=== PATIENT | male | born 1945 | race Caucasian/White ===

== ENCOUNTER 2018-04-22 17:03 | Inpatient (IN) | payer MEDICARE ==
--- NOTE | 2018-04-22 18:16 | ED ---
General Adult HPI - General Chief complaint: Recheck/Abnormal Lab/Rx Stated complaint: A-Fib Time Seen by Provider: 04/22/18 17:03 Source: patient, EMS, RN notes reviewed Mode of arrival: EMS Limitations: physical limitation - History of Present Illness Initial comments: This is a 73-year-old male with a history of hypertension diabetes who apparently was taken to [facility] today because of a headache and was found have a new onset atrial fibrillation with a rapid ventricular response. He was transferred here for further evaluation and treatment. He did have a CAT scan done which showed no acute findings. Patient also apparently had low blood pressure running 10 to 110 down from his normal 1:30 systolic. Currently the headache is been going on for 2 days.. No other symptoms no other modifying factors.6 - Related Data Home Medications Medication Instructions Recorded Confirmed Allopurinol [Zyloprim] 300 mg PO DAILY 04/22/18 04/22/18 Aspirin EC [Ecotrin Low Dose] 81 mg PO DAILY 04/22/18 04/22/18 Atorvastatin [Lipitor] 20 mg PO HS 04/22/18 04/22/18 Atorvastatin [Lipitor] 20 mg PO HS 04/22/18 04/22/18 Carvedilol [Coreg] 6.25 mg PO BID 04/22/18 04/22/18 Cephalexin [Keflex] 500 mg PO Q8HR 04/22/18 04/22/18 Cholecalciferol [Vitamin D3] 1,000 unit PO DAILY 04/22/18 04/22/18 Colchicine [Colcrys] 0.6 mg PO DAILY 04/22/18 04/22/18 Cyanocobalamin (Vitamin B-12) 2,500 mcg PO DAILY 04/22/18 04/22/18 [Vitamin B12] DULoxetine HCL [Cymbalta] 60 mg PO DAILY 04/22/18 04/22/18 Furosemide [Lasix] 40 mg PO BID 04/22/18 04/22/18 Gabapentin [Neurontin] 200 mg PO BID 04/22/18 04/22/18 Levothyroxine Sodium [Synthroid] 50 mcg PO DAILY 04/22/18 04/22/18 Losartan Potassium [Cozaar] 25 mg PO DAILY 04/22/18 04/22/18 Pantoprazole [Protonix] 40 mg PO BID 04/22/18 04/22/18 Potassium Chloride ER [K-Dur 20] 20 meq PO BID 04/22/18 04/22/18 Tamsulosin [Flomax] 0.4 mg PO DAILY 04/22/18 04/22/18 metFORMIN HCL [Glucophage] 500 mg PO BID 04/22/18 04/22/18 Allergies Allergy/AdvReac Type Severity Reaction Status Date / Time No Known Allergies Allergy Verified 04/22/18 17:33 Review of Systems ROS Statement: Those systems with pertinent positive or pertinent negative responses have been documented in the HPI. ROS Other: All systems not noted in ROS Statement are negative. Past Medical History Past Medical History: Diabetes Mellitus, Hypertension History of Any Multi-Drug Resistant Organisms: None Reported Past Surgical History: Ear Surgery Additional Past Surgical History / Comment(s): stents, abdominal surgery Past Psychological History: Depression Smoking Status: Current every day smoker Past Alcohol Use History: None Reported Past Drug Use History: None Reported General Exam - General Exam Comments Initial Comments: This a well-developed well-nourished awake alert oriented 3 male Limitations: physical limitation General appearance: alert, in no apparent distress Head exam: Present: atraumatic, normocephalic, normal inspection Eye exam: Present: normal appearance, PERRL, EOMI. Absent: scleral icterus, conjunctival injection, periorbital swelling ENT exam: Present: normal exam, mucous membranes moist Neck exam: Present: normal inspection. Absent: tenderness, meningismus, lymphadenopathy Respiratory exam: Present: normal lung sounds bilaterally. Absent: respiratory distress, wheezes, rales, rhonchi, stridor Cardiovascular Exam: Present: irregular rhythm, normal heart sounds. Absent: systolic murmur, diastolic murmur, rubs, gallop, clicks GI/Abdominal exam: Present: soft, normal bowel sounds. Absent: distended, tenderness, guarding, rebound, rigid Extremities exam: Present: full ROM, normal capillary refill, other (Edema to the left lower extremity compared to the right this is a chronic event going on for more than one half years he states). Absent: tenderness, pedal edema, joint swelling, calf tenderness Back exam: Present: normal inspection Neurological exam: Present: alert, oriented X3, CN II-XII intact Psychiatric exam: Present: normal affect, normal mood Skin exam: Present: warm, dry, intact, normal color. Absent: rash Course Vital Signs 04/22/18 17:12 Temperature 97.5 F L Pulse Rate 68 Respiratory 17 Rate Blood Pressure 132/63 O2 Sat by Pulse 97 Oximetry Medical Decision Making - Medical Decision Making I did review the imaging and reports. Patient will be admitted for evaluation by cardiology at did discuss case with Dr. Jones who did come to see the patient. Disposition Clinical Impression: Rapid atrial fibrillation Disposition: ADMITTED IP TO THIS HOSP Condition: Stable Referrals: Jose Mcpherson MD [Primary Care Provider] - 1-2 days
[2018-04-22] MEDS ORDERED: NALOXONE 0.4 MG/ML 1 ML VIAL IV PRN (19:13)
[2018-04-22] MEDS ORDERED: HEPARIN SOD,PORK IN 0.45% NACL 25,000 UNIT in 0.45% NACL 1 500ML.BAG IV SCH (19:30)
[2018-04-22] MEDS: SODIUM CHLORIDE 0.9% 1,000 ML IV SCH (19:31)
[2018-04-22 20:38] LABS: Glucose,Whole Blood 155 mg/dL (75-99)
[2018-04-22 20:40] VITALS: BMI 42.9
[2018-04-22] MEDS: ATORVASTATIN 20 MG TAB PO SCH (21:06)
[2018-04-22] MEDS: CARVEDILOL 6.25 MG TAB PO SCH (21:06)
[2018-04-22] MEDS: FUROSEMIDE 40 MG TAB PO SCH (21:06)
[2018-04-22] MEDS: GABAPENTIN 100 MG CAP PO SCH (21:06)
[2018-04-22] MEDS: metFORMIN 500 MG TAB PO SCH (21:06)
[2018-04-22] MEDS: PANTOPRAZOLE 40 MG TABLET PO SCH (21:07)
[2018-04-22] MEDS: POTASSIUM CHLORIDE ER 20 MEQ TAB.ER PO SCH (21:07)
[2018-04-22 23:06] LABS: Basophils % (A) 0 %; Eosinophils # (A) 0.2 k/uL (0-0.7); Eosinophils % (A) 3 %; HCT 34.6 % (39.0-53.0); Lymphocytes # (A) 1.1 k/uL (1.0-4.8); Lymphocytes % (A) 16 %; MCH 31.7 pg (25.0-35.0); MCHC 31.9 g/dL (31.0-37.0); MCV 99.6 fL (80.0-100.0); Macrocytosis Slight; Mean Platelet Volume 7.5; Monocytes # (A) 0.6 k/uL (0-1.0); Monocytes % (A) 9 %; Neutrophils # (A) 4.7 k/uL (1.3-7.7); Neutrophils % (A) 69 %; Platelet Count 170 k/uL (150-450); RBC 3.47 m/uL (4.30-5.90); RDW 15.3 % (11.5-15.5); WBC 6.8 k/uL (3.8-10.6)
[2018-04-22 23:14] LABS: Calcium 8.8 mg/dL (8.4-10.2); Potassium 3.9 mmol/L (3.5-5.1)
[2018-04-22] MEDS: CEPHALEXIN 500 MG CAP PO SCH (23:27)
[2018-04-23] MEDS ORDERED: HEPARIN SODIUM,PORCINE 5,000 UNIT/ML 1 ML VIAL IV PRN (02:46)
[2018-04-23 06:18] LABS: Glucose,Whole Blood 123 mg/dL (75-99)
[2018-04-23 06:44] LABS: Anion Gap 6 mmol/L; Blood Urea Nitrogen 32 mg/dL (9-20); Calcium 8.7 mg/dL (8.4-10.2); Carbon Dioxide 22 mmol/L (22-30); Chloride 106 mmol/L (98-107); Glucose 108 mg/dL (74-99); Sodium 134 mmol/L (137-145)
[2018-04-23] MEDS: FUROSEMIDE 40 MG TAB PO SCH (06:46)
[2018-04-23] MEDS: CARVEDILOL 6.25 MG TAB PO SCH ×2 (06:46→16:45)
[2018-04-23] MEDS: LEVOTHYROXINE 50 MCG TAB PO SCH (06:46)
[2018-04-23] MEDS: metFORMIN 500 MG TAB PO SCH ×2 (06:46→16:45)
[2018-04-23 06:55] LABS: Potassium 4.3 mmol/L (3.5-5.1)
[2018-04-23 08:47] LABS: Basophils # (A) 0.1 k/uL (0-0.2); Basophils % (A) 1 %; Eosinophils # (A) 0.2 k/uL (0-0.7); Eosinophils % (A) 3 %; HCT 34.6 % (39.0-53.0); HGB 10.9 gm/dL (13.0-17.5); Hypochromasia Moderate; Lymphocytes # (A) 0.8 k/uL (1.0-4.8); Lymphocytes % (A) 13 %; MCH 32.6 pg (25.0-35.0); MCHC 31.4 g/dL (31.0-37.0); MCV 103.8 fL (80.0-100.0); Macrocytosis Moderate; Mean Platelet Volume 7.8; Monocytes # (A) 0.7 k/uL (0-1.0); Monocytes % (A) 11 %; Neutrophils # (A) 4.2 k/uL (1.3-7.7); Neutrophils % (A) 69 %; Platelet Count 169 k/uL (150-450); RBC 3.33 m/uL (4.30-5.90); RDW 15.5 % (11.5-15.5); WBC 6.1 k/uL (3.8-10.6)
[2018-04-23] MEDS: CEPHALEXIN 500 MG CAP PO SCH ×3 (09:39→20:51)
[2018-04-23] MEDS: CHOLECALCIFEROL 1,000 UNIT TAB PO SCH (10:28)
[2018-04-23] MEDS: COLCHICINE 0.6 MG EACH PO SCH (10:28)
[2018-04-23] MEDS: DULoxetine HCL 60 MG CAPSULE.DR PO SCH (10:29)
[2018-04-23] MEDS: POTASSIUM CHLORIDE ER 20 MEQ TAB.ER PO SCH ×2 (10:29→20:50)
[2018-04-23] MEDS: ASPIRIN 81 MG PO SCH (10:29)
[2018-04-23] MEDS: TAMSULOSIN 0.4 MG CAP.ER.24H PO SCH (10:29)
[2018-04-23] MEDS: GABAPENTIN 100 MG CAP PO SCH ×2 (10:29→20:51)
[2018-04-23] MEDS: PANTOPRAZOLE 40 MG TABLET PO SCH ×2 (10:29→20:51)
[2018-04-23] MEDS: LOSARTAN 25 MG TAB PO SCH (10:29)
[2018-04-23] MEDS: CYANOCOBALAMIN 500 MCG TAB PO SCH (10:29)
[2018-04-23] MEDS: ALLOPURINOL 300 MG TAB PO SCH (10:29)
[2018-04-23] MEDS: APIXABAN 5 MG TAB PO SCH ×2 (10:56→20:54)
[2018-04-23] MEDS: FUROSEMIDE 10 MG/ML 4 ML VIAL IV SCH ×2 (10:56→20:50)
[2018-04-23 11:34] LABS: Glucose,Whole Blood 137 mg/dL (75-99)
--- NOTE | 2018-04-23 12:04 | ECHOF ---
Referral Reason:atrial fibrillation MEASUREMENTS -------- HEIGHT: 157.5 cm WEIGHT: 138.8 kg BP: 121/76 RVIDd: 4.8 cm (< 3.3) IVSd: 1.2 cm (0.6 - 1.1) LVIDd: 6.0 cm (3.9 - 5.3) LVPWd: 1.7 cm (0.6 - 1.1) IVSs: 1.5 cm LVIDs: 4.7 cm LVPWs: 1.5 cm Ao Diam: 3.3 cm (2.0 - 3.7) AV Cusp: 2.2 cm (1.5 - 2.6) LA Diam: 3.7 cm (2.7 - 3.8) MV EXCURSION: 32.104 mm (> 18.000) MV EF SLOPE: 117 mm/s (70 - 150) EPSS: 1.1 cm MV E Moises: 0.66 m/s MV DecT: 234 ms MV A Moises: 0.49 m/s MV E/A Ratio: 1.36 RAP: 5.00 mmHg RVSP: 45.35 mmHg FINDINGS -------- Undetermined rhythm. Morbid Obesity This was a techncally difficult study with suboptimal views, , Lumason utilized for enhancement of images. There is mild concentric left ventricular hypertrophy. Overall left ventricular systolic function i s mildly impaired with, an EF between 45 - 50 %. The right ventricle is severely enlarged. The left atrial size is normal. The right atrial size is normal. 5.0mg OF Lumason UTLIZED: 2 OR MORE WALL SEGMENTS NOT VISUALIZED. There is mild aortic valve sclerosis. There is no evidence of aortic regurgitation. Mild mitral annular calcification present. Mild mitral regurgitation is present. Mild tricuspid regurgitation present. There is mild pulmonary hypertension. The right ventricular systolic pressure, as measured by Doppler, is 45.35mmHg. Trace/mild (physiologic) pulmonic regurgitation. The aortic root size is normal. Echo free space represents a pericardial fat pad. CONCLUSIONS -------- 1. Morbid Obesity 2. This was a techncally difficult study with suboptimal views, , Lumason utilized for enhancement of images. 3. There is mild concentric left ventricular hypertrophy. 4. The right ventricle is severely enlarged. 5. The left atrial size is normal. 6. The right atrial size is normal. 7. 5.0mg OF Lumason UTLIZED: 2 OR MORE WALL SEGMENTS NOT VISUALIZED. 8. There is mild aortic valve sclerosis. 9. Mild mitral annular calcification present. 10. Mild mitral regurgitation is present. 11. Mild tricuspid regurgitation present. 12. There is mild pulmonary hypertension. 13. The right ventricular systolic pressure, as measured by Doppler, is 45.35mmHg. 14. Trace/mild (physiologic) pulmonic regurgitation. 15. The aortic root size is normal. 16. Echo free space represents a pericardial fat pad. DATABASE DEVELOPER: Jessica Regalado RDCS
--- NOTE | 2018-04-23 15:37 | CONS ---
CONSULTATION This is a 73-year-old gentleman who apparently has underlying hypertension and also has known edema of left lower extremity. He was taken to [facility] because he was complaining of some headache. After arrival he was found to be in atrial fibrillation with moderate ventricular rate and was transferred to [facility]. CT scan of the head did not reveal any acute findings. He has also had some relative hypotension, but at this time his main issue appears to be atrial fibrillation, and this seems to be a new-onset arrhythmia. He has chronic left lower extremity edema, but that seems to have gotten worse. At the time of my evaluation, he is resting comfortably. His headache has resolved and he feels better. I reviewed his rhythm strips and he has converted to sinus rhythm and remains in sinus rhythm at the time of my evaluation. This gentleman has other comorbid conditions, including type 2 diabetes as well. He has had some vascular surgery in his left foot and has chronic edema, which seems to be getting worse. PAST MEDICAL HISTORY: 1. Obesity. 2. Type 2 diabetes. 3. Hypertension. 4. History of some vascular surgery in the left leg with chronic edema. ALLERGIES: NONE. MEDICATIONS AT HOME: 1. Colchicine 0.6 mg daily. 2. Cymbalta. 3. Lasix 40 mg p.o. b.i.d. 4. Cozaar 25 mg daily. 5. Potassium supplements. 6. Flomax. 7. Glucophage 500 mg b.i.d. 8. Aspirin 81 mg daily. 9. Coreg 6.25 mg b.i.d. 10.Lipitor 20 mg daily. PHYSICAL EXAMINATION: Blood pressure is 108/70. Pulse rate is 70 per minute, sinus, regular. HEENT: Unremarkable. Fundus was not examined by me. NECK: Supple. I cannot appreciate JVD. Heart exam reveals S1, S2 with somewhat distant sounds. Lungs reveal diminished air entry. Abdomen is soft, nontender. Lower extremities reveal significant edema of left lower extremity, which is not new. Right lower extremity has trace edema, diminished pulses. Central nervous system is grossly within normal limits. EKG on arrival revealed atrial fibrillation with a moderate ventricular rate, but a repeat EKG revealed sinus mechanism. IMPRESSION: 1. Paroxysmal new-onset atrial fibrillation. 2. Chronic left lower extremity edema. 3. History of type 2 diabetes. 4. Hypertension. RECOMMENDATIONS: I am recommending Eliquis 5 mg b.i.d. and beta chin. I will check echocardiogram to assess LV function and give him some IV diuretics for the lower extremity edema and hopefully discharge him tomorrow. I will also discontinue aspirin, since we have started him on Eliquis 5 mg b.i.d. Thank you very much for the consult. KURTIS / MENDEZ: [id number] /
--- NOTE | 2018-04-23 16:07 | HP ---
HISTORY AND PHYSICAL CHIEF COMPLAINT: Rapid heart beating. HISTORY OF PRESENT ILLNESS: This is the first known admission for this 73-year-old white male. He presented to the emergency room after he had noticed that his heart was beating very fast. He has a history of hypertension, hyperlipidemia, gout, depression, diabetes. He had been at [facility] with complaint of headache and a CT scan was done. It was normal. He denies chest pain, orthopnea, PND, etc. Past medical history, family history, personal and social histories reveal that he has had surgery in the past for a large ventral hernia and problems with peripheral vascular problems affecting the legs and his left leg is extremely enlarged which could be related to chronic venous congestion, but it is difficult by history. ALLERGIES: He is not allergic to any medications. MEDICATION: His medications include atorvastatin 20 mg at bedtime, Zyloprim 300 mg once a day, 81 mg of aspirin, carvedilol 6.25 twice a day, Keflex 500 mg t.i.d., vitamin D3, colchicine 0.6 once a day, B12, duloxetine 60 mg once a day. Furosemide 40 mg b.i.d., gabapentin 200 mg b.i.d., levothyroxine 0.05 mg a day, losartan 25 mg once a day, metformin 500 mg twice a day, pantoprazole 40 mg once a day, KCl 20 mEq once a day, and tamsulosin 0.4 at bedtime. PHYSICAL EXAM: Temperature 97.5 with respirations of 18 and blood pressure 96/51. In general, he appeared to be overweight and in no acute distress. Skin color is normal. Skin is warm, dry. Lymph nodes are not enlarged. Head, ears, eyes, nose, mouth, and throat were normal. Neck veins not distended. Thyroid is not enlarged. Chest is clear. Cardiac exam demonstrated atrial fibrillation with a rapid ventricular response. The abdomen was quite distended, largely due to his upper abdominal hernia. Extremities are normal except for the left leg which was significantly edematous from the knee down. Neurologic is intact. IMPRESSION: 1. Atrial fibrillation with rapid ventricular response. 2. History of hypertension. 3. Type 2 insulin dependent diabetes mellitus. 4. Gout. 5. Venous insufficiency, left lower extremity. PLAN: 1. Bed rest. 2. IV fluids. 3. Try to at least control rate if not rhythm. 4. Echocardiogram. 5. Cardiology consult. MMODL / IJN: [id number] /
[2018-04-23 16:46] LABS: Glucose,Whole Blood 126 mg/dL (75-99)
--- NOTE | 2018-04-23 19:00 | PN ---
PROGRESS NOTE DATE OF SERVICE: 04/23/2018. CHIEF COMPLAINT: New onset atrial fibrillation. HISTORY OF PRESENT ILLNESS: This gentleman is complaining of a little bit of a headache, but otherwise doing well. He is still in atrial fibrillation. He is having his echocardiogram done at this time. PHYSICAL EXAM: Breath sounds are difficult to hear, but they sound clear bilaterally. Cardiac exam is normal the abdomen is protuberant and soft. The left leg remains extremely edematous, which is chronic. IMPRESSION: 1. New onset atrial fibrillation. 2. Congestive heart failure. 3. Headache. PLAN: Await results of echocardiogram. MMODL / IJN: [id number] /
[2018-04-23 20:51] LABS: Glucose,Whole Blood 180 mg/dL (75-99)
[2018-04-23] MEDS: ATORVASTATIN 20 MG TAB PO SCH (20:51)
[2018-04-23] MEDS: SODIUM CHLORIDE 0.9% 1,000 ML IV SCH (20:58)
[2018-04-24 06:19] LABS: Glucose,Whole Blood 113 mg/dL (75-99)
[2018-04-24] MEDS: LEVOTHYROXINE 50 MCG TAB PO SCH (06:22)
[2018-04-24] MEDS: metFORMIN 500 MG TAB PO SCH ×2 (06:22→17:02)
[2018-04-24] MEDS: CARVEDILOL 6.25 MG TAB PO SCH ×2 (06:23→17:02)
[2018-04-24] MEDS: CYANOCOBALAMIN 500 MCG TAB PO SCH (09:05)
[2018-04-24] MEDS: TAMSULOSIN 0.4 MG CAP.ER.24H PO SCH (09:05)
[2018-04-24] MEDS: POTASSIUM CHLORIDE ER 20 MEQ TAB.ER PO SCH ×2 (09:05→21:11)
[2018-04-24] MEDS: APIXABAN 5 MG TAB PO SCH ×2 (09:05→21:11)
[2018-04-24] MEDS: GABAPENTIN 100 MG CAP PO SCH ×2 (09:06→21:11)
[2018-04-24] MEDS: PANTOPRAZOLE 40 MG TABLET PO SCH ×2 (09:06→21:11)
[2018-04-24] MEDS: DULoxetine HCL 60 MG CAPSULE.DR PO SCH (09:06)
[2018-04-24] MEDS: ASPIRIN 81 MG PO SCH (09:06)
[2018-04-24] MEDS: CEPHALEXIN 500 MG CAP PO SCH ×3 (09:06→21:11)
[2018-04-24] MEDS: CHOLECALCIFEROL 1,000 UNIT TAB PO SCH (09:06)
[2018-04-24] MEDS: FUROSEMIDE 10 MG/ML 4 ML VIAL IV SCH (09:07)
[2018-04-24] MEDS: COLCHICINE 0.6 MG EACH PO SCH (09:07)
[2018-04-24] MEDS: ALLOPURINOL 300 MG TAB PO SCH (09:11)
[2018-04-24] MEDS: LOSARTAN 25 MG TAB PO SCH (09:12)
[2018-04-24 10:44] LABS: Calcium 9.2 mg/dL (8.4-10.2); Potassium 4.1 mmol/L (3.5-5.1)
[2018-04-24] MEDS ORDERED: MORPHINE SULFATE 2 MG/ML SYRINGE IVP ONE (11:00)
--- NOTE | 2018-04-24 12:16 | CT ---
EXAMINATION TYPE: CT angio chest DATE OF EXAM: 04/24/2018 11:49 AM COMPARISON: None. HISTORY: Chest pain. CT DLP: 629 mGycm Automated exposure control for dose reduction was used. CONTRAST: CTA scan of the thorax is performed with IV Contrast, patient injected with 80 mL of Isovue 370, pulm onary embolism protocol. . FINDINGS: There is dependent atelectasis in the dependent portions of the lungs. There is emphysemato us change throughout the lungs. There is no significant axillary, mediastinal or hilar adenopathy. The contrast bolus is suboptimal. There are no large pulmonary emboli. There is no pleural or pericardial fluid. The heart is enlarged. There is a 7.1 cm simple appearing cystic lesion in the left upper quadrant. This likely arises from the left kidney. Visualized portions of the upper abdomen are otherwise unremarkable. There is mild hypertrophic spondylosis within the spine. IMPRESSION: 1. SUBOPTIMAL EXAMINATION DEMONSTRATING NO LARGE PULMONARY EMBOLI. 2. CARDIOMEGALY. 3. PROBABLE LEFT RENAL CYST. 4. MILD DEGENERATIVE CHANGE WITHIN THE SPINE.
[2018-04-24 12:25] LABS: Glucose,Whole Blood 103 mg/dL (75-99)
--- NOTE | 2018-04-24 12:41 | PN ---
PROGRESS NOTE Mr. Quinonez is in a sinus rhythm today. He came in with atrial fib. He is on Eliquis 5 mg b.i.d. He has significant edema of left lower extremity which is chronic and not new. I tried some diuretics. I will switch him from IV to oral diuretics at 80 mg in the morning, 40 in the evening, increase activity. He is complaining of constant headache. I will give him extra Strength Tylenol and 1 mg of morphine and see if this will help him. He is in sinus rhythm, S1-S2 heard normally but distantly. No significant murmurs. Lungs are clear. Abdomen is soft. Left lower extremity edema persists but there is no evidence of any cellulitis. Overall, there is some decrease in weight and I will switch him to oral Lasix. MMBRYCEL / IJN: [id number] /
[2018-04-24 16:30] LABS: Glucose,Whole Blood 141 mg/dL (75-99)
[2018-04-24 20:36] LABS: Glucose,Whole Blood 158 mg/dL (75-99)
[2018-04-24] MEDS: SODIUM CHLORIDE 0.9% 1,000 ML IV SCH (21:11)
[2018-04-24] MEDS: ATORVASTATIN 20 MG TAB PO SCH (21:11)
--- NOTE | 2018-04-24 22:34 | PN ---
PROGRESS NOTE CHIEF COMPLAINT: New onset atrial fibrillation with RVR. HISTORY OF PRESENT ILLNESS: This gentleman is complaining a little bit of a headache, but he is improved. He is not having any shortness of breath. He has anticoagulated. PHYSICAL EXAM: His chest is fairly clear. Cardiac is normal except for the atrial fibrillation. The left leg is still very edematous, which is chronic. IMPRESSION: 1. Atrial fibrillation, new onset. 2. Pulmonary emboli. PLAN: 1. Continue with anticoagulation. 2. Increase activity. 3. Home as soon as he is hemodynamically stable. MMODL / IJN: [id number] /
[2018-04-25] MEDS: ACETAMINOPHEN TAB 500 MG TAB PO PRN ×3 (03:11→23:49)
[2018-04-25] MEDS: CARVEDILOL 6.25 MG TAB PO SCH ×2 (06:11→17:12)
[2018-04-25] MEDS: metFORMIN 500 MG TAB PO SCH ×2 (06:11→17:12)
[2018-04-25] MEDS: LEVOTHYROXINE 50 MCG TAB PO SCH (06:11)
[2018-04-25 06:15] LABS: Glucose,Whole Blood 160 mg/dL (75-99)
[2018-04-25] MEDS: LOSARTAN 25 MG TAB PO SCH (08:16)
[2018-04-25] MEDS: GABAPENTIN 100 MG CAP PO SCH ×2 (08:16→20:18)
[2018-04-25] MEDS: CHOLECALCIFEROL 1,000 UNIT TAB PO SCH (08:16)
[2018-04-25] MEDS: APIXABAN 5 MG TAB PO SCH ×2 (08:16→20:18)
[2018-04-25] MEDS: ALLOPURINOL 300 MG TAB PO SCH (08:16)
[2018-04-25] MEDS: TAMSULOSIN 0.4 MG CAP.ER.24H PO SCH (08:16)
[2018-04-25] MEDS: CEPHALEXIN 500 MG CAP PO SCH ×3 (08:16→20:18)
[2018-04-25] MEDS: POTASSIUM CHLORIDE ER 20 MEQ TAB.ER PO SCH ×2 (08:16→20:18)
[2018-04-25] MEDS: DULoxetine HCL 60 MG CAPSULE.DR PO SCH (08:16)
[2018-04-25] MEDS: CYANOCOBALAMIN 500 MCG TAB PO SCH (08:16)
[2018-04-25] MEDS: COLCHICINE 0.6 MG EACH PO SCH (08:16)
[2018-04-25] MEDS: FUROSEMIDE 80 MG TAB PO SCH (08:16)
[2018-04-25] MEDS: ASPIRIN 81 MG PO SCH (08:16)
[2018-04-25] MEDS: PANTOPRAZOLE 40 MG TABLET PO SCH ×2 (08:16→20:18)
[2018-04-25 12:03] LABS: Glucose,Whole Blood 104 mg/dL (75-99)
--- NOTE | 2018-04-25 13:25 | PN ---
PROGRESS NOTE CHIEF COMPLAINT: Atrial fibrillation and pulmonary emboli. HISTORY OF PRESENT ILLNESS: This gentleman is a doing a bit better and he is a bit less short of breath. . is clear. Cardiac exam demonstrates his atrial fibrillation and legs are the same. IMPRESSION: 1. Atrial fibrillation. 2. Pulmonary emboli. PLAN: Continues to do well, he will probably be able to go home tomorrow. MMODL / IJN: [id number] /
[2018-04-25] MEDS: FUROSEMIDE 40 MG TAB PO SCH (15:28)
[2018-04-25 16:49] LABS: Glucose,Whole Blood 143 mg/dL (75-99)
[2018-04-25] MEDS: ATORVASTATIN 20 MG TAB PO SCH (20:18)
[2018-04-25] MEDS: SODIUM CHLORIDE 0.9% 1,000 ML IV SCH (20:18)
[2018-04-25 20:54] LABS: Glucose,Whole Blood 144 mg/dL (75-99)
[2018-04-26 06:04] LABS: Glucose,Whole Blood 133 mg/dL (75-99)
[2018-04-26] MEDS: LEVOTHYROXINE 50 MCG TAB PO SCH (06:20)
[2018-04-26] MEDS: metFORMIN 500 MG TAB PO SCH ×2 (06:20→17:01)
[2018-04-26] MEDS: CARVEDILOL 6.25 MG TAB PO SCH ×2 (06:20→17:01)
[2018-04-26] MEDS: LOSARTAN 25 MG TAB PO SCH (08:38)
[2018-04-26] MEDS: COLCHICINE 0.6 MG EACH PO SCH (08:38)
[2018-04-26] MEDS: ALLOPURINOL 300 MG TAB PO SCH (08:38)
[2018-04-26] MEDS: ASPIRIN 81 MG PO SCH (08:38)
[2018-04-26] MEDS: TAMSULOSIN 0.4 MG CAP.ER.24H PO SCH (08:38)
[2018-04-26] MEDS: FUROSEMIDE 80 MG TAB PO SCH (08:38)
[2018-04-26] MEDS: DULoxetine HCL 60 MG CAPSULE.DR PO SCH (08:38)
[2018-04-26] MEDS: PANTOPRAZOLE 40 MG TABLET PO SCH ×2 (08:38→21:19)
[2018-04-26] MEDS: GABAPENTIN 100 MG CAP PO SCH ×2 (08:38→21:20)
[2018-04-26] MEDS: CYANOCOBALAMIN 500 MCG TAB PO SCH (08:38)
[2018-04-26] MEDS: POTASSIUM CHLORIDE ER 20 MEQ TAB.ER PO SCH ×2 (08:38→21:19)
[2018-04-26] MEDS: APIXABAN 5 MG TAB PO SCH ×2 (08:38→21:19)
[2018-04-26] MEDS: CEPHALEXIN 500 MG CAP PO SCH ×3 (08:38→23:59)
[2018-04-26] MEDS: ACETAMINOPHEN TAB 500 MG TAB PO PRN ×2 (08:42→23:59)
[2018-04-26 11:55] LABS: Glucose,Whole Blood 116 mg/dL (75-99)
--- NOTE | 2018-04-26 14:05 | CDI ---
Last Revision, July 2017 Documentation Clarification Form Date: 04/27/2018 1:36:58 PM From: Areli Weinberg RN, CCDS Admit Date: 04/22/2018 7:13:00 PM Patient Name: Lyle Quinonez Visit Number: [id number] Discharge Date: ATTENTION: The Clinical Documentation Specialists (CDI) and [facility] Coding Staff appreciate your assistance in clarifying documentation. Please respond to the clarification below the line at the bottom and electronically sign. The CDI & [facility] Coding staff will review the response and follow-up if needed. Please note: Queries are made part of the Legal Health Record. If you have any questions, please contact the author of this message via ITS. Bradly Castillo MD Congestive heart failure is in your documentation on 04/23/18 History/Risk Factors: Hypertension, Hyperlipidemia, Gout, Diabetes mellitus, Chronic lover extremity edema, Obesity Clinical Indicators: Present with complaints heart was beating very fast. VS/Pulse OX: 132/63 68 17 97.5 97 % BNP: 833 EKG: Atrial fibrillation Echocardiogram Results: Right ventricle is severely enlarged, mild pulmonary hypertension, EF between 45-50 % Chest CT Angio : Dependent atelectasis. there is emphysematous change throughout the lungs. No large pulmonary emboli, There is no pleural or pericardial fluid. The heart is enlarged. Treatment: ECHO Lasix IV 04/23/18 Cardiology consult: New onset of paroxysmal atrial fibrillation. He has chronic left lower extremity edema will treat with IV Lasix (was on Lasix PO BID at home) In your professional opinion, can you please clarify the acuity and type of CHF if known? Or if the Congestive heart failure was ruled out Systolic Heart Failure: Acute Chronic Acute on Chronic Unable to Determine Other, please specify Please continue to document in your progress notes and discharge summary in order to capture severity of illness and risk of mortality. Include clinical findings that support your diagnosis. MTDD
[2018-04-26] MEDS: FUROSEMIDE 40 MG TAB PO SCH (15:16)
[2018-04-26] MEDS: CHOLECALCIFEROL 1,000 UNIT TAB PO SCH (15:16)
--- NOTE | 2018-04-26 15:49 | PN ---
PROGRESS NOTE Mr. Quinonez is a gentleman with bilateral lower extremity edema with venous insufficiency left being larger than right. He is doing well overall. He came in with atrial fib but is back in the sinus rhythm. He is being anticoagulated. Vital signs are stable. S1, S2 heard normally. JVD is 1 cm. No carotid bruit. Lungs reveal improved air entry. Abdomen is soft. Lower extremity edema persists and unchanged, left is more than right. Patient from my standpoint can be discharged and treated with diuretics as an outpatient and follow up with his PCP. He is well anticoagulated given his atrial fibrillation. MMODL / IJN: [id number] /
[2018-04-26] MEDS: SODIUM CHLORIDE 0.9% 1,000 ML IV SCH (17:15)
[2018-04-26 18:01] LABS: Anion Gap 8 mmol/L; Blood Urea Nitrogen 20 mg/dL (9-20); Carbon Dioxide 27 mmol/L (22-30); Chloride 102 mmol/L (98-107); Glucose 120 mg/dL (74-99); Potassium 4.1 mmol/L (3.5-5.1); Sodium 137 mmol/L (137-145)
--- NOTE | 2018-04-26 19:05 | PN ---
PROGRESS NOTE CHIEF COMPLAINT: Atrial fibrillation and pulmonary emboli. HISTORY OF PRESENT ILLNESS: This gentleman is breathing a little bit better and is little bit more active, but he is having significant problem with headache. He has had no neurologic symptoms, change in vision or hearing, etc. PHYSICAL EXAM: Pupils equal, round, and reactive. Extraocular movements are normal. Neck is supple. Chest is clear. The cardiac exam is normal. IMPRESSION: 1. Atrial fibrillation. 2. Status for pulmonary emboli. 3. Unexplained headache. PLAN: 1. CT of the brain. 2. If this is negative, probably home tomorrow. MMODL / IJN: [id number] /
--- NOTE | 2018-04-26 19:32 | CT ---
EXAMINATION TYPE: CT brain wo/w con DATE OF EXAM: 04/26/2018 COMPARISON: None HISTORY: Headache CT DLP: mGycm Automated exposure control for dose reduction was used. CONTRAST: Isovue 100 mL. FINDINGS: There is cerebral cortical atrophy. There is no mass effect nor midline shift. There is no sign of in tracranial hemorrhage. The calvarium is intact. Contrast images show no pathologic enhancement. There is normal opacification of the venous sinuses. IMPRESSION: Cerebral atrophy. No acute intracranial abnormality.
[2018-04-26 21:06] LABS: Glucose,Whole Blood 102 mg/dL (75-99)
[2018-04-26] MEDS: ATORVASTATIN 20 MG TAB PO SCH (21:20)
--- NOTE | 2018-04-27 01:24 | P.CNNES ---
History of Present Illness Consult date: 04/26/18 Reason for Consult: Patient is being evaluated for headaches. History of Present Illness: This patient is a 73-year-old right-handed white male who was admitted to [facility] for new onset atrial fibrillation and headache. The patient initially presented to [facility] with a complaint of headache. On arrival to the ER he was found to have new onset atrial fibrillation. He was transferred to [facility] for cardiology consultation and further management. Patient has no previous history of atrial fibrillation. He does have a known history of chronic left lower extremity edema. Apparently there has been worsening over the last several weeks. Patient is not a very good historian but states his headaches are mostly around the bifrontal area. Soon after admission he did undergo a computed tomography scan of the brain today which reveals evidence of cerebral atrophy with no acute intracranial abnormality. The patient states that headache intensity is 5 /10. Apparently when he was first admitted to Hospital on 04/22/2018 the headache intensity was 7/10. The patient was seen by cardiology for paroxysmal new onset atrial fibrillation. He was recommended to start on Eliquis 5 mg by mouth twice a day and a beta chin. His aspirin was discontinued by cardiology. The patient continues to experience intermittent headache symptoms. As noted his CAT scan of the brain revealed no acute findings. Given the fact that he has new onset atrial fibrillation we have recommended he have an MRI of the brain to rule out any possibility of embolic stroke. Patient states he has been bothered with headaches for the past 7 days. The intensity worsen and that's what brought him initially to the hospital. The patient denies any previous history of head trauma or head injury. He has no previous history of seizures. His headache intensity has diminished since his initial admission to hospital. Since the patient is on anticoagulation we would recommend avoiding nonsteroidal medications for headache management. Instead we will start the patient on low dose Neurontin 300 mg by mouth twice a day to see if this will alleviate some of his headache pain. Once again we would recommend further evaluation for the patient by cardiology. We will continue close neurological follow-up of this patient during this admission. His overall prognosis at this time remains guarded. Review of Systems Constitutional: Denies chills, Denies fever Eyes: denies blurred vision, denies pain Ears, nose, mouth and throat: Denies headache, Denies sore throat Cardiovascular: Denies chest pain, Denies shortness of breath Respiratory: Denies cough Gastrointestinal: Denies abdominal pain, Denies diarrhea, Denies nausea, Denies vomiting Musculoskeletal: Denies myalgias Integumentary: Denies pruritus, Denies rash Neurological: Reports confusion, Reports headaches, Reports memory loss, Denies numbness, Denies weakness Psychiatric: Denies anxiety, Denies depression Endocrine: Denies fatigue, Denies weight change Past Medical History Past Medical History: Diabetes Mellitus, Hypertension, Myocardial Infarction ([place] ) Additional Past Medical History / Comment(s): Patient states "he has 1 kidney, kidney removed in 1987, inn= [facility]". Patient states "he see's Dr. Braswell for pin-hole in heart". Last Myocardial Infarction Date:: 1973 History of Any Multi-Drug Resistant Organisms: None Reported Past Surgical History: Ear Surgery Additional Past Surgical History / Comment(s): stents, abdominal surgery. Patient states "he had aneurysms x2, as well a leg stent". Past Anesthesia/Blood Transfusion Reactions: No Reported Reaction Past Psychological History: Depression Smoking Status: Former smoker Past Alcohol Use History: None Reported Past Drug Use History: None Reported - Past Family History Mother History Unknown: Yes Father History Unknown: Yes Medications and Allergies Home Medications Medication Instructions Recorded Confirmed Type Allopurinol [Zyloprim] 300 mg PO DAILY 04/22/18 04/22/18 History Aspirin EC [Ecotrin Low Dose] 81 mg PO DAILY 04/22/18 04/22/18 History Atorvastatin [Lipitor] 20 mg PO HS 04/22/18 04/22/18 History Atorvastatin [Lipitor] 20 mg PO HS 04/22/18 04/22/18 History Carvedilol [Coreg] 6.25 mg PO BID 04/22/18 04/22/18 History Cephalexin [Keflex] 500 mg PO Q8HR 04/22/18 04/22/18 History Cholecalciferol [Vitamin D3] 1,000 unit PO DAILY 04/22/18 04/22/18 History Colchicine [Colcrys] 0.6 mg PO DAILY 04/22/18 04/22/18 History Cyanocobalamin (Vitamin B-12) 2,500 mcg PO DAILY 04/22/18 04/22/18 History [Vitamin B12] DULoxetine HCL [Cymbalta] 60 mg PO DAILY 04/22/18 04/22/18 History Furosemide [Lasix] 40 mg PO BID 04/22/18 04/22/18 History Gabapentin [Neurontin] 200 mg PO BID 04/22/18 04/22/18 History Levothyroxine Sodium [Synthroid] 50 mcg PO DAILY 04/22/18 04/22/18 History Losartan Potassium [Cozaar] 25 mg PO DAILY 04/22/18 04/22/18 History Pantoprazole [Protonix] 40 mg PO BID 04/22/18 04/22/18 History Potassium Chloride ER [K-Dur 20] 20 meq PO BID 04/22/18 04/22/18 History Tamsulosin [Flomax] 0.4 mg PO DAILY 04/22/18 04/22/18 History metFORMIN HCL [Glucophage] 500 mg PO BID 04/22/18 04/22/18 History Allergies Allergy/AdvReac Type Severity Reaction Status Date / Time No Known Allergies Allergy Verified 04/22/18 17:33 Physical Examination - Vital Signs Vital Signs: Vital Signs Temp Pulse Resp BP Pulse Ox 04/26/18 15:46 97.5 F L 82 18 122/78 97 04/26/18 12:00 97.3 F L 65 18 151/85 96 04/26/18 07:56 97.0 F L 71 18 147/91 92 L 04/26/18 03:48 97.9 F 66 18 128/75 93 L 04/26/18 03:47 87 18 04/26/18 00:00 87 18 04/25/18 23:59 98.3 F 87 18 117/72 93 L Intake and Output 04/26/18 04/26/18 04/26/18 06:59 14:59 22:59 Intake Total 480 240 Output Total 775 1200 800 Balance -775 -720 -560 Intake: Oral 480 240 Output: Urine 775 1200 800 Other: Voiding Method Urinal Urinal # Voids 2 Weight 138.3 kg - Constitutional General appearance: average body habitus, cooperative - EENT EENT: PERRL, mucous membranes moist - Respiratory Respiratory: lungs clear, normal breath sounds - Cardiovascular Cardiovascular: regular rate, normal S1, normal S2 Extremities: no peripheral edema bilaterally - Gastrointestinal Gastrointestinal: normoactive bowel sounds - Integumentary Integumentary: normal - Neurologic Cranial nerve examination: PERRL, EOMI, VFF, V1/V2/V3 grossly intact, face symmetric, tongue midline, intact gag reflex, intact corneal reflex, normal palatal elevation Speech examination: intact Motor examination - right side: 4/5: biceps, triceps, wrist flexion, wrist extension, quill buncher and sorter, hip flexors, knee extensors, dorsiflexion, toe extension (EHL) , plantarflexion Motor examination - left side: 4/5: biceps, triceps, wrist flexion, wrist extension, quill buncher and sorter, hip flexors, knee extensors, dorsiflexion, toe extension (EHL) , plantarflexion Detailed sensory examination: intact Reflex and gait examination: intact Reflexes: 1+: ankle, bicep, knee, tricep - Musculoskeletal Musculoskeletal: no pain - Psychiatric Psychiatric: mood/affect appropriate, cooperative Results - Laboratory Findings CBC and BMP: 04/23/18 05:59 04/26/18 17:18 Abnormal Lab Findings: Abnormal Labs 04/22/18 04/22/18 04/22/18 20:36 22:36 22:36 RBC 3.47 L Hgb 11.0 L Hct 34.6 L MCV Lymphocytes # APTT D-Dimer Sodium 134 L BUN 35 H Glucose 133 H POC Glucose (mg/dL) 155 H 04/23/18 04/23/18 04/23/18 05:59 05:59 05:59 RBC 3.33 L Hgb 10.9 L Hct 34.6 L MCV 103.8 H Lymphocytes # 0.8 L APTT 34.8 H D-Dimer Sodium 134 L BUN 32 H Glucose 108 H POC Glucose (mg/dL) 04/23/18 04/23/18 04/23/18 06:15 11:32 16:44 RBC Hgb Hct MCV Lymphocytes # APTT D-Dimer Sodium BUN Glucose POC Glucose (mg/dL) 123 H 137 H 126 H 04/23/18 04/23/18 04/24/18 18:48 20:50 06:16 RBC Hgb Hct MCV Lymphocytes # APTT D-Dimer 2.33 H Sodium BUN Glucose POC Glucose (mg/dL) 180 H 113 H 04/24/18 04/24/18 04/24/18 10:13 12:23 16:28 RBC Hgb Hct MCV Lymphocytes # APTT D-Dimer Sodium BUN 28 H Glucose 142 H POC Glucose (mg/dL) 103 H 141 H 04/24/18 04/25/18 04/25/18 20:34 06:12 11:38 RBC Hgb Hct MCV Lymphocytes # APTT D-Dimer Sodium BUN Glucose POC Glucose (mg/dL) 158 H 160 H 104 H 04/25/18 04/25/18 04/26/18 16:46 20:53 06:03 RBC Hgb Hct MCV Lymphocytes # APTT D-Dimer Sodium BUN Glucose POC Glucose (mg/dL) 143 H 144 H 133 H 04/26/18 04/26/18 11:32 17:18 RBC Hgb Hct MCV Lymphocytes # APTT D-Dimer Sodium BUN Glucose 120 H POC Glucose (mg/dL) 116 H Assessment and Plan (1) Headache Current Visit: Yes Status: Acute Code(s): R51 - HEADACHE SNOMED Code(s): 65122406 (2) New onset atrial fibrillation Current Visit: Yes Status: Acute Code(s): I48.91 - UNSPECIFIED ATRIAL FIBRILLATION SNOMED Code(s): 17307959 (3) Hypertension Current Visit: Yes Status: Acute Code(s): I10 - ESSENTIAL (PRIMARY) HYPERTENSION SNOMED Code(s): 07032004 (4) Chronic edema Current Visit: Yes Status: Acute Code(s): R60.9 - EDEMA, UNSPECIFIED SNOMED Code(s): 773726178 Plan: This patient is a 73-year-old male who was admitted to Hospital with symptoms of new onset atrial fibrillation as well as headache. He underwent an initial computed tomography scan at [facility] which was reported normal. He was then transferred to [facility] for further management of his new onset of atrial fibrillation. Neurology was consulted today for further evaluation of his headache symptoms. Patient states he has been having headaches for the past 7-10 days and it is usually on the bifrontal and vertex area of the scalp. It can be quite intense as high as 7/10 in intensity but on average she feels currently is about 5/10 bilaterally. The patient denies any recent history of stroke or TIA. He has no history of head trauma or head injury in the past. He was seen by cardiology for his new onset of atrial fibrillation and they have started him on Eliquis 5 mg by mouth twice a day. His aspirin has been discontinued. The patient may benefit from a higher dose of gabapentin for treatment of his headache. We would recommend placing him on Neurontin 300 mg 1 by mouth 3 times a day. Since he has history of new onset atrial fibrillation and headache we have recommended a MRI of the brain to be done to rule out any possibility of cortical stroke. He is to avoid nonsteroidal use of medications due to the fact that he is now on Eliquis. We will continue close neurological follow-up with this patient during this admission. His overall prognosis at this time remains guarded. Time with Patient: Greater than 30
[2018-04-27] MEDS: LEVOTHYROXINE 50 MCG TAB PO SCH (06:39)
[2018-04-27 07:49] LABS: Glucose,Whole Blood 136 mg/dL (75-99)
[2018-04-27] MEDS: CYANOCOBALAMIN 500 MCG TAB PO SCH (08:38)
[2018-04-27] MEDS: GABAPENTIN 300 MG CAP PO SCH ×3 (08:38→22:21)
[2018-04-27] MEDS: TAMSULOSIN 0.4 MG CAP.ER.24H PO SCH (08:38)
[2018-04-27] MEDS: COLCHICINE 0.6 MG EACH PO SCH (08:39)
[2018-04-27] MEDS: APIXABAN 5 MG TAB PO SCH ×2 (08:39→22:21)
[2018-04-27] MEDS: metFORMIN 500 MG TAB PO SCH ×2 (08:39→17:43)
[2018-04-27] MEDS: PANTOPRAZOLE 40 MG TABLET PO SCH ×2 (08:39→22:21)
[2018-04-27] MEDS: ALLOPURINOL 300 MG TAB PO SCH (08:39)
[2018-04-27] MEDS: FUROSEMIDE 80 MG TAB PO SCH (08:39)
[2018-04-27] MEDS: CARVEDILOL 6.25 MG TAB PO SCH ×2 (08:40→17:43)
[2018-04-27] MEDS: ASPIRIN 81 MG PO SCH (08:40)
[2018-04-27] MEDS: POTASSIUM CHLORIDE ER 20 MEQ TAB.ER PO SCH ×2 (08:40→22:21)
[2018-04-27] MEDS: LOSARTAN 25 MG TAB PO SCH (08:40)
[2018-04-27] MEDS: DULoxetine HCL 60 MG CAPSULE.DR PO SCH (08:40)
[2018-04-27] MEDS: CEPHALEXIN 500 MG CAP PO SCH ×2 (09:19→15:22)
[2018-04-27] MEDS: CHOLECALCIFEROL 1,000 UNIT TAB PO SCH (09:19)
--- NOTE | 2018-04-27 10:21 | MR ---
MR brain without contrast HISTORY: Bifrontal headaches Multiplanar multisequence imaging through the brain and correlated to CT brain 04/26/2018 There is no restricted diffusion. Cortical atrophy shows a stable appearance. There are normal vascul ar flow voids present. Cerebellopontine angles, corpus callosum, pituitary, cervical medullary juncti on are within normal limits. Focal encephalomalacia present at the level of the basal ganglia on the left with some associated gliotic change. Some increased signal on inversion recovery and T2-weighted sequences also present in the deep white matter frontal lobe inferior to the frontal horn of the lef t lateral ventricle as noted on CT. Some periventricular white matter increased signal also correspon ds to abnormal density on the. Some prominence of extra-axial fluid collection may be due to cortical atrophy or possibly small bilateral chronic subdural hygromas as on CT. The orbits show symmetric ap pearance. There is inflammatory change in the ethmoid air cells, possible mucus retention cyst right left maxillary sinuses. Postop change noted to the temporal bone on the right, fluid signal present a long the middle ear and external auditory canal. IMPRESSION: No acute brain abnormality. Evidence of chronic small vessel ischemia. Sinus disease. Pos sible subdural hygromas.
[2018-04-27 12:03] LABS: Glucose,Whole Blood 128 mg/dL (75-99)
[2018-04-27] MEDS: FUROSEMIDE 40 MG TAB PO SCH (15:23)
--- NOTE | 2018-04-27 16:07 | P.PN ---
Subjective Progress Note Date: 04/27/18 This patient is a 73-year-old right-handed white male who was admitted to Hospital with new onset atrial fibrillation and headaches. The patient was complaining of severe bifrontal headaches on initial consultation yesterday on the medical floor. We recommended the patient undergo MRI of the brain for further evaluation. He was able to complete the MRI of the brain today which reveals no acute brain abnormality. There was evidence is chronic small vessel ischemia. There was possibility of subdural hygromas noted on this exam. We reviewed the results of the MRI today with the patient. He states overall he is doing about the same with no worsening headache symptoms. He is being treated for new onset of atrial fibrillation and is being followed closely by cardiology. Once again his MRI failed to reveal any evidence of acute ischemic stroke secondary to his atrial fibrillation. For headache management yesterday we did increase his dose of Neurontin to 3 and a milligrams 1 tablet 3 times a day. We recommended weight for 1-2 weeks to see how efficacious this higher dose of Neurontin may be. This can be titrated even further depending on his response. We will continue close neurological follow-up with this patient during this admission. Objective - Vital Signs Vital signs: Vital Signs Temp 98.3 F 04/27/18 07:00 Pulse 94 04/27/18 07:00 Resp 18 04/27/18 07:00 BP 129/79 04/27/18 07:00 Pulse Ox 94 L 04/27/18 07:00 Intake & Output 04/26/18 04/27/18 04/27/18 18:59 06:59 18:59 Intake Total 720 200 Output Total 1600 400 Balance -880 -400 200 Intake: Oral 720 200 Output: Urine 1600 400 Other: Voiding Method Urinal Urinal # Voids 3 - Exam Physical examination: PHYSICAL EXAMINATION: Patient is resting comfortably in bed. VITAL SIGNS: Blood pressure is [129/79]. Heart rate is [94]. Respiration is [18] . Temperature is [98.3.]. HEENT: Head is atraumatic, neck is supple, there were no carotid bruits. CHEST: Lungs are clear to auscultation and percussion. CARDIAC: S1, S2 normal rate and rhythm. There is no murmur. ABDOMEN: Soft and nontender. Bowel sounds are present. EXTREMITIES: There is no pedal edema. Peripheral pulses are present. Neurological examination: Patient's neurological examination is unchanged from yesterday. - Labs CBC & Chem 7: 04/23/18 05:59 04/26/18 17:18 Labs: Abnormal Lab Results - Last 24 Hours (Table) 04/26/18 04/26/18 04/27/18 Range/Units 17:18 21:05 07:29 Glucose 120 H (74-99) mg/dL POC Glucose (mg/dL) 102 H 136 H (75-99) mg/dL 04/27/18 Range/Units 11:59 Glucose (74-99) mg/dL POC Glucose (mg/dL) 128 H (75-99) mg/dL Assessment and Plan (1) Headache Current Visit: Yes Status: Acute Code(s): R51 - HEADACHE SNOMED Code(s): 32826805 (2) New onset atrial fibrillation Current Visit: Yes Status: Acute Code(s): I48.91 - UNSPECIFIED ATRIAL FIBRILLATION SNOMED Code(s): 23455721 (3) Hypertension Current Visit: Yes Status: Acute Code(s): I10 - ESSENTIAL (PRIMARY) HYPERTENSION SNOMED Code(s): 22292928 (4) Chronic edema Current Visit: Yes Status: Acute Code(s): R60.9 - EDEMA, UNSPECIFIED SNOMED Code(s): 983849087 Plan: This patient is a pleasant 73-year-old [place] being evaluated for headache and new onset of atrial fibrillation. Patient was sent for MRI of the brain today for a further evaluation of bifrontal headache. His MRI results indicated no acute brain abnormality. Evidence of chronic small vessel ischemic change with sinus disease. There was possibility of subdural hygromas noted. These appear to be quite small in size. Overall the patient seems to be doing about the same today as yesterday. He is answering all questions appropriately. We reviewed the results of the MRI today with the patient in detail. We have increased his dose of Neurontin to 300 mg 3 times a day. This can be increased to 4 times a day if necessary over the next few days. We will continue close neurological follow-up with this patient during this admission. We will await further recommendations from cardiology. According to the patient they are recommending that he is stable for discharge from cardiac standpoint. He continues to have some lower extremity edema which is being managed conservatively. The patient is to continue on current dose of Neurontin for at least a week to see if this is more effective in controlling his headache pain. We will continue to follow his progress closely during this admission. His overall prognosis at this time remains very guarded.
[2018-04-27 17:36] LABS: Glucose,Whole Blood 154 mg/dL (75-99)
[2018-04-27] MEDS: SODIUM CHLORIDE 0.9% 1,000 ML IV SCH (17:42)
[2018-04-27] MEDS: ACETAMINOPHEN TAB 500 MG TAB PO PRN (17:55)
[2018-04-27 21:17] LABS: Glucose,Whole Blood 185 mg/dL (75-99)
[2018-04-27] MEDS: ATORVASTATIN 20 MG TAB PO SCH (22:21)
[2018-04-28] MEDS: CEPHALEXIN 500 MG CAP PO SCH ×3 (00:01→15:05)
[2018-04-28] MEDS: LEVOTHYROXINE 50 MCG TAB PO SCH (06:26)
[2018-04-28 07:18] LABS: Glucose,Whole Blood 120 mg/dL (75-99)
[2018-04-28] MEDS: metFORMIN 500 MG TAB PO SCH ×2 (09:23→18:00)
[2018-04-28] MEDS: ALLOPURINOL 300 MG TAB PO SCH (09:23)
[2018-04-28] MEDS: CARVEDILOL 6.25 MG TAB PO SCH ×2 (09:23→17:59)
[2018-04-28] MEDS: COLCHICINE 0.6 MG EACH PO SCH (09:23)
[2018-04-28] MEDS: GABAPENTIN 300 MG CAP PO SCH ×2 (09:23→15:05)
[2018-04-28] MEDS: CHOLECALCIFEROL 1,000 UNIT TAB PO SCH (09:23)
[2018-04-28] MEDS: LOSARTAN 25 MG TAB PO SCH (09:23)
[2018-04-28] MEDS: ASPIRIN 81 MG PO SCH (09:23)
[2018-04-28] MEDS: CYANOCOBALAMIN 500 MCG TAB PO SCH (09:23)
[2018-04-28] MEDS: DULoxetine HCL 60 MG CAPSULE.DR PO SCH (09:24)
[2018-04-28] MEDS: POTASSIUM CHLORIDE ER 20 MEQ TAB.ER PO SCH (09:24)
[2018-04-28] MEDS: PANTOPRAZOLE 40 MG TABLET PO SCH (09:24)
[2018-04-28] MEDS: FUROSEMIDE 80 MG TAB PO SCH (09:24)
[2018-04-28] MEDS: TAMSULOSIN 0.4 MG CAP.ER.24H PO SCH (09:24)
[2018-04-28] MEDS: APIXABAN 5 MG TAB PO SCH (09:24)
[2018-04-28 11:32] LABS: Glucose,Whole Blood 129 mg/dL (75-99)
[2018-04-28 12:43] LABS: Hemoglobin A1C 6.7 % (4.0-6.0)
[2018-04-28 14:33] VITALS: BP 115/58; PULSE 90; RESP 20; TEMP 96.2
[2018-04-28] MEDS: FUROSEMIDE 40 MG TAB PO SCH (15:05)
--- NOTE | 2018-04-28 17:37 | DS ---
DISCHARGE SUMMARY CHIEF COMPLAINT: Rapid heart beating. HISTORY OF PRESENT ILLNESS AND PHYSICAL EXAMINATION: The details of this man's history and physical can be found in the initial workup. LABORATORY STUDIES: While he was in the hospital he had laboratory studies, details of which can be found in the laboratory section of his chart. COURSE IN THE HOSPITAL: After admission he was placed on bedrest and started on intravenous fluids. He was placed on telemetry. His D-dimer was elevated and he had a CTA which demonstrated pulmonary emboli. Anticoagulation was started and he steadily improved. His left leg was treated symptomatically. He had difficulty with headache, and imaging studies were done and the brain was normal. Arrangements were made for him to go home, and it was learned at the last minute [facility] He will receive his followup there. He will be on: 1. Keflex 500 mg t.i.d. for 10 days. 2. Tamsulosin 0.4 once a day. 3. Apixaban 5 mg b.i.d. 4. Atorvastatin 20 mg at bedtime. 5. Carvedilol 6.25 mg b.i.d. 6. Losartan 25 mg once a day. 7. Aspirin 81 mg. 8. Duloxetine 60 mg daily. 9. Tylenol p.r.n. 10.Gabapentin 200 mg b.i.d. 11.KCl 20 mEq once a day. 12.Lasix 40 mg b.i.d. 13.Pantoprazole 40 mg b.i.d. 14.Levothyroxine 0.05 mg once a day. 15.Metformin 500 mg b.i.d. 16.Allopurinol 300 mg once a day. 17.Colchicine 0.6 once a day. 18.Vitamin D3 1000 units a day. 19.B12 2500 mcg a day. FINAL DIAGNOSES: 1. Atrial fibrillation with rapid ventricular response. 2. Pulmonary emboli. 3. Diabetes mellitus. 4. Chronic lymphedema and cellulitis of the left lower leg. OPERATIONS: None. CONSULTATIONS: None. He is improved. MMODL / IJN: [id number] /
--- NOTE | 2018-04-28 18:58 | PN ---
PROGRESS NOTE DATE OF SERVICE: 04/27/2018. CHIEF COMPLAINT: Atrial fibrillation and pulmonary emboli. HISTORY OF PRESENT ILLNESS: This gentleman is feeling better. His headache is subsiding. He has not had any shortness of breath or chest pain. PHYSICAL EXAM: Breath sounds are heard on both sides. Cardiac exam demonstrates atrial fibrillation. The abdomen is very protuberant. The left leg is the same. IMPRESSION: 1. Atrial fibrillation with shortness of breath and pulmonary emboli. 2. Headache. PLAN: Await results of his central nervous system studies and then he can probably be discharged. MMODL / IJN: [id number] /
--- NOTE | 2018-05-04 09:06 | CDI ---
Last Revision, July 2017 Documentation Clarification Form Date: 04/27/2018 1:36:00 PM From: Areli Weinberg RN, CCDS Admit Date: 04/22/2018 7:13:00 PM Patient Name: Lyle Quinonez Visit Number: [id number] Discharge Date: ATTENTION: The Clinical Documentation Specialists (CDI) and [facility] Coding Staff appreciate your assistance in clarifying documentation. Please respond to the clarification below the line at the bottom and electronically sign. The CDI & [facility] Coding staff will review the response and follow-up if needed. Please note: Queries are made part of the Legal Health Record. If you have any questions, please contact the author of this message via ITS. Bradly Hill MD Congestive heart failure is in your documentation on 04/23/18 History/Risk Factors: Hypertension, Hyperlipidemia, Gout, Diabetes mellitus, Chronic lover extremity edema, Obesity Clinical Indicators: Present with complaints heart was beating very fast. VS/Pulse OX: 132/63 68 17 97.5 97 % BNP: 833 EKG: Atrial fibrillation Echocardiogram Results: Right ventricle is severely enlarged, mild pulmonary hypertension, EF between 45-50 % Chest CT Angio : Dependent atelectasis. there is emphysematous change throughout the lungs. No large pulmonary emboli, There is no pleural or pericardial fluid. The heart is enlarged. Treatment: ECHO Lasix IV 04/23/18 Cardiology consult: New onset of paroxysmal atrial fibrillation. He has chronic left lower extremity edema will treat with IV Lasix (was on Lasix PO BID at home) In your professional opinion, can you please clarify the acuity and type of CHF if known? Or if the Congestive heart failure was ruled out Systolic Heart Failure: Acute Chronic Acute on Chronic Unable to Determine Other, please specify Please continue to document in your progress notes and discharge summary in order to capture severity of illness and risk of mortality. Include clinical findings that support your diagnosis. MTDD
--- NOTE | 2018-05-07 11:19 | MISC ---
MISCELLANOUS REPORT QUERY Question: In your professional opinion, can you clarify acuity and type. I did not know this patient before he came, so I would say acute on chronic. MMODL / IJN: [id number] /
== END 2018-04-28 18:19 | DRG 308 ==
LOC: EC 17:03 → 6SEL 19:13 → 4MS4W 04-26 20:46
PROVIDERS: ADMIT Family Medicine; ATTEND Family Medicine
DX: I48.0 Paroxysmal atrial fibrillation (principal); I26.99 Other pulmonary embolism without acute cor pulmonale; I50.23 Acute on chronic systolic (congestive) heart failure; L03.116 Cellulitis of left lower limb; Z68.41 Body mass index [BMI] 40.0-44.9, adult; E11.9 Type 2 diabetes mellitus without complications; E78.5 Hyperlipidemia, unspecified; F17.200 Nicotine dependence, unspecified, uncomplicated; I11.0 Hypertensive heart disease with heart failure; I25.2 Old myocardial infarction; I87.2 Venous insufficiency (chronic) (peripheral); I89.0 Lymphedema, not elsewhere classified; M10.9 Gout, unspecified; Z79.01 Long term (current) use of anticoagulants; Z79.4 Long term (current) use of insulin; Z79.82 Long term (current) use of aspirin; Z79.899 Other long term (current) drug therapy; E66.9 Obesity, unspecified
CPT/HCPCS: 70470; 70551; 71275; 80048; 83036; 83880; 84443; 85025; 85379; 85730; 93306; 95819; 99285

== ENCOUNTER 2018-06-01 15:24 | Inpatient (IN) | payer MEDICARE ==
[2018-06-02] MEDS ORDERED: DEXTROSE 5%-0.9% NACL 1,000 ML IV SCH (00:15)
[2018-06-02] MEDS: DOXYCYCLINE 100 MG in SODIUM CHLORIDE 0.9% 100 ML IVPB SCH ×2 (06:32→17:40)
[2018-06-02] MEDS: INSULIN ASPART 100 UNIT/ML 1 ML 10 ML VIAL SQ SCH ×4 (06:43→21:08)
[2018-06-02 06:45] LABS: Glucose,Whole Blood 127 mg/dL (75-99)
[2018-06-02] MEDS: LEVOTHYROXINE 50 MCG TAB PO SCH (06:51)
[2018-06-02] MEDS: CARVEDILOL 6.25 MG TAB PO SCH ×2 (06:51→17:40)
[2018-06-02] MEDS ORDERED: LOSARTAN 25 MG TAB PO SCH (09:00)
[2018-06-02] MEDS ORDERED: POTASSIUM CHLORIDE ER 20 MEQ TAB.ER PO SCH (09:00)
[2018-06-02] MEDS: ALLOPURINOL 300 MG TAB PO SCH (09:44)
[2018-06-02] MEDS: DULoxetine HCL 60 MG CAPSULE.DR PO SCH (09:53)
[2018-06-02] MEDS: TAMSULOSIN 0.4 MG CAP.ER.24H PO SCH (09:53)
[2018-06-02] MEDS: PANTOPRAZOLE 40 MG TABLET PO SCH ×2 (09:53→21:09)
[2018-06-02] MEDS: APIXABAN 5 MG TAB PO SCH ×2 (09:53→21:09)
[2018-06-02] MEDS: GABAPENTIN 100 MG CAP PO SCH ×2 (09:53→21:09)
[2018-06-02] MEDS: ASPIRIN 81 MG PO SCH (09:56)
[2018-06-02 10:14] LABS: Calcium 8.1 mg/dL (8.4-10.2); Potassium 4.5 mmol/L (3.5-5.1)
--- NOTE | 2018-06-02 10:29 | P.CRDCN ---
History of Present Illness Consult date: 06/02/18 Requesting physician: Jose David E Sheet Consult reason: atrial fibrillation Chief complaint: Left foot and leg pain History of present illness: This is a pleasant 73-year-old gentleman who follows with Dr. Toure in the office. He has a known history of diabetes, hypertension, hyperlipidemia , obesity, prior vascular surgery in the left leg with evidence of chronic edema. He was a transfer here from [facility]. Patient presented to [facility] with mainly complaints of pain in his left leg with associated significant increase in swelling in that leg. He states that he's had at least a 10 pound weight gain in the past one week. Patient does complain of mild shortness of breath but states that he is always somewhat short of breath with minimal exertion. Patient states that he also experienced a fall, denies any syncope, just states that he couldn't use his left foot. Patient also states that he recently had a left lower extremity venous Doppler study which was negative for any DVT. He has a chronic indwelling catheter which was recently placed because of urinary retention, there is some blood noted in his urine this morning. Patient does have a prior history of nicotine dependence and also has history of hypothyroidism, history of aortic aneurysm repair, aortobifemoral surgery and nephrectomy. Laboratory data performed at [facility] was reviewed, sodium 137, potassium 4.5, BUN 44, creatinine 2.9. BNP level 380, white blood cell count 8.8, hemoglobin 9.5, platelet count 180. EKG shows atrial fibrillation with a rapid ventricular response, heart rate 127. According to the patient, he has been told to have an irregular heartbeat and was on Eliquis for anticoagulation at home. Blood pressure 134/60 with a heart rate of 100 this morning, 93% on 4 L of oxygen. Sodium this morning 142, potassium 4.5, BUN 46, creatinine 3.0, troponin 0.020. Patient's creatinine on April 26 of this year was 0.8. At the time of my examination this morning, patient feels well, no complaints, still having some mild discomfort in his left leg. Past Medical History Past Medical History: Atrial Fibrillation, Heart Failure, Diabetes Mellitus, Hyperlipidemia, Hypertension, Myocardial Infarction ([place]), Pneumonia, Thyroid Disorder Additional Past Medical History / Comment(s): Patient states "he has 1 kidney, kidney removed in 1987, in [facility]". Patient states "he see's Dr. Braswell for pin-hole in heart" Last Myocardial Infarction Date:: 1973 History of Any Multi-Drug Resistant Organisms: None Reported Past Surgical History: Coronary Bypass/CABG, Ear Surgery, Hernia Repair Additional Past Surgical History / Comment(s): stents, abdominal surgery. Patient states "he had aneurysms x2, as well a leg stent" Past Anesthesia/Blood Transfusion Reactions: No Reported Reaction Past Psychological History: Depression Smoking Status: Former smoker Past Alcohol Use History: None Reported Past Drug Use History: None Reported - Past Family History Mother History Unknown: Yes Father History Unknown: Yes Medications and Allergies Home Medications Medication Instructions Recorded Confirmed Type Allopurinol [Zyloprim] 300 mg PO DAILY 04/22/18 06/01/18 History Aspirin EC [Ecotrin Low Dose] 81 mg PO DAILY 04/22/18 06/01/18 History Atorvastatin [Lipitor] 20 mg PO HS 04/22/18 06/01/18 History Carvedilol [Coreg] 6.25 mg PO BID 04/22/18 06/01/18 History Cholecalciferol [Vitamin D3] 1,000 unit PO DAILY 04/22/18 06/01/18 History Colchicine [Colcrys] 0.6 mg PO DIRECTED PRN 04/22/18 06/01/18 History Cyanocobalamin (Vitamin B-12) 2,500 mcg PO DAILY 04/22/18 06/01/18 History [Vitamin B12] DULoxetine HCL [Cymbalta] 60 mg PO DAILY 04/22/18 06/01/18 History Furosemide [Lasix] 40 mg PO BID 04/22/18 06/01/18 History Gabapentin [Neurontin] 200 mg PO BID 04/22/18 06/01/18 History Levothyroxine Sodium [Synthroid] 50 mcg PO DAILY 04/22/18 06/01/18 History Losartan Potassium [Cozaar] 25 mg PO DAILY 04/22/18 06/01/18 History Pantoprazole [Protonix] 40 mg PO BID 04/22/18 06/01/18 History Potassium Chloride ER [K-Dur 20] 20 meq PO BID 04/22/18 06/01/18 History Tamsulosin [Flomax] 0.4 mg PO DAILY 04/22/18 06/01/18 History metFORMIN HCL [Glucophage] 500 mg PO BID 04/22/18 06/01/18 History Apixaban [Eliquis] 5 mg PO BID #60 tab 04/28/18 06/01/18 Rx Sulfamethox-Tmp 800-160Mg [Bactrim 1 tab PO BID 06/01/18 06/01/18 History DS 800-160 mg] Allergies Allergy/AdvReac Type Severity Reaction Status Date / Time No Known Allergies Allergy Verified 06/01/18 22:57 Physical Exam Vitals: Vital Signs Temp Pulse Resp BP Pulse Ox 06/02/18 09:38 97.2 F L 100 20 134/65 93 L 06/02/18 05:00 144 H 06/02/18 04:00 98.4 F 72 20 132/69 94 L 06/02/18 00:00 98.7 F 79 22 114/59 95 06/01/18 22:34 98.7 F 79 20 114/59 95 Intake and Output 06/01/18 06/02/18 06/02/18 22:59 06:59 14:59 Intake Total 240 0 Output Total 1250 Balance 240 -1250 0 Intake: Oral 240 0 Output: Urine 1250 Other: Voiding Method Indwelling Catheter Indwelling Catheter Weight 146.5 kg 146.5 kg PHYSICAL EXAMINATION: GENERAL: 73-year-old gentleman in no acute distress at the time of my examination HEENT: Head is atraumatic, normocephalic. Pupils equal, round. Sclera anicteric. Conjunctiva are clear. Mucous membranes of the mouth are moist. Neck is supple. There is no elevated jugular venous pressure. No carotid bruit is heard. HEART EXAMINATION: Heart S1-S2 irregularly irregular CHEST EXAMINATION: Lungs are clear diminished air entry to bilateral bases. ABDOMEN: Soft, obese, nontender. Bowel sounds are heard. No organomegaly noted. EXTREMITIES: 1+ peripheral pulses with evidence of 2-3+ peripheral edema in the left lower extremity, 1+ in the right lower extremity . NEUROLOGIC patient is awake, alert and oriented X3. . Results 06/02/18 06:35 Cardiac Enzymes 06/02/18 Range/Units 00:34 Troponin I 0.020 (0.000-0.034) ng/mL Comprehensive Metabolic Panel 06/02/18 Range/Units 06:35 Sodium 142 (137-145) mmol/L Potassium 4.5 (3.5-5.1) mmol/L Chloride 109 H (98-107) mmol/L Carbon Dioxide 24 (22-30) mmol/L BUN 46 H (9-20) mg/dL Creatinine 3.00 H (0.66-1.25) mg/dL Glucose 101 H (74-99) mg/dL Calcium 8.1 L (8.4-10.2) mg/dL Current Medications Generic Name Dose Route Start Last Admin Trade Name Freelmo PRN Reason Stop Dose Admin Allopurinol 200 mg 06/02/18 09:00 06/02/18 09:44 Zyloprim PO 200 mg DAILY SMITH Administration Apixaban 5 mg 06/02/18 09:00 06/02/18 09:53 Eliquis PO 5 mg BID SMITH Administration Aspirin 81 mg 06/02/18 09:00 06/02/18 09:56 Aspirin PO 81 mg DAILY SMITH Administration Atorvastatin Calcium 20 mg 06/02/18 21:00 Lipitor PO HS SMITH Carvedilol 6.25 mg 06/02/18 07:30 06/02/18 06:51 Coreg PO 6.25 mg BID-W/MEALS SMITH Administration Duloxetine HCl 60 mg 06/02/18 09:00 06/02/18 09:53 Cymbalta PO 60 mg DAILY SMITH Administration Gabapentin 100 mg 06/02/18 09:00 06/02/18 09:53 Neurontin PO 100 mg BID SMITH Administration Ceftriaxone Sodium 1,000 mg/ 50 mls @ 100 mls/hr 06/02/18 09:00 06/02/18 09: 54 Sodium Chloride IVPB 100 mls/hr Q24HR SMITH Administration Dextrose/Sodium Chloride 1,000 mls @ 50 mls/hr 06/02/18 00:15 06/02/18 00:32 Dextrose 5%-Ns Iv Soln IV 06/02/18 12:15 50 mls/hr .Q20H SMITH Administration Doxycycline Hyclate 100 mg/ 100 mls @ 66.67 mls/hr 06/02/18 06:00 06/02/18 06 :32 Sodium Chloride IVPB 66.67 mls/hr Q12H SMITH Administration Insulin Aspart 0 unit 06/02/18 07:30 06/02/18 06:43 Novolog SQ Not Given ACHS SMITH Protocol Levothyroxine Sodium 50 mcg 06/02/18 06:30 06/02/18 06:51 Synthroid PO 50 mcg DAILY@0630 SMITH Administration Losartan Potassium 25 mg 06/02/18 09:00 06/02/18 09:53 Cozaar PO 25 mg DAILY SMITH Administration Pantoprazole Sodium 40 mg 06/02/18 09:00 06/02/18 09:53 Protonix PO 40 mg BID SMITH Administration Potassium Chloride 20 meq 06/02/18 09:00 06/02/18 09:53 K-Dur 20 PO 20 meq BID SMITH Administration Tamsulosin HCl 0.4 mg 06/02/18 09:00 06/02/18 09:53 Flomax PO 0.4 mg DAILY SMITH Administration Intake and Output 06/01/18 06/02/18 06/02/18 22:59 06:59 14:59 Intake Total 240 0 Output Total 1250 Balance 240 -1250 0 Intake: Oral 240 0 Output: Urine 1250 Other: Voiding Method Indwelling Catheter Indwelling Catheter Weight 146.5 kg 146.5 kg 06/02/18 06:35 EKG Interpretations (text) EKG showed atrial fibrillation with rapid ventricular response Assessment and Plan Plan: Assessment and plan #1 atrial fibrillation with rapid ventricular response, paroxysmal, on Eliquis for anticoagulation #2 acute renal failure #3 diabetes #4 hypertension #5 hyperlipidemia #6 chronic left lower extremity edema, appears to be worse according to the patient, associated pain. #7 obesity #8 prior history of smoking #9 hypothyroidism #10 prior nephrectomy #11 aortic aneurysm repair #12 bilateral fem-pop Plan We will continue Eliquis 5 mg twice a day along with a baby aspirin, Lipitor, Coreg, we will discontinue the Cozaar because of the acute renal failure and continue to monitor renal function. Obtain echocardiogram with Doppler study as well as free T4 and TSH level. We will also obtain Dr. Toure's office note. Further recommendations to follow. DNP note has been reviewed, I agree with a documented findings and plan of care. Patient was seen and examined.
[2018-06-02 10:47] LABS: Basophils % (A) 0 %; Eosinophils # (A) 0.2 k/uL (0-0.7); Eosinophils % (A) 3 %; HCT 27.2 % (39.0-53.0); Hypochromasia Slight; Lymphocytes # (A) 0.9 k/uL (1.0-4.8); Lymphocytes % (A) 12 %; MCH 32.6 pg (25.0-35.0); MCHC 32.3 g/dL (31.0-37.0); Macrocytosis Slight; Mean Platelet Volume 8.9; Monocytes # (A) 0.7 k/uL (0-1.0); Monocytes % (A) 9 %; Neutrophils # (A) 5.4 k/uL (1.3-7.7); Neutrophils % (A) 74 %; Platelet Count 167 k/uL (150-450); RDW 15.3 % (11.5-15.5); WBC 7.3 k/uL (3.8-10.6)
[2018-06-02 10:48] LABS: HGB 8.8 gm/dL (13.0-17.5)
--- NOTE | 2018-06-02 11:45 | P.GSCN ---
History of Present Illness Consult date: 06/02/18 Reason for Consult: Urine retention History of present illness: The patient is an unhealthy 73-year-old gentleman in the hospital because of multiple medical issues including left leg swelling atrial fibrillation with rapid ventricular response acute on chronic renal failure. Apparently the patient is in urine retention and epinephrine asked to see the patient. The voluntary urinary retention when the catheters placed is unknown to me. He has an indwelling catheter present that has slight blood tinge to it. Upon interviewing the patient he does states that he has had problems urinating over the last 2-3 months. He has seen a doctor for [facility] and [place]. He thinks it was a urologist. He states that he wasn't placed on any medication already see that he has been on tamsulosin. Apparently he has been wearing an external indwelling catheter for incontinence and frequent nighttime urination. He denies previous blood in the urine he denies previous urologic procedures. Review of Systems - Constitutional Reports chronic pain, Reports fatigue, Reports lethargy, Reports weight gain - Respiratory Reports dyspnea - Genitourinary Reports as per HPI - Musculoskeletal Reports as per HPI Past Medical History Past Medical History: Atrial Fibrillation, Heart Failure, Diabetes Mellitus, Hyperlipidemia, Hypertension, Myocardial Infarction ([place]), Pneumonia, Thyroid Disorder Additional Past Medical History / Comment(s): Patient states "he has 1 kidney, kidney removed in 1987, in [facility]". Patient states "he see's Dr. Braswell for pin-hole in heart" Last Myocardial Infarction Date:: 1973 History of Any Multi-Drug Resistant Organisms: None Reported Past Surgical History: Coronary Bypass/CABG, Ear Surgery, Hernia Repair Additional Past Surgical History / Comment(s): stents, abdominal surgery. Patient states "he had aneurysms x2, as well a leg stent" Past Anesthesia/Blood Transfusion Reactions: No Reported Reaction Past Psychological History: Depression Smoking Status: Former smoker Past Alcohol Use History: None Reported Past Drug Use History: None Reported - Past Family History Mother History Unknown: Yes Father History Unknown: Yes Medications and Allergies Home Medications Medication Instructions Recorded Confirmed Type Allopurinol [Zyloprim] 300 mg PO DAILY 04/22/18 06/01/18 History Aspirin EC [Ecotrin Low Dose] 81 mg PO DAILY 04/22/18 06/01/18 History Atorvastatin [Lipitor] 20 mg PO HS 04/22/18 06/01/18 History Carvedilol [Coreg] 6.25 mg PO BID 04/22/18 06/01/18 History Cholecalciferol [Vitamin D3] 1,000 unit PO DAILY 04/22/18 06/01/18 History Colchicine [Colcrys] 0.6 mg PO DIRECTED PRN 04/22/18 06/01/18 History Cyanocobalamin (Vitamin B-12) 2,500 mcg PO DAILY 04/22/18 06/01/18 History [Vitamin B12] DULoxetine HCL [Cymbalta] 60 mg PO DAILY 04/22/18 06/01/18 History Furosemide [Lasix] 40 mg PO BID 04/22/18 06/01/18 History Gabapentin [Neurontin] 200 mg PO BID 04/22/18 06/01/18 History Levothyroxine Sodium [Synthroid] 50 mcg PO DAILY 04/22/18 06/01/18 History Losartan Potassium [Cozaar] 25 mg PO DAILY 04/22/18 06/01/18 History Pantoprazole [Protonix] 40 mg PO BID 04/22/18 06/01/18 History Potassium Chloride ER [K-Dur 20] 20 meq PO BID 04/22/18 06/01/18 History Tamsulosin [Flomax] 0.4 mg PO DAILY 04/22/18 06/01/18 History metFORMIN HCL [Glucophage] 500 mg PO BID 04/22/18 06/01/18 History Apixaban [Eliquis] 5 mg PO BID #60 tab 04/28/18 06/01/18 Rx Sulfamethox-Tmp 800-160Mg [Bactrim 1 tab PO BID 06/01/18 06/01/18 History DS 800-160 mg] Allergies Allergy/AdvReac Type Severity Reaction Status Date / Time No Known Allergies Allergy Verified 06/01/18 22:57 Surgical - Exam Vital Signs Temp Pulse Resp BP Pulse Ox 98.7 F 79 20 114/59 95 06/01/18 22:34 06/01/18 22:34 06/01/18 22:34 06/01/18 22:34 06/01/18 22:34 - General well developed, well nourished, obese - Eyes PERRL - ENT no hearing loss - Neck no masses, trachea midline - Respiratory normal expansion - Cardiovascular Rhythm: irregularly irregular - Abdomen Abdomen: soft, non tender Hernia: incisional - Genitourinary The patient has an indwelling catheter. He is uncircumcised. The amount of catheter emanating from the penis is diminished suggesting an enlarged prostate. The testes are descended. The prostate is 30-40 g soft and benign. - Integumentary no rash, no growths - Neurologic normal coordination, normal sensation - Musculoskeletal Marked left lower extremity swelling normal posture - Psychiatric oriented to time, oriented to person, oriented to place, speech is normal, memory intact Results - Labs 06/02/18 06:35 06/02/18 06:35 Abnormal Lab Results - Last 24 Hours (Table) 06/02/18 06/02/18 06/02/18 Range/Units 06:35 06:35 06:42 RBC 2.70 L (4.30-5.90) m/uL Hgb 8.8 L D (13.0-17.5) gm/dL Hct 27.2 L (39.0-53.0) % MCV 101.0 H (80.0-100.0) fL Lymphocytes # 0.9 L (1.0-4.8) k/uL Chloride 109 H (98-107) mmol/L BUN 46 H (9-20) mg/dL Creatinine 3.00 H (0.66-1.25) mg/dL Glucose 101 H (74-99) mg/dL POC Glucose (mg/dL) 127 H (75-99) mg/dL Calcium 8.1 L (8.4-10.2) mg/dL Diabetes panel 06/02/18 Range/Units 06:35 Sodium 142 (137-145) mmol/L Potassium 4.5 (3.5-5.1) mmol/L Chloride 109 H (98-107) mmol/L Carbon Dioxide 24 (22-30) mmol/L BUN 46 H (9-20) mg/dL Creatinine 3.00 H (0.66-1.25) mg/dL Glucose 101 H (74-99) mg/dL Calcium 8.1 L (8.4-10.2) mg/dL Calcium panel 06/02/18 Range/Units 06:35 Calcium 8.1 L (8.4-10.2) mg/dL Pituitary panel 06/02/18 Range/Units 06:35 Sodium 142 (137-145) mmol/L Potassium 4.5 (3.5-5.1) mmol/L Chloride 109 H (98-107) mmol/L Carbon Dioxide 24 (22-30) mmol/L BUN 46 H (9-20) mg/dL Creatinine 3.00 H (0.66-1.25) mg/dL Glucose 101 H (74-99) mg/dL Calcium 8.1 L (8.4-10.2) mg/dL Adrenal panel 06/02/18 Range/Units 06:35 Sodium 142 (137-145) mmol/L Potassium 4.5 (3.5-5.1) mmol/L Chloride 109 H (98-107) mmol/L Carbon Dioxide 24 (22-30) mmol/L BUN 46 H (9-20) mg/dL Creatinine 3.00 H (0.66-1.25) mg/dL Glucose 101 H (74-99) mg/dL Calcium 8.1 L (8.4-10.2) mg/dL Assessment and Plan Assessment: Impression: Urinary retention and acute on chronic. Chronic renal insufficiency acute on chronic. Multiple medical problems. Marked left lower extremity swelling. BPH with obstruction Recommendations: The patient is on tamsulosin. I do not know the exact time as to when this was begun because his initial H&P does not identify this however in looking through the chart it does state that he was been on this since April. The patient is not even aware being on this. I would leave indwelling catheter until he is ambulatory and feeling better. At that point time and remove the catheter and give him a voiding trial. If he still unable to urinate he may need lower tract evaluation. Whether I do not or the "urologist" in [place] does this is up to the patient. Time with Patient: Greater than 30
[2018-06-02 12:02] LABS: Glucose,Whole Blood 198 mg/dL (75-99)
--- NOTE | 2018-06-02 13:04 | P.NPCON ---
History of Present Illness - Reason for Consult acute renal failure - History of Present Illness Reason for consultation: Acute kidney injury History of present illness: Patient is a 73-year-old male seen in renal consultation for acute kidney injury. Patient states he has solitary right kidney as his left kidney was removed when he had his aneurysm repaired in 1987. His baseline creatinine from last month is near 1. Patient presented to [facility] and at that time his creatinine was 2.9. He was having difficulty with urination and a Melchor catheter was placed. Creatinine today is 3.0. He has been evaluated by urology. Admits to good oral intake. No vomiting or diarrhea. Denies chest pain or shortness of breath. Denies use of NSAIDs. He did receive IV fluids overnight. Diuretics are held. I also notice Bactrim and his home medications but not clear as to how long he's been on it. He denies any family history of renal disease. He does have history of diabetes. He was taking metformin which is currently held. He admits to swelling which is chronic in nature in his left lower extremity. No significant edema in his right lower extremity. Ultrasound revealed no evidence of DVT. Vital signs are stable. General: The patient appeared well nourished and normally developed. HEENT: Head exam is unremarkable. Neck is without jugular venous distension. LUNGS: Lungs are clear to auscultation and percussion. Breath sounds decreased. HEART: Rate and Rhythm are regular. First and second heart sounds normal. No murmurs, rubs or gallops. ABDOMEN: Abdominal exam reveals normal bowel sounds. Non-tender and non- distended. No evidence of peritonitis. EXTREMITITES: Chronic changes and 1+ edema noted in the left lower extremity. No edema in the right lower extremity. Past Medical History Past Medical History: Atrial Fibrillation, Heart Failure, Diabetes Mellitus, Hyperlipidemia, Hypertension, Myocardial Infarction ([place]), Pneumonia, Thyroid Disorder Additional Past Medical History / Comment(s): Patient states "he has 1 kidney, kidney removed in 1987, in [facility]". Patient states "he see's Dr. Braswell for pin-hole in heart" Last Myocardial Infarction Date:: 1973 History of Any Multi-Drug Resistant Organisms: None Reported Past Surgical History: Coronary Bypass/CABG, Ear Surgery, Hernia Repair Additional Past Surgical History / Comment(s): stents, abdominal surgery. Patient states "he had aneurysms x2, as well a leg stent" Past Anesthesia/Blood Transfusion Reactions: No Reported Reaction Past Psychological History: Depression Smoking Status: Former smoker Past Alcohol Use History: None Reported Past Drug Use History: None Reported - Past Family History Mother History Unknown: Yes Father History Unknown: Yes Medications and Allergies Home Medications Medication Instructions Recorded Confirmed Type Allopurinol [Zyloprim] 300 mg PO DAILY 04/22/18 06/01/18 History Aspirin EC [Ecotrin Low Dose] 81 mg PO DAILY 04/22/18 06/01/18 History Atorvastatin [Lipitor] 20 mg PO HS 04/22/18 06/01/18 History Carvedilol [Coreg] 6.25 mg PO BID 04/22/18 06/01/18 History Cholecalciferol [Vitamin D3] 1,000 unit PO DAILY 04/22/18 06/01/18 History Colchicine [Colcrys] 0.6 mg PO DIRECTED PRN 04/22/18 06/01/18 History Cyanocobalamin (Vitamin B-12) 2,500 mcg PO DAILY 04/22/18 06/01/18 History [Vitamin B12] DULoxetine HCL [Cymbalta] 60 mg PO DAILY 04/22/18 06/01/18 History Furosemide [Lasix] 40 mg PO BID 04/22/18 06/01/18 History Gabapentin [Neurontin] 200 mg PO BID 04/22/18 06/01/18 History Levothyroxine Sodium [Synthroid] 50 mcg PO DAILY 04/22/18 06/01/18 History Losartan Potassium [Cozaar] 25 mg PO DAILY 04/22/18 06/01/18 History Pantoprazole [Protonix] 40 mg PO BID 04/22/18 06/01/18 History Potassium Chloride ER [K-Dur 20] 20 meq PO BID 04/22/18 06/01/18 History Tamsulosin [Flomax] 0.4 mg PO DAILY 04/22/18 06/01/18 History metFORMIN HCL [Glucophage] 500 mg PO BID 04/22/18 06/01/18 History Apixaban [Eliquis] 5 mg PO BID #60 tab 04/28/18 06/01/18 Rx Sulfamethox-Tmp 800-160Mg [Bactrim 1 tab PO BID 06/01/18 06/01/18 History DS 800-160 mg] Allergies Allergy/AdvReac Type Severity Reaction Status Date / Time No Known Allergies Allergy Verified 06/01/18 22:57 Physical Exam Vitals: Vital Signs Temp Pulse Resp BP Pulse Ox 06/02/18 12:36 98.7 F 71 20 129/72 98 06/02/18 09:38 97.2 F L 100 20 134/65 93 L 06/02/18 05:00 144 H 06/02/18 04:00 98.4 F 72 20 132/69 94 L 06/02/18 00:00 98.7 F 79 22 114/59 95 06/01/18 22:34 98.7 F 79 20 114/59 95 Intake and Output 06/01/18 06/02/18 06/02/18 22:59 06:59 14:59 Intake Total 240 500 Output Total 1250 950 Balance 240 -1250 -450 Intake: IV 500 Dextrose 5%-0.9% NaCl 1, 500 000 ml @ 50 mls/hr IV . Q20H [facility] Rx#:[id number] Oral 240 0 Output: Urine 1250 950 Other: Voiding Method Indwelling Catheter Indwelling Catheter Weight 146.5 kg 146.5 kg Results - Lab Results Most recent lab results Calcium 8.1 mg/dL (8.4-10.2) L 06/02/18 06:35 06/02/18 06:35 06/02/18 06:35 Assessment and Plan Plan: Assessment: 1. Acute kidney injury secondary to ATN secondary to hemodynamic instability and cardiology following. hypovolemia from diuretics. There is also component of urinary retention. Additionally he was on Bactrim which is now held. Bactrim will impair creatinine secretion and will falsely elevated creatinine levels. Creatinine 3.0 today. 2. 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 Baseline creatinine near 1. 3. Urinary retention status post Melchor catheter placement. Urology following. 4. Anemia. Rule out iron deficiency. 5. A. fib with RVR. Rate controlled. 6. Diabetes mellitus. 7. History of nephrectomy in 1987. Patient is unclear as to which side. Plan: Maintain Melchor catheter. Maintain Flomax. Hold off on IV fluids as well as diuretics for now. Encouraged oral intake. Bactrim and Lasix held. I will also hold losartan for now. Check urinalysis. Check renal ultrasound. Check iron studies. Repeat electrolytes in the morning. Thank you for the consultation. I will continue to follow the patient with you during his hospital stay.
--- NOTE | 2018-06-02 13:37 | P.HPIM ---
History of Present Illness This is a pleasant 73 years old male with past medical history of atrial fibrillation, congestive heart failure, diabetes mellitus, hypertension, hyperlipidemia, coronary artery disease, lumbosacral radiculopathy at L5. Morbid obesity. History of gout. Recurrent falls. history of pneumonia and hypothyroidism. This is status post CABG. He presents to [facility] because he fell as per documentation. At baseline he walks using a walker. Patient denies loss of consciousness. No headache. As per documentation he gained about 10 pounds of weight. He has significant swelling of his lower extremity recently. Patient also presents with urinary retention and hematuria. He has also A. fib with RVR, as per EKG his heart rate was 127 Patient denies to me any headache. No chest pain. Mildly dyspneic/tachypneic. His confident with no specific phlegm. He does not use oxygen at home. Vital signs at [facility] were stable. Labs at [facility] were as follow: INR 1.5 function tests within normal limits. CPK 102. WBC 8.8. Hemoglobin 9.5. Platelets 1H. BNP 380. Glucose 85. Creatinine high at 2.9, compared to baseline around 1. Potassium 4.5. Venous Doppler showing no evidence of DVT . Chest x-ray suspicious for right upper lobe pneumonia as per radiologist's report Review of Systems CONSTITUTIONAL: No fever, no malaise, no fatigue. HEENT: No recent visual problems or hearing problems. Denied any sore throat. CARDIOVASCULAR: No orthopnea, PND, no palpitations, no syncope. PULMONARY: No shortness of breath, no cough, no hemoptysis. GASTROINTESTINAL: No diarrhea, no nausea, no vomiting, no abdominal pain. Normoactive bowel sounds. NEUROLOGICAL: No headaches, no weakness, no numbness. HEMATOLOGICAL: Denies any bleeding or petechiae. GENITOURINARY: Denies any burning micturition, frequency, or urgency. MUSCULOSKELETAL/RHEUMATOLOGICAL: Denies any joint pain, swelling, or any muscle pain. ENDOCRINE: Denies any polyuria or polydipsia. Past Medical History Past Medical History: Atrial Fibrillation, Heart Failure, Diabetes Mellitus, Hyperlipidemia, Hypertension, Myocardial Infarction ([place]), Pneumonia, Thyroid Disorder Additional Past Medical History / Comment(s): Patient states "he has 1 kidney, kidney removed in 1987, in [place]". Patient states "he see's Dr. Braswell for pin-hole in heart" Last Myocardial Infarction Date:: 1973 History of Any Multi-Drug Resistant Organisms: None Reported Past Surgical History: Coronary Bypass/CABG, Ear Surgery, Hernia Repair Additional Past Surgical History / Comment(s): stents, abdominal surgery. Patient states "he had aneurysms x2, as well a leg stent" Past Anesthesia/Blood Transfusion Reactions: No Reported Reaction Past Psychological History: Depression Smoking Status: Former smoker Past Alcohol Use History: None Reported Past Drug Use History: None Reported - Past Family History Mother History Unknown: Yes Father History Unknown: Yes Medications and Allergies Home Medications Medication Instructions Recorded Confirmed Type RX: Allopurinol [Zyloprim] 300 mg PO DAILY 04/22/18 06/01/18 History RX: Aspirin EC [Ecotrin Low Dose] 81 mg PO DAILY 04/22/18 06/01/18 History RX: Atorvastatin [Lipitor] 20 mg PO HS 04/22/18 06/01/18 History RX: Carvedilol [Coreg] 6.25 mg PO BID 04/22/18 06/01/18 History RX: Cholecalciferol [Vitamin D3] 1,000 unit PO DAILY 04/22/18 06/01/18 History RX: Colchicine [Colcrys] 0.6 mg PO DIRECTED PRN 04/22/18 06/01/18 History RX: Cyanocobalamin (Vitamin B-12) 2,500 mcg PO DAILY 04/22/18 06/01/18 History [Vitamin B12] RX: DULoxetine HCL [Cymbalta] 60 mg PO DAILY 04/22/18 06/01/18 History RX: Furosemide [Lasix] 40 mg PO BID 04/22/18 06/01/18 History RX: Gabapentin [Neurontin] 200 mg PO BID 04/22/18 06/01/18 History RX: Levothyroxine Sodium 50 mcg PO DAILY 04/22/18 06/01/18 History [Synthroid] RX: Losartan Potassium [Cozaar] 25 mg PO DAILY 04/22/18 06/01/18 History RX: Pantoprazole [Protonix] 40 mg PO BID 04/22/18 06/01/18 History RX: Potassium Chloride ER [K-Dur 20 meq PO BID 04/22/18 06/01/18 History 20] RX: Tamsulosin [Flomax] 0.4 mg PO DAILY 04/22/18 06/01/18 History RX: metFORMIN HCL [Glucophage] 500 mg PO BID 04/22/18 06/01/18 History RX: Apixaban [Eliquis] 5 mg PO BID #60 tab 04/28/18 06/01/18 Rx Sulfamethox-Tmp 800-160Mg [Bactrim 1 tab PO BID 06/01/18 06/01/18 History DS 800-160 mg] Allergies Allergy/AdvReac Type Severity Reaction Status Date / Time No Known Allergies Allergy Verified 06/01/18 22:57 Physical Exam Vitals: Vital Signs Temp Pulse Resp BP Pulse Ox 06/02/18 12:36 98.7 F 71 20 129/72 98 06/02/18 09:38 97.2 F L 100 20 134/65 93 L 06/02/18 05:00 144 H 06/02/18 04:00 98.4 F 72 20 132/69 94 L 06/02/18 00:00 98.7 F 79 22 114/59 95 06/01/18 22:34 98.7 F 79 20 114/59 95 Intake and Output 06/01/18 06/02/18 06/02/18 22:59 06:59 14:59 Intake Total 240 500 Output Total 1250 950 Balance 240 -1250 -450 Intake: IV 500 Dextrose 5%-0.9% NaCl 1, 500 000 ml @ 50 mls/hr IV . Q20H [facility] Rx#:[id number] Oral 240 0 Output: Urine 1250 950 Other: Voiding Method Indwelling Catheter Indwelling Catheter Weight 146.5 kg 146.5 kg GENERAL: The patient is alert and oriented x3, not in any acute distress. Well developed, well nourished. HEENT: Pupils are round and equally reacting to light. EOMI. No scleral icterus. No conjunctival pallor. Normocephalic, atraumatic. No pharyngeal erythema. No thyromegaly. CARDIOVASCULAR: S1 and S2 present. No murmurs, rubs, or gallops. PULMONARY: Chest is clear to auscultation, no wheezing or crackles. ABDOMEN: Soft, nontender, nondistended, normoactive bowel sounds. No palpable organomegaly. -Urogenital: Patient has Melchor catheter in place with red urine in the bag. MUSCULOSKELETAL: No joint swelling or deformity. -EXTREMITIES: No cyanosis, clubbing, bilateral pedal edema. NEUROLOGICAL: Gross neurological examination did not reveal any focal deficits. SKIN: No rashes. Results CBC & Chem 7: 06/02/18 06:35 06/02/18 06:35 Labs: Abnormal Lab Results - Last 24 Hours (Table) 06/02/18 06/02/18 06/02/18 Range/Units 06:35 06:35 06:42 RBC 2.70 L (4.30-5.90) m/uL Hgb 8.8 L D (13.0-17.5) gm/dL Hct 27.2 L (39.0-53.0) % MCV 101.0 H (80.0-100.0) fL Lymphocytes # 0.9 L (1.0-4.8) k/uL Chloride 109 H (98-107) mmol/L BUN 46 H (9-20) mg/dL Creatinine 3.00 H (0.66-1.25) mg/dL Glucose 101 H (74-99) mg/dL POC Glucose (mg/dL) 127 H (75-99) mg/dL Calcium 8.1 L (8.4-10.2) mg/dL 06/02/18 Range/Units 12:00 RBC (4.30-5.90) m/uL Hgb (13.0-17.5) gm/dL Hct (39.0-53.0) % MCV (80.0-100.0) fL Lymphocytes # (1.0-4.8) k/uL Chloride (98-107) mmol/L BUN (9-20) mg/dL Creatinine (0.66-1.25) mg/dL Glucose (74-99) mg/dL POC Glucose (mg/dL) 198 H (75-99) mg/dL Calcium (8.4-10.2) mg/dL Thrombosis Risk Factor Assmnt - Choose All That Apply Any of the Below Risk Factors Present?: Yes Each Factor Represents 1 point: Medical pt on bed rest, Obesity (BMI >25), Swollen legs (current) Other Risk Factors: Yes Each Risk Factor Represents 2 Points: Age 61-74 years Other congenital or acquired thrombophilia - If yes, enter type in comment: No Thrombosis Risk Factor Assessment Total Risk Factor Score: 5 Thrombosis Risk Factor Assessment Level: High Risk Assessment and Plan Assessment: Acute renal failure Acute urinary retention with hematuria Community-acquired pneumonia A. fib with RVR. 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 Labs and medication reviews. Continue with antibiotic as per infectious disease. Senior Qc Technician evaluation is appreciated and they on Protonix for fluid management. Hold Lasix and losartan as per the recommendation. Cardiology evaluation is appreciated. patient has indwelling Melchor catheter currently. DC metformin and put patient on sliding scale. Continue with the same medication. Continue with symptomatic treatment. Resume home medication. Monitor lytes and vitals. DVT and GI prophylaxis. Further recommendation is based on the clinical progress of the patient DVT prophylaxis: No heparin in view of hematuria GI prophylaxis. Pepcid PT/OT: Pending, especially in the view of recurrent falls we will ask for physical therapy evaluation. Prognosis is guarded
[2018-06-02 14:04] LABS: Hemoglobin A1C 6.7 % (4.0-6.0)
--- NOTE | 2018-06-02 15:21 | US ---
EXAMINATION TYPE: US kidneys/renal and bladder DATE OF EXAM: 06/02/2018 COMPARISON: NONE CLINICAL HISTORY: nazario. right nephrectomy, gross hematuria, morbidly obese EXAM MEASUREMENTS: Right Kidney: Surgically absent Left Kidney: 17.6 x 6.6 x 9.8 cm Right Kidney: Surgically absent Left Kidney: enlarged, multiple cysts seen, largest at superior pole = 7.2cm, also moderate hydroneph rosis Bladder: bell cath Scanning of right renal bed shows no suspicious recurrent mass. Suboptimal evaluation of bladder due to Bell catheter. Scanning of left kidney shows 7.2 cm fairly simple appearing exophytic cyst upper pole level. Smaller cysts are present. There is moderate left-sided hydronephrosis. IMPRESSION: Moderate left-sided hydronephrosis, etiology uncertain. Further workup advised.
[2018-06-02 15:39] LABS: Appearance,Urine Cloudy (Clear); Bacteria,Urine Rare /hpf; Bilirubin,Urine Negative (Negative); Blood,Urine Large (Negative); Color,Urine Red; Glucose,Urine (UA) Negative (Negative); Ketones,Urine Trace (Negative); Leukocyte Esterase,Urine Large (Negative); Nitrite,Urine Negative (Negative); Protein,Urine 2+ (Negative); RBC,Urine >182 /hpf (0-5); Specific Gravity,Urine 1.012 (1.001-1.035); Urobilinogen,Urine <2.0 mg/dL (<2.0); WBC,Urine >182 /hpf (0-5)
[2018-06-02 17:06] LABS: Glucose,Whole Blood 136 mg/dL (75-99)
[2018-06-02] MEDS: ATORVASTATIN 20 MG TAB PO SCH (21:09)
[2018-06-02 21:14] LABS: Iron Saturation 6.25 (15.00-50.00)
[2018-06-02 21:17] LABS: Glucose,Whole Blood 125 mg/dL (75-99)
[2018-06-03 03:57] LABS: Basophils % (A) 0 %; Eosinophils # (A) 0.3 k/uL (0-0.7); Eosinophils % (A) 4 %; HCT 27.4 % (39.0-53.0); HGB 8.6 gm/dL (13.0-17.5); Hypochromasia Slight; Lymphocytes % (A) 14 %; MCH 31.5 pg (25.0-35.0); MCHC 31.6 g/dL (31.0-37.0); MCV 99.9 fL (80.0-100.0); Macrocytosis Slight; Mean Platelet Volume 9.3; Monocytes # (A) 0.5 k/uL (0-1.0); Monocytes % (A) 8 %; Neutrophils # (A) 4.8 k/uL (1.3-7.7); Neutrophils % (A) 72 %; Platelet Count 170 k/uL (150-450); RBC 2.74 m/uL (4.30-5.90); RDW 15.3 % (11.5-15.5); WBC 6.8 k/uL (3.8-10.6)
--- NOTE | 2018-06-03 04:11 | XR ---
EXAMINATION TYPE: XR chest 1V portable DATE OF EXAM: 06/03/2018 COMPARISON: NONE HISTORY: Short of breath TECHNIQUE: Single frontal view of the chest is obtained. FINDINGS: Lungs are clear of consolidation. There is some coarsening of the lung markings. There is no heart failure. Heart appears enlarged. IMPRESSION: There is probably cardiomegaly. No heart failure.
[2018-06-03 04:21] LABS: Calcium 8.6 mg/dL (8.4-10.2); Potassium 4.4 mmol/L (3.5-5.1)
[2018-06-03] MEDS ORDERED: FUROSEMIDE 10 MG/ML 10 ML VIAL IV STA (04:26)
[2018-06-03] MEDS ORDERED: FUROSEMIDE 10 MG/ML 4 ML VIAL IV STA (04:31)
[2018-06-03 04:37] LABS: INR 1.2 (<1.2); Partial Thromboplastin Time 33.4 sec (22.0-30.0); Prothrombin Time 11.4 sec (9.0-12.0)
[2018-06-03] MEDS ORDERED: OXYMETAZOLINE 0.05% NASL SPRAY 1 SPRAY BOTTLE NASAL STA (04:37)
--- NOTE | 2018-06-03 05:17 | CONS ---
CONSULTATION DATE OF SERVICE: 06/02/2018 REASON FOR CONSULTATION: Pneumonia. HISTORY OF PRESENT ILLNESS: The patient is a 73-year-old male who apparently presented to the [facility] with chief complaints of increasing shortness of breath and cough. The patient's symptoms apparently has been going on for about 2 to 3 days prior to presenting to the hospital. Patient denies having any URI symptoms. No nausea, no vomiting. No difficulty swallowing. His breathing has been getting increasing shortness of breath with minimal exertion. He also has some cough with bringing up some white to yellow sputum with no hemoptysis. No significant chest pain. No nausea or vomiting. No abdominal pain or any diarrhea. With these symptoms, the patient has been evaluated at [facility] where the patient diagnosed with atrial fibrillation with RVR, heart rate was 127. The patient also had a chest x-ray that was suspicious for right upper lobe pneumonia. Subsequently the patient has been transferred to the [facility] to be evaluated both by Cardiology and Nephrology services. I was asked to see the patient for further recommendation regarding antibiotic therapy. Since the patient has been admitted to the hospital, he has been afebrile. His white count is normal. Urine has been positive with large leukocyte esterase and more than 182 WBCs and the is elevated at 3, currently being treated with Rocephin and doxycycline. REVIEW OF SYSTEMS: CONSTITUTIONAL: Positive for weakness. Denies having any fever. EYES: No complaint. ENT: No complaint. RESPIRATORY: As per HPI. CARDIOVASCULAR: As per HPI. GENITOURINARY: As per HPI. GASTROINTESTINAL: No complaint. MUSCULOSKELETAL: No complaint. INTEGUMENTARY: No complaint. PSYCHOLOGICAL: No complaint. ENDOCRINE: No complaint. NEUROLOGIC: No complaint. PAST MEDICAL HISTORY: Hypertension, diabetes mellitus, heart failure, atrial fibrillation, hypothyroidism, pneumonia, [place], hypertension. PAST SURGICAL HISTORY: Nephrectomy, surgery by Dr. Braswell, coronary artery bypass grafting, and hernia repair. SOCIAL HISTORY: Remote history of smoking. No drinking or drug use. FAMILY HISTORY: No pertinent findings noticed. ALLERGIES: No known drug allergies. MEDICATIONS: Medications currently include the patient is on Zyloprim, Eliquis, aspirin, Lipitor, Coreg, Rocephin 1 gram daily, doxycycline, Cymbalta, Neurontin, NovoLog, Synthroid, Protonix, Flomax. PHYSICAL EXAMINATION: On examination, blood pressure 134/63 with a pulse of 75, temperature 97.8. He is 90% on 4 L nasal cannula. General description is an elderly male up in the bed in no distress. No tachypnea or accessory muscle of respiration use. HEENT examination shows slight pallor. No scleral icterus. Oral mucous membrane is dry. No pharyngeal erythema or thrush. NECK: Trachea central. No thyromegaly. LUNGS: Unlabored breathing with decreased breath sounds. No significant wheeze or crackle. HEART: S1, S2. Regular rate and rhythm. ABDOMEN: Soft, no tenderness. No guarding or rigidity. EXTREMITIES: Trace edema of the feet bilaterally. SKIN EXAMINATION: No rash or mass palpable. NEUROLOGICAL: Patient is awake, alert, oriented x3. Mood and affect normal. LABS: Hemoglobin 8.8, white count 7.3, BUN 46, creatinine 3.0. Electrolytes have been normal. Urine has been positive with large leukocyte esterase with more than 182 WBCs. DIAGNOSTIC IMPRESSION AND PLAN: 1. Patient presenting to the hospital initially with increasing shortness of breath. He also has a complaint of some white to yellow sputum with a chest x-ray obtained at the outside facility did show a right upper lobe pneumonia, possibly community- acquired pneumonia. Clinical suspicion for underlying gram-negative or gram- positive pathogen. 2. Patient with a positive UA questionably to his renal insufficiency or a component of urinary tract infection. PLAN: 1. We will try to obtain sputum for Gram stain culture and sensitivity. 2. The patient will be treated with Rocephin 1 gram along with doxycycline. 3. We will follow up on his clinical condition as well as cultures to further adjust medication if needed. Thank you for this consultation. Will follow the patient along with you. MMODL / IJN: [id number] /
[2018-06-03] MEDS: DOXYCYCLINE 100 MG in SODIUM CHLORIDE 0.9% 100 ML IVPB SCH ×2 (06:06→17:49)
[2018-06-03] MEDS: LEVOTHYROXINE 50 MCG TAB PO SCH (06:06)
[2018-06-03] MEDS: CARVEDILOL 6.25 MG TAB PO SCH ×2 (06:06→17:51)
[2018-06-03 06:31] LABS: HCT 28.7 % (39.0-53.0); HGB 9.2 gm/dL (13.0-17.5); Hypochromasia Slight; MCH 32.1 pg (25.0-35.0); MCHC 31.9 g/dL (31.0-37.0); MCV 100.5 fL (80.0-100.0); Macrocytosis Slight; Mean Platelet Volume 8.2; Platelet Count 196 k/uL (150-450); RBC 2.86 m/uL (4.30-5.90); RDW 15.3 % (11.5-15.5); WBC 8.4 k/uL (3.8-10.6)
[2018-06-03 06:33] LABS: Glucose,Whole Blood 122 mg/dL (75-99)
[2018-06-03] MEDS: INSULIN ASPART 100 UNIT/ML 1 ML 10 ML VIAL SQ SCH ×4 (06:33→20:56)
--- NOTE | 2018-06-03 07:24 | CONS ---
CONSULTATION REASON FOR CONSULTATION: Epistaxis. HISTORY: This is a 73-year-old white male with atrial fibrillation, CHF, diabetes, hypertension, renal failure, coronary artery disease, who was admitted due to renal failure and pneumonia as he had shortness of breath also. He early this morning started developing epistaxis on the left side. This has been persistent during the night. This has been chiefly left-sided. Apparently about 3 months ago he did have epistaxis on the left side, which required a packing which was left for few days and he has done well since then. He has no chronic nasal symptoms. PAST MEDICAL HISTORY: Past medical history is atrial fibrillation, heart failure, diabetes, hyperlipidemia, hypertension, myocardial infarction, pneumonia, thyroid disorder. PAST SURGICAL HISTORY: Nephrectomy, coronary artery surgery, ear surgery, herniorrhaphy, abdominal surgery, aneurysm surgery. SOCIAL HISTORY: Did smoke, does not now. FAMILY HISTORY: Noncontributory. MEDICATIONS AT HOME: Allopurinol, aspirin, Lipitor, Coreg, colchicine, Neurontin, Synthroid, losartan, Protonix, potassium, Flomax, Glucophage, Eliquis, Bactrim. ALLERGIES: No known drug allergies. REVIEW OF SYSTEMS: Noncontributory other than as above. PHYSICAL EXAM: The patient has been afebrile. Vital signs overall have been stable, although he has been on nasal cannula oxygen. GENERAL: Well-developed, obese, white male in no acute distress. He does have active bleed from left-side of nose, even though there is some gauze and a nasal clamp in place. HEENT: Head normocephalic and atraumatic. Ears bilateral canals clear. Tympanic membranes unremarkable and mobile. Nose shows posterior blood on the right, which was evacuated. The bleeding appears coming from the left and going back posteriorly. Left nasal cavity shows septum deviated to the left. There was active bleeding as well as a large clot, which was evacuated. The bleeding comes from more posterior on the left with a suspicious vessel about midway back on the septum which was cauterized with silver nitrate. However, there was still some oozing posteriorly. Therefore, it was elected to place an 8 cm Rhino Rocket with a balloon inflated. This controlled the bleeding anteriorly and posteriorly. Oropharynx shows no active bleeding after packing was placed. NECK: Supple without adenopathy or tenderness. ASSESSMENT: 1. Posterior epistaxis on the left. 2. Anticoagulated status. PLAN: The patient does have balloon pack in place. This will usually be left in place for approximately 3 days and then removed. He is on prophylactic antibiotics already. The patient is anticoagulated and not be able to be changed. However, this is certainly a risk factor for ongoing bleeding and would try to minimize anticoagulation as much as possible. If there are questions or concerns, please free to contact me. The nasal cannula oxygen will be changed to facemask humidified also in the meantime. MMODL / IJN: [id number] /
--- NOTE | 2018-06-03 07:30 | PCN ---
PROCEDURE NOTE PREOPERATIVE DIAGNOSIS: Left posterior epistaxis. POSTOPERATIVE DIAGNOSIS: Left posterior epistaxis. PROCEDURE: Nasal cautery mid nasal septum as well as placement of a posterior nasal pack on the left. ANESTHESIA: None. COMPLICATIONS: None. PROCEDURE: The patient was in his hospital bed and cautery was performed on the mid nasal septum on the left, but with some still ongoing oozing. An 8 cm Rhino Rocket pack was placed with the balloon inflated and this appeared to control the bleeding. No anterior or posterior bleeding noted then. ASSESSMENT: Left posterior epistaxis. PLAN: See progress note for plan. MMODL / IJN: [id number] /
[2018-06-03] MEDS: ASPIRIN 81 MG PO SCH (08:32)
[2018-06-03] MEDS: TAMSULOSIN 0.4 MG CAP.ER.24H PO SCH (08:32)
[2018-06-03] MEDS: DULoxetine HCL 60 MG CAPSULE.DR PO SCH (08:33)
[2018-06-03] MEDS: GABAPENTIN 100 MG CAP PO SCH ×2 (08:33→20:56)
[2018-06-03] MEDS: PANTOPRAZOLE 40 MG TABLET PO SCH ×2 (08:33→20:56)
[2018-06-03] MEDS: ALLOPURINOL 300 MG TAB PO SCH (08:33)
[2018-06-03] MEDS: APIXABAN 5 MG TAB PO SCH ×2 (08:33→08:35)
[2018-06-03 11:48] LABS: Glucose,Whole Blood 145 mg/dL (75-99)
--- NOTE | 2018-06-03 12:03 | P.PN ---
Subjective Patient is seen in follow-up for acute kidney injury on chronic kidney disease. Creatinine was 3 on admission and is down to 2.67 today. Patient had an episode of nosebleed this morning which was packed by ENT. 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 He is nonoliguric. Patient is a Melchor catheter in place. Denies chest pain. Patient did get dyspneic this morning and received 1 dose of IV Lasix. Currently improved. Vital signs are stable. General: The patient appeared well nourished and normally developed. HEENT: Head exam is unremarkable. Neck is without jugular venous distension. LUNGS: Lungs are clear to auscultation and percussion. Breath sounds decreased. HEART: Rate and Rhythm are regular. First and second heart sounds normal. No murmurs, rubs or gallops. ABDOMEN: Abdominal exam reveals normal bowel sounds. Non-tender and non- distended. No evidence of peritonitis. EXTREMITITES: 1+ edema in the right lower extremity. Chronic skin changes noted in the left lower extremity. Objective - Vital Signs Vital signs: Vital Signs Temp 98.1 F 06/03/18 09:34 Pulse 78 06/03/18 09:34 Resp 18 06/03/18 09:34 BP 164/81 06/03/18 09:34 Pulse Ox 93 L 06/03/18 09:34 Intake & Output 06/02/18 06/03/18 06/03/18 18:59 06:59 18:59 Intake Total 740 180 Output Total 950 1000 1400 Balance -210 -1000 -1220 Intake: IV 500 Dextrose 5%-0.9% NaCl 1, 500 000 ml @ 50 mls/hr IV . Q20H [facility] Rx#:[id number] Oral 240 180 Output: Urine 950 1000 1400 Uretheral (Melchor) 1400 Other: Voiding Method Indwelling Catheter Indwelling Catheter Indwelling Catheter # Bowel Movements 1 3 - Labs CBC & Chem 7: 06/03/18 06:08 06/03/18 03:45 Labs: Abnormal Lab Results - Last 24 Hours (Table) 06/02/18 06/02/18 06/02/18 Range/Units 00:34 06:35 12:00 RBC (4.30-5.90) m/uL Hgb (13.0-17.5) gm/dL Hct (39.0-53.0) % MCV (80.0-100.0) fL INR (<1.2) APTT (22.0-30.0) sec Chloride (98-107) mmol/L BUN (9-20) mg/dL Creatinine (0.66-1.25) mg/dL Glucose (74-99) mg/dL POC Glucose (mg/dL) 198 H (75-99) mg/dL Hemoglobin A1c 6.7 H (4.0-6.0) % Iron 13 L (65-175) ug/dL TIBC 208 L (228-460) ug/dL Iron Saturation 6.25 L (15.00-50.00) Ferritin 475.8 H (22.0-322.0) ng/mL Urine Protein (Negative) Urine Ketones (Negative) Urine Blood (Negative) Ur Leukocyte Esterase (Negative) Urine RBC (0-5) /hpf Urine WBC (0-5) /hpf Urine WBC Clumps (None) /hpf Urine Bacteria (None) /hpf 06/02/18 06/02/18 06/02/18 Range/Units 14:50 17:05 21:07 RBC (4.30-5.90) m/uL Hgb (13.0-17.5) gm/dL Hct (39.0-53.0) % MCV (80.0-100.0) fL INR (<1.2) APTT (22.0-30.0) sec Chloride (98-107) mmol/L BUN (9-20) mg/dL Creatinine (0.66-1.25) mg/dL Glucose (74-99) mg/dL POC Glucose (mg/dL) 136 H 125 H (75-99) mg/dL Hemoglobin A1c (4.0-6.0) % Iron (65-175) ug/dL TIBC (228-460) ug/dL Iron Saturation (15.00-50.00) Ferritin (22.0-322.0) ng/mL Urine Protein 2+ H (Negative) Urine Ketones Trace H (Negative) Urine Blood Large H (Negative) Ur Leukocyte Esterase Large H (Negative) Urine RBC >182 H (0-5) /hpf Urine WBC >182 H (0-5) /hpf Urine WBC Clumps Many H (None) /hpf Urine Bacteria Rare H (None) /hpf 10/18/18 10/18/18 10/18/18 Range/Units 03:45 03:45 03:45 RBC 2.74 L (4.30-5.90) m/uL Hgb 8.6 L (13.0-17.5) gm/dL Hct 27.4 L (39.0-53.0) % MCV (80.0-100.0) fL INR 1.2 H (<1.2) APTT 33.4 H (22.0-30.0) sec Chloride 112 H (98-107) mmol/L BUN 54 H (9-20) mg/dL Creatinine 2.67 H (0.66-1.25) mg/dL Glucose 124 H (74-99) mg/dL POC Glucose (mg/dL) (75-99) mg/dL Hemoglobin A1c (4.0-6.0) % Iron (65-175) ug/dL TIBC (228-460) ug/dL Iron Saturation (15.00-50.00) Ferritin (22.0-322.0) ng/mL Urine Protein (Negative) Urine Ketones (Negative) Urine Blood (Negative) Ur Leukocyte Esterase (Negative) Urine RBC (0-5) /hpf Urine WBC (0-5) /hpf Urine WBC Clumps (None) /hpf Urine Bacteria (None) /hpf 06/03/18 06/03/18 06/03/18 Range/Units 06:08 06:32 11:45 RBC 2.86 L (4.30-5.90) m/uL Hgb 9.2 L (13.0-17.5) gm/dL Hct 28.7 L (39.0-53.0) % MCV 100.5 H (80.0-100.0) fL INR (<1.2) APTT (22.0-30.0) sec Chloride (98-107) mmol/L BUN (9-20) mg/dL Creatinine (0.66-1.25) mg/dL Glucose (74-99) mg/dL POC Glucose (mg/dL) 122 H 145 H (75-99) mg/dL Hemoglobin A1c (4.0-6.0) % Iron (65-175) ug/dL TIBC (228-460) ug/dL Iron Saturation (15.00-50.00) Ferritin (22.0-322.0) ng/mL Urine Protein (Negative) Urine Ketones (Negative) Urine Blood (Negative) Ur Leukocyte Esterase (Negative) Urine RBC (0-5) /hpf Urine WBC (0-5) /hpf Urine WBC Clumps (None) /hpf Urine Bacteria (None) /hpf Microbiology - Last 24 Hours (Table) 06/02/18 17:30 Gram Stain - Preliminary Lung Aspirate - Left Tissue Culture - Preliminary Assessment and Plan Plan: Assessment: 1. Acute kidney injury secondary to ATN secondary to hemodynamic instability and hypovolemia from diuretics. There is also component of urinary retention. Additionally he was on Bactrim which is now held. Bactrim will impair creatinine secretion and will falsely elevate creatinine levels. Creatinine 3. On admission and is 2.67 today.0 2. Chronic kidney disease stage II secondary to solitary left kidney. Baseline creatinine near 1. 3. Urinary retention status post Melchor catheter placement. Urology following. 4. Anemia. iron deficiency noted. 5. A. fib with RVR. Rate controlled. 6. Diabetes mellitus. 7. History of right-sided nephrectomy in 1987. 8. Enlarged left kidney with multiple cysts. This is suggestive of polycystic kidney disease. Patient denies family history of renal disease. 9. Pyuria. Check urine culture. 10. Pneumonia maintained on antibiotics. Infectious disease following. 11. Hydronephrosis in the left kidney. Urology following. 12. Epistaxis status post nasal packing this morning. Eliquis held. Plan: Maintain Melchor catheter. Maintain Flomax. Status post IV Lasix this morning - no significant vascular congestion noted on chest x-ray from this morning. Encouraged oral intake. Continue to hold losartan for now. Ferrlecit 125 mg IV daily for 3 days. First dose today. Add hydralazine 50 mg 3 times daily. Hold if systolic blood pressure less than 120. Repeat electrolytes in the morning.
--- NOTE | 2018-06-03 12:14 | CDI ---
Last Revision, July 2017 Documentation Clarification Form Date: 06/03/2018 11:59:07 AM From: Tari Roque RN, CCDS Admit Date: 06/01/2018 10:06:00 PM Patient Name: Lyle Quinonez Visit Number: [id number] ATTENTION: The Clinical Documentation Specialists (CDI) and [facility] Coding Staff appreciate your assistance in clarifying documentation. Please respond to the clarification below the line at the bottom and electronically sign. The CDI & [facility] Coding staff will review the response and follow-up if needed. Please note: Queries are made part of the Legal Health Record. If you have any questions, please contact the author of this message via ITS. Jose David Hewitt MD History/Risk factors: Per documentation in the H&P and progress notes, this patient was admitted with an indwelling Bell catheter and a UTI. Clinical Indicators: 06/02 Cardiology Consult: "He has a chronic indwelling catheter which was recently placed because of urinary retention, there is some blood noted in his urine this morning." Urinalysis: +2 protein, trace keytones, lg blood, lg leukocyte esterase, >182 RBC, > 182 WBC, many WBC clumps, rare bacteria Urine culture: not sent Lab results: WBC 7.3/8.4, Neutrophils 5.4/4.8, BUN 46/54, Creatinine 3/2.67 Treatment: IVPB Rocephin 1 gm IVPB Q 24 hrs IV Doxycyline 100 mg IVPB Q 12 hrs In your professional opinion, can you please clarify the etiology of the UTI, if known? UTI r/t chronic IDC UTI not related to catheter Other condition, please specify If an infective organism is present, please specify cause and effect relationship if applicable. Please continue to document in your progress notes and discharge summary in order to capture severity of illness and risk of mortality. Include clinical findings that support your diagnosis. unrelated because bell placed in [facility] for hematuria MTDD
[2018-06-03] MEDS: hydrALAZINE HCL 50 MG TAB PO SCH ×3 (12:23→20:56)
--- NOTE | 2018-06-03 15:50 | P.PN ---
Subjective Progress Note Date: 06/03/18 This is a pleasant 73-year-old gentleman who follows with Dr. Toure in the office. He has a known history of diabetes, hypertension, hyperlipidemia , obesity, prior vascular surgery in the left leg with evidence of chronic edema. He was a transfer here from [facility]. Patient presented to [facility] with mainly complaints of pain in his left leg with associated significant increase in swelling in that leg. He states that he's had at least a 10 pound weight gain in the past one week. Patient does complain of mild shortness of breath but states that he is always somewhat short of breath with minimal exertion. Patient states that he also experienced a fall, denies any syncope, just states that he couldn't use his left foot. Patient also states that he recently had a left lower extremity venous Doppler study which was negative for any DVT. He has a chronic indwelling catheter which was recently placed because of urinary retention, there is some blood noted in his urine this morning. Patient does have a prior history of nicotine dependence and also has history of hypothyroidism, history of aortic aneurysm repair, aortobifemoral surgery and nephrectomy. Laboratory data performed at [facility] was reviewed, sodium 137, potassium 4.5, BUN 44, creatinine 2.9. BNP level 380, white blood cell count 8.8, hemoglobin 9.5, platelet count 180. EKG shows atrial fibrillation with a rapid ventricular response, heart rate 127. According to the patient, he has been told to have an irregular heartbeat and was on Eliquis for anticoagulation at home. Blood pressure 134/60 with a heart rate of 100 this morning, 93% on 4 L of oxygen. Sodium this morning 142, potassium 4.5, BUN 46, creatinine 3.0, troponin 0.020. Patient's creatinine on April 26 of this year was 0.8. At the time of my examination this morning, patient feels well, no complaints, still having some mild discomfort in his left leg. 06/03/2018 Patient was seen and examined this morning, he had a few episodes of epistaxis passing large clots, he was also having significant hematuria passing clots as well,he has been in and out of atrial fibrillation today through most of the day. Currently in normal sinus rhythm.blood pressure 138/60 with a heart rate in the 80s, 94% on room air.White blood cell count 8.4, hemoglobin 9.2, platelet count 196.patient had been on Eliquis, we will discontinue it at this time. Repeat an H&H this afternoon . Objective - Vital Signs Vital signs: Vital Signs Temp 98.1 F 06/03/18 09:34 Pulse 87 06/03/18 12:00 Resp 18 06/03/18 12:00 BP 139/60 06/03/18 12:00 Pulse Ox 94 L 06/03/18 12:00 Intake & Output 06/02/18 06/03/18 06/03/18 18:59 06:59 18:59 Intake Total 740 460 Output Total 950 1000 2300 Balance -210 -1000 -1840 Intake: IV 500 Dextrose 5%-0.9% NaCl 1, 500 000 ml @ 50 mls/hr IV . Q20H [facility] Rx#:[id number] Intake, IV Titration 100 Amount cefTRIAXone 1,000 mg In 100 Sodium Chloride 0.9% 50 ml @ 100 mls/hr IVPB Q24HR [facility] Rx#:[id number] Oral 240 360 Output: Urine 950 1000 2300 Uretheral (Melchor) 1400 Other: Voiding Method Indwelling Catheter Indwelling Catheter Indwelling Catheter # Bowel Movements 1 1 - Exam PHYSICAL EXAMINATION: GENERAL: 73-year-old gentleman in no acute distress at the time of my examination HEENT: Head is atraumatic, normocephalic. Pupils equal, round. Sclera anicteric. Conjunctiva are clear. Mucous membranes of the mouth are moist. Neck is supple. There is no elevated jugular venous pressure. No carotid bruit is heard. HEART EXAMINATION: Heart S1-S2 normal CHEST EXAMINATION: Lungs are clear diminished air entry to bilateral bases. ABDOMEN: Soft, obese, nontender. Bowel sounds are heard. No organomegaly noted. EXTREMITIES: 1+ peripheral pulses with evidence of 2-3+ peripheral edema in the left lower extremity, 1+ in the right lower extremity . NEUROLOGIC patient is awake, alert and oriented X3. - Labs CBC & Chem 7: 06/03/18 06:08 06/03/18 03:45 Labs: Abnormal Lab Results - Last 24 Hours (Table) 06/02/18 06/02/18 06/02/18 Range/Units 06:35 14:50 17:05 RBC (4.30-5.90) m/uL Hgb (13.0-17.5) gm/dL Hct (39.0-53.0) % MCV (80.0-100.0) fL INR (<1.2) APTT (22.0-30.0) sec Chloride (98-107) mmol/L BUN (9-20) mg/dL Creatinine (0.66-1.25) mg/dL Glucose (74-99) mg/dL POC Glucose (mg/dL) 136 H (75-99) mg/dL Iron 13 L (65-175) ug/dL TIBC 208 L (228-460) ug/dL Iron Saturation 6.25 L (15.00-50.00) Ferritin 475.8 H (22.0-322.0) ng/mL Urine Protein 2+ H (Negative) Urine Ketones Trace H (Negative) Urine Blood Large H (Negative) Ur Leukocyte Esterase Large H (Negative) Urine RBC >182 H (0-5) /hpf Urine WBC >182 H (0-5) /hpf Urine WBC Clumps Many H (None) /hpf Urine Bacteria Rare H (None) /hpf 06/02/18 06/03/18 06/03/18 Range/Units 21:07 03:45 03:45 RBC 2.74 L (4.30-5.90) m/uL Hgb 8.6 L (13.0-17.5) gm/dL Hct 27.4 L (39.0-53.0) % MCV (80.0-100.0) fL INR (<1.2) APTT (22.0-30.0) sec Chloride 112 H (98-107) mmol/L BUN 54 H (9-20) mg/dL Creatinine 2.67 H (0.66-1.25) mg/dL Glucose 124 H (74-99) mg/dL POC Glucose (mg/dL) 125 H (75-99) mg/dL Iron (65-175) ug/dL TIBC (228-460) ug/dL Iron Saturation (15.00-50.00) Ferritin (22.0-322.0) ng/mL Urine Protein (Negative) Urine Ketones (Negative) Urine Blood (Negative) Ur Leukocyte Esterase (Negative) Urine RBC (0-5) /hpf Urine WBC (0-5) /hpf Urine WBC Clumps (None) /hpf Urine Bacteria (None) /hpf 06/03/18 06/03/18 06/03/18 Range/Units 03:45 06:08 06:32 RBC 2.86 L (4.30-5.90) m/uL Hgb 9.2 L (13.0-17.5) gm/dL Hct 28.7 L (39.0-53.0) % MCV 100.5 H (80.0-100.0) fL INR 1.2 H (<1.2) APTT 33.4 H (22.0-30.0) sec Chloride (98-107) mmol/L BUN (9-20) mg/dL Creatinine (0.66-1.25) mg/dL Glucose (74-99) mg/dL POC Glucose (mg/dL) 122 H (75-99) mg/dL Iron (65-175) ug/dL TIBC (228-460) ug/dL Iron Saturation (15.00-50.00) Ferritin (22.0-322.0) ng/mL Urine Protein (Negative) Urine Ketones (Negative) Urine Blood (Negative) Ur Leukocyte Esterase (Negative) Urine RBC (0-5) /hpf Urine WBC (0-5) /hpf Urine WBC Clumps (None) /hpf Urine Bacteria (None) /hpf 06/03/18 Range/Units 11:45 RBC (4.30-5.90) m/uL Hgb (13.0-17.5) gm/dL Hct (39.0-53.0) % MCV (80.0-100.0) fL INR (<1.2) APTT (22.0-30.0) sec Chloride (98-107) mmol/L BUN (9-20) mg/dL Creatinine (0.66-1.25) mg/dL Glucose (74-99) mg/dL POC Glucose (mg/dL) 145 H (75-99) mg/dL Iron (65-175) ug/dL TIBC (228-460) ug/dL Iron Saturation (15.00-50.00) Ferritin (22.0-322.0) ng/mL Urine Protein (Negative) Urine Ketones (Negative) Urine Blood (Negative) Ur Leukocyte Esterase (Negative) Urine RBC (0-5) /hpf Urine WBC (0-5) /hpf Urine WBC Clumps (None) /hpf Urine Bacteria (None) /hpf Microbiology - Last 24 Hours (Table) 06/02/18 17:30 Gram Stain - Preliminary Lung Aspirate - Left Tissue Culture - Preliminary Assessment and Plan Plan: Assessment and plan #1 atrial fibrillation with rapid ventricular response, paroxysmal, on Eliquis for anticoagulation #2 acute renal failure #3 diabetes #4 hypertension #5 hyperlipidemia #6 chronic left lower extremity edema, appears to be worse according to the patient, associated pain. #7 obesity #8 prior history of smoking #9 hypothyroidism #10 prior nephrectomy #11 aortic aneurysm repair #12 bilateral fem-pop Plan We'll discontinue the patient's Eliquis today, check an H&H this afternoon and again tomorrow. Patient has had his nares are packed, we will continue to watch for any further bleeding. DNP note has been reviewed, I agree with a documented findings and plan of care. Patient was seen and examined.
[2018-06-03 16:31] LABS: HCT 27.7 % (39.0-53.0); HGB 9.2 gm/dL (13.0-17.5); Hypochromasia Moderate; MCH 33.7 pg (25.0-35.0); MCV 102.1 fL (80.0-100.0); Macrocytosis Slight; Platelet Count 210 k/uL (150-450); RBC 2.71 m/uL (4.30-5.90); RDW 15.6 % (11.5-15.5); WBC 8.2 k/uL (3.8-10.6)
[2018-06-03 17:22] LABS: Glucose,Whole Blood 140 mg/dL (75-99)
[2018-06-03 20:45] LABS: Glucose,Whole Blood 140 mg/dL (75-99)
[2018-06-03] MEDS: ATORVASTATIN 20 MG TAB PO SCH (20:56)
--- NOTE | 2018-06-03 22:07 | P.PN ---
Subjective This is a pleasant 73 years old male with past medical history of atrial fibrillation, congestive heart failure, diabetes mellitus, hypertension, hyperlipidemia, coronary artery disease, lumbosacral radiculopathy at L5. Morbid obesity. History of gout. Recurrent falls. history of pneumonia and hypothyroidism. This is status post CABG. He presents to [facility] because he fell as per documentation. At baseline he walks using a walker. Patient denies loss of consciousness. No headache. As per documentation he gained about 10 pounds of weight. He has significant swelling of his lower extremity recently. Patient also presents with urinary retention and hematuria. He has also A. fib with RVR, as per EKG his heart rate was 127 Patient denies to me any headache. No chest pain. Mildly dyspneic/tachypneic. His confident with no specific phlegm. He does not use oxygen at home. Vital signs at [facility] were stable. Labs at [facility] were as follow: INR 1.5 function tests within normal limits. CPK 102. WBC 8.8. Hemoglobin 9.5. Platelets 1H. BNP 380. Glucose 85. Creatinine high at 2.9, compared to baseline around 1. Potassium 4.5. Venous Doppler showing no evidence of DVT . Chest x-ray suspicious for right upper lobe pneumonia as per radiologist's report 06/03/2018 pt is lying in chain , no in distress. still has hematuria from his bell , he has epistaxis from his left nostril that needed ENT to pack it. cardiology follow up is appreciated. pt remains on blood thinner, however it was discontinued today as per cardiology recommendation , his Hb is stable at 9.2. no leukocytosis , sugar is controlled. CXR: no CHF. cr is trending down 3.0 to 2.6. got lasix today by nephrology recommendation, Physical therapy evaluated pt since he came with fall, and they recommended home with no therapy. Objective - Vital Signs Vital signs: Vital Signs Temp 97.9 F 06/03/18 19:40 Pulse 99 06/03/18 20:12 Resp 18 06/03/18 20:12 BP 116/68 06/03/18 19:40 Pulse Ox 95 06/03/18 16:21 Intake & Output 06/03/18 06/03/18 06/04/18 06:59 18:59 06:59 Intake Total 460 180 Output Total 1000 2300 Balance -1000 -1840 180 Intake: Intake, IV Titration 100 Amount cefTRIAXone 1,000 mg In 100 Sodium Chloride 0.9% 50 ml @ 100 mls/hr IVPB Q24HR [facility] Rx#:[id number] Oral 360 180 Output: Urine 1000 2300 Uretheral (Bell) 1400 Other: Voiding Method Indwelling Catheter Indwelling Catheter Indwelling Catheter # Bowel Movements 1 - Exam GENERAL: The patient is alert and oriented x3, not in any acute distress. Well developed, well nourished. HEENT: Pupils are round and equally reacting to light. EOMI. No scleral icterus. No conjunctival pallor. Normocephalic, atraumatic. No pharyngeal erythema. No thyromegaly. CARDIOVASCULAR: S1 and S2 present. No murmurs, rubs, or gallops. PULMONARY: Chest is clear to auscultation, no wheezing or crackles. ABDOMEN: Soft, nontender, nondistended, normoactive bowel sounds. No palpable organomegaly. -Urogenital: Patient has Bell catheter in place with red urine in the bag. MUSCULOSKELETAL: No joint swelling or deformity. -EXTREMITIES: No cyanosis, clubbing, bilateral pedal edema. NEUROLOGICAL: Gross neurological examination did not reveal any focal deficits. SKIN: No rashes. - Labs CBC & Chem 7: 06/03/18 15:51 06/03/18 03:45 Labs: Abnormal Lab Results - Last 24 Hours (Table) 06/03/18 06/03/18 06/03/18 Range/Units 03:45 03:45 03:45 RBC 2.74 L (4.30-5.90) m/uL Hgb 8.6 L (13.0-17.5) gm/dL Hct 27.4 L (39.0-53.0) % MCV (80.0-100.0) fL RDW (11.5-15.5) % INR 1.2 H (<1.2) APTT 33.4 H (22.0-30.0) sec Chloride 112 H (98-107) mmol/L BUN 54 H (9-20) mg/dL Creatinine 2.67 H (0.66-1.25) mg/dL Glucose 124 H (74-99) mg/dL POC Glucose (mg/dL) (75-99) mg/dL 06/03/18 06/03/18 06/03/18 Range/Units 06:08 06:32 11:45 RBC 2.86 L (4.30-5.90) m/uL Hgb 9.2 L (13.0-17.5) gm/dL Hct 28.7 L (39.0-53.0) % MCV 100.5 H (80.0-100.0) fL RDW (11.5-15.5) % INR (<1.2) APTT (22.0-30.0) sec Chloride (98-107) mmol/L BUN (9-20) mg/dL Creatinine (0.66-1.25) mg/dL Glucose (74-99) mg/dL POC Glucose (mg/dL) 122 H 145 H (75-99) mg/dL 06/03/18 06/03/18 06/03/18 Range/Units 15:51 17:18 20:45 RBC 2.71 L (4.30-5.90) m/uL Hgb 9.2 L (13.0-17.5) gm/dL Hct 27.7 L (39.0-53.0) % MCV 102.1 H (80.0-100.0) fL RDW 15.6 H (11.5-15.5) % INR (<1.2) APTT (22.0-30.0) sec Chloride (98-107) mmol/L BUN (9-20) mg/dL Creatinine (0.66-1.25) mg/dL Glucose (74-99) mg/dL POC Glucose (mg/dL) 140 H 140 H (75-99) mg/dL Microbiology - Last 24 Hours (Table) 06/02/18 17:30 Gram Stain - Preliminary Lung Aspirate - Left Tissue Culture - Preliminary Assessment and Plan Assessment: Acute renal failure Acute urinary retention with hematuria Community-acquired pneumonia A. fib with RVR. 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 Labs and medication reviews. Continue with antibiotic as per infectious disease. Pairing Machine Operator evaluation is appreciated and they on Protonix for fluid management. Hold Lasix and losartan as per the recommendation. Cardiology evaluation is appreciated. patient has indwelling Bell catheter currently. DC metformin and put patient on sliding scale. Continue with the same medication. Continue with symptomatic treatment. Resume home medication. Monitor lytes and vitals. DVT and GI prophylaxis. Further recommendation is based on the clinical progress of the patient DVT prophylaxis: No heparin in view of hematuria GI prophylaxis. Pepcid PT/OT: Pending, especially in the view of recurrent falls we will ask for physical therapy evaluation. Prognosis is guarded
--- NOTE | 2018-06-03 23:36 | PN ---
PROGRESS NOTE DATE OF SERVICE: 06/03/2018. REASON FOR FOLLOWUP: Pneumonia. INTERVAL HISTORY: The patient is afebrile. He seems to be breathing comfortably. Currently has some cough. Did bring up some sputum. No nausea, vomiting, abdominal pain. Did have some significant hematuria and did have Melchor catheter. EXAMINATION: Blood pressure 115/68 with a pulse of 100, temperature 97.9. He is 95% on 4 L nasal cannula. General description is an elderly male up in the chair in no distress. Respiratory system: Unlabored breathing. Coarse breath sounds in the bases. No wheeze. Heart S1-S2 regular rate and rhythm. Abdomen soft. No tenderness. LABS: Hemoglobin 9.8, white count 8.2. Sputum culture currently pending. DIAGNOSTIC IMPRESSION AND PLAN: Patient admitted to the hospital with difficulty breathing, coughing, did have a chest x-ray outpatient with evidence of right upper lobe pneumonia. The patient is currently covered with Rocephin and doxycycline that will be continued for now. Would follow up on the sputum culture. Continue supportive care. MMODL / IJN: [id number] /
[2018-06-04] MEDS: INSULIN ASPART 100 UNIT/ML 1 ML 10 ML VIAL SQ SCH ×4 (05:54→21:07)
[2018-06-04 05:55] LABS: Glucose,Whole Blood 103 mg/dL (75-99)
[2018-06-04] MEDS: DOXYCYCLINE 100 MG in SODIUM CHLORIDE 0.9% 100 ML IVPB SCH ×2 (06:04→19:30)
[2018-06-04] MEDS: LEVOTHYROXINE 50 MCG TAB PO SCH (06:04)
[2018-06-04] MEDS: CARVEDILOL 6.25 MG TAB PO SCH ×2 (06:04→19:00)
[2018-06-04 07:23] LABS: HCT 25.9 % (39.0-53.0); HGB 8.5 gm/dL (13.0-17.5); Hypochromasia Slight; MCH 33.1 pg (25.0-35.0); MCHC 32.8 g/dL (31.0-37.0); MCV 100.7 fL (80.0-100.0); Macrocytosis Slight; Mean Platelet Volume 7.6; Platelet Count 205 k/uL (150-450); RBC 2.57 m/uL (4.30-5.90); RDW 15.6 % (11.5-15.5); WBC 6.6 k/uL (3.8-10.6)
[2018-06-04 07:38] LABS: Calcium 8.7 mg/dL (8.4-10.2); Magnesium 1.9 mg/dL (1.6-2.3); Potassium 4.5 mmol/L (3.5-5.1)
[2018-06-04] MEDS: PANTOPRAZOLE 40 MG TABLET PO SCH ×2 (09:33→21:06)
[2018-06-04] MEDS: DULoxetine HCL 60 MG CAPSULE.DR PO SCH (09:33)
[2018-06-04] MEDS: ALLOPURINOL 300 MG TAB PO SCH (09:33)
[2018-06-04] MEDS: GABAPENTIN 100 MG CAP PO SCH ×2 (09:33→21:06)
[2018-06-04] MEDS: TAMSULOSIN 0.4 MG CAP.ER.24H PO SCH (09:33)
[2018-06-04] MEDS: ASPIRIN 81 MG PO SCH (09:33)
[2018-06-04] MEDS: hydrALAZINE HCL 50 MG TAB PO SCH ×3 (09:33→21:01)
[2018-06-04 12:08] LABS: Glucose,Whole Blood 141 mg/dL (75-99)
--- NOTE | 2018-06-04 12:19 | P.PN ---
Subjective Progress Note Date: 06/04/18 This is a pleasant 73-year-old gentleman who follows with Dr. Toure in the office. He has a known history of diabetes, hypertension, hyperlipidemia , obesity, prior vascular surgery in the left leg with evidence of chronic edema. He was a transfer here from [facility]. Patient presented to [facility] with mainly complaints of pain in his left leg with associated significant increase in swelling in that leg. He states that he's had at least a 10 pound weight gain in the past one week. Patient does complain of mild shortness of breath but states that he is always somewhat short of breath with minimal exertion. Patient states that he also experienced a fall, denies any syncope, just states that he couldn't use his left foot. Patient also states that he recently had a left lower extremity venous Doppler study which was negative for any DVT. He has a chronic indwelling catheter which was recently placed because of urinary retention, there is some blood noted in his urine this morning. Patient does have a prior history of nicotine dependence and also has history of hypothyroidism, history of aortic aneurysm repair, aortobifemoral surgery and nephrectomy. Laboratory data performed at [facility] was reviewed, sodium 137, potassium 4.5, BUN 44, creatinine 2.9. BNP level 380, white blood cell count 8.8, hemoglobin 9.5, platelet count 180. EKG shows atrial fibrillation with a rapid ventricular response, heart rate 127. According to the patient, he has been told to have an irregular heartbeat and was on Eliquis for anticoagulation at home. Blood pressure 134/60 with a heart rate of 100 this morning, 93% on 4 L of oxygen. Sodium this morning 142, potassium 4.5, BUN 46, creatinine 3.0, troponin 0.020. Patient's creatinine on April 26 of this year was 0.8. At the time of my examination this morning, patient feels well, no complaints, still having some mild discomfort in his left leg. 06/03/2018 Patient was seen and examined this morning, he had a few episodes of epistaxis passing large clots, he was also having significant hematuria passing clots as well,he has been in and out of atrial fibrillation today through most of the day. Currently in normal sinus rhythm.blood pressure 138/60 with a heart rate in the 80s, 94% on room air.White blood cell count 8.4, hemoglobin 9.2, platelet count 196.patient had been on Eliquis, we will discontinue it at this time. Repeat an H&H this afternoon . 06/04/2018 Patient was seen and examined this morning, continues to have hematuria, no further epistaxis. Hemoglobin today 8.5. Continues to be in and out of atrial fibrillation.blood pressure 126/80, heart rate in the 80s to the 120s. Sodium 141, potassium 4.5, BUN 60, creatinine 2.9, magnesium 1.9. Objective - Vital Signs Vital signs: Vital Signs Temp 98.3 F 06/04/18 03:41 Pulse 122 H 06/04/18 03:41 Resp 20 06/04/18 03:41 BP 127/86 06/04/18 03:41 Pulse Ox 96 06/04/18 03:41 Intake & Output 06/03/18 06/04/18 06/04/18 18:59 06:59 18:59 Intake Total 460 1620 350 Output Total 2300 1650 Balance -1840 -30 350 Weight 143.3 kg Intake: Intake, IV Titration 100 Amount cefTRIAXone 1,000 mg In 100 Sodium Chloride 0.9% 50 ml @ 100 mls/hr IVPB Q24HR [facility] Rx#:[id number] Oral 360 1620 350 Output: Urine 2300 1650 Uretheral (Melchor) 1400 Other: Voiding Method Indwelling Catheter Indwelling Catheter # Bowel Movements 1 - Exam PHYSICAL EXAMINATION: GENERAL: 73-year-old gentleman in no acute distress at the time of my examination HEENT: Head is atraumatic, normocephalic. Pupils equal, round. Sclera anicteric. Conjunctiva are clear. Mucous membranes of the mouth are moist. Neck is supple. There is no elevated jugular venous pressure. No carotid bruit is heard. HEART EXAMINATION: Heart S1-S2 normal CHEST EXAMINATION: Lungs are clear diminished air entry to bilateral bases. ABDOMEN: Soft, obese, nontender. Bowel sounds are heard. No organomegaly noted. EXTREMITIES: 1+ peripheral pulses with evidence of 2-3+ peripheral edema in the left lower extremity, 1+ in the right lower extremity . NEUROLOGIC patient is awake, alert and oriented X3. - Labs CBC & Chem 7: 06/04/18 06:14 06/04/18 06:14 Labs: Abnormal Lab Results - Last 24 Hours (Table) 06/03/18 06/03/18 06/03/18 Range/Units 15:51 17:18 20:45 RBC 2.71 L (4.30-5.90) m/uL Hgb 9.2 L (13.0-17.5) gm/dL Hct 27.7 L (39.0-53.0) % MCV 102.1 H (80.0-100.0) fL RDW 15.6 H (11.5-15.5) % Chloride (98-107) mmol/L Carbon Dioxide (22-30) mmol/L BUN (9-20) mg/dL Creatinine (0.66-1.25) mg/dL Glucose (74-99) mg/dL POC Glucose (mg/dL) 140 H 140 H (75-99) mg/dL 06/04/18 06/04/18 06/04/18 Range/Units 05:53 06:14 06:14 RBC 2.57 L (4.30-5.90) m/uL Hgb 8.5 L (13.0-17.5) gm/dL Hct 25.9 L (39.0-53.0) % MCV 100.7 H (80.0-100.0) fL RDW 15.6 H (11.5-15.5) % Chloride 109 H (98-107) mmol/L Carbon Dioxide 21 L (22-30) mmol/L BUN 60 H (9-20) mg/dL Creatinine 2.94 H (0.66-1.25) mg/dL Glucose 103 H (74-99) mg/dL POC Glucose (mg/dL) 103 H (75-99) mg/dL 06/04/18 Range/Units 12:03 RBC (4.30-5.90) m/uL Hgb (13.0-17.5) gm/dL Hct (39.0-53.0) % MCV (80.0-100.0) fL RDW (11.5-15.5) % Chloride (98-107) mmol/L Carbon Dioxide (22-30) mmol/L BUN (9-20) mg/dL Creatinine (0.66-1.25) mg/dL Glucose (74-99) mg/dL POC Glucose (mg/dL) 141 H (75-99) mg/dL Microbiology - Last 24 Hours (Table) 06/03/18 16:33 Urine Culture - Preliminary Urine,Catheterized 06/02/18 17:30 Gram Stain - Preliminary Lung Aspirate - Left Tissue Culture - Preliminary Assessment and Plan Plan: Assessment and plan #1 atrial fibrillation with rapid ventricular response, paroxysmal, on Eliquis for anticoagulation #2 acute renal failure #3 diabetes #4 hypertension #5 hyperlipidemia #6 chronic left lower extremity edema, appears to be worse according to the patient, associated pain. #7 obesity #8 prior history of smoking #9 hypothyroidism #10 prior nephrectomy #11 aortic aneurysm repair #12 bilateral fem-pop Plan At this point we will continue to hold the patient's Eliquis. We will discontinue the Coreg and start the patient on metoprolol for more optimal heart rate control. DNP note has been reviewed, I agree with a documented findings and plan of care. Patient was seen and examined.
--- NOTE | 2018-06-04 14:44 | P.PN ---
Subjective Patient is seen in follow-up for acute kidney injury on chronic kidney disease. Creatinine was 3 on admission and did come down to 2.67 on June 03 - 2.94 today. 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 He is nonoliguric. Patient has a Melchor catheter in place. Denies chest pain. Patient remains in A. fib. Oral intake is good. No vomiting or diarrhea. Melchor catheter appears to be leaking again and will be replaced. Vital signs are stable. General: The patient appeared well nourished and normally developed. HEENT: Head exam is unremarkable. Neck is without jugular venous distension. LUNGS: Lungs are clear to auscultation and percussion. Breath sounds decreased. HEART: Rate and Rhythm are regular. First and second heart sounds normal. No murmurs, rubs or gallops. ABDOMEN: Abdominal exam reveals normal bowel sounds. Non-tender and non- distended. No evidence of peritonitis. EXTREMITITES: 1+ edema in the right lower extremity. Chronic skin changes noted in the left lower extremity. Objective - Vital Signs Vital signs: Vital Signs Temp 97.2 F L 06/04/18 12:00 Pulse 102 H 06/04/18 12:00 Resp 20 06/04/18 12:00 BP 120/74 06/04/18 12:00 Pulse Ox 95 06/04/18 12:00 Intake & Output 06/03/18 06/04/18 06/04/18 18:59 06:59 18:59 Intake Total 460 1620 590 Output Total 2300 1650 Balance -1840 -30 590 Weight 143.3 kg Intake: Intake, IV Titration 100 Amount cefTRIAXone 1,000 mg In 100 Sodium Chloride 0.9% 50 ml @ 100 mls/hr IVPB Q24HR [facility] Rx#:[id number] Oral 360 1620 590 Output: Urine 2300 1650 Uretheral (Melchor) 1400 Other: Voiding Method Indwelling Catheter Indwelling Catheter Indwelling Catheter # Bowel Movements 1 - Labs CBC & Chem 7: 06/04/18 06:14 06/04/18 06:14 Labs: Abnormal Lab Results - Last 24 Hours (Table) 06/03/18 06/03/18 06/03/18 Range/Units 15:51 17:18 20:45 RBC 2.71 L (4.30-5.90) m/uL Hgb 9.2 L (13.0-17.5) gm/dL Hct 27.7 L (39.0-53.0) % MCV 102.1 H (80.0-100.0) fL RDW 15.6 H (11.5-15.5) % Chloride (98-107) mmol/L Carbon Dioxide (22-30) mmol/L BUN (9-20) mg/dL Creatinine (0.66-1.25) mg/dL Glucose (74-99) mg/dL POC Glucose (mg/dL) 140 H 140 H (75-99) mg/dL 06/04/18 06/04/18 06/04/18 Range/Units 05:53 06:14 06:14 RBC 2.57 L (4.30-5.90) m/uL Hgb 8.5 L (13.0-17.5) gm/dL Hct 25.9 L (39.0-53.0) % MCV 100.7 H (80.0-100.0) fL RDW 15.6 H (11.5-15.5) % Chloride 109 H (98-107) mmol/L Carbon Dioxide 21 L (22-30) mmol/L BUN 60 H (9-20) mg/dL Creatinine 2.94 H (0.66-1.25) mg/dL Glucose 103 H (74-99) mg/dL POC Glucose (mg/dL) 103 H (75-99) mg/dL 06/04/18 Range/Units 12:03 RBC (4.30-5.90) m/uL Hgb (13.0-17.5) gm/dL Hct (39.0-53.0) % MCV (80.0-100.0) fL RDW (11.5-15.5) % Chloride (98-107) mmol/L Carbon Dioxide (22-30) mmol/L BUN (9-20) mg/dL Creatinine (0.66-1.25) mg/dL Glucose (74-99) mg/dL POC Glucose (mg/dL) 141 H (75-99) mg/dL Microbiology - Last 24 Hours (Table) 06/03/18 16:33 Urine Culture - Preliminary Urine,Catheterized 06/02/18 17:30 Gram Stain - Preliminary Lung Aspirate - Left Tissue Culture - Preliminary Assessment and Plan Plan: Assessment: 1. Acute kidney injury secondary to ATN secondary to hemodynamic instability and hypovolemia from diuretics. There is also component of urinary retention. Additionally he was on Bactrim which is now held. Bactrim will impair creatinine secretion and will falsely elevate creatinine levels. Creatinine 3 on admission and did come down to 2.67 on June 03. It is 2.94 today. 2. Chronic kidney disease stage II secondary to solitary left kidney. Baseline creatinine near 1. 3. Urinary retention status post Melchor catheter placement. Urology following. 4. Anemia. iron deficiency noted. 5. A. fib with RVR. Cardiology following. 6. Diabetes mellitus. 7. History of right-sided nephrectomy in 1987. 8. Enlarged left kidney with multiple cysts. This is suggestive of polycystic kidney disease. Patient denies family history of renal disease. 9. Pyuria. Check urine culture. 10. Pneumonia maintained on antibiotics. Infectious disease following. 11. Hydronephrosis in the left kidney. Urology following. 12. Epistaxis status post nasal packing this morning. Eliquis held. Plan: Maintain Melchor catheter. Maintain Flomax. Encouraged oral intake. Continue to hold losartan for now. Ferrlecit 125 mg IV daily for 3 days. Second dose today. Maintain current antihypertensives.
[2018-06-04 16:23] LABS: Glucose,Whole Blood 126 mg/dL (75-99)
--- NOTE | 2018-06-04 18:36 | P.PN ---
Subjective This is a pleasant 73 years old male with past medical history of atrial fibrillation, congestive heart failure, diabetes mellitus, hypertension, hyperlipidemia, coronary artery disease, lumbosacral radiculopathy at L5. Morbid obesity. History of gout. Recurrent falls. history of pneumonia and hypothyroidism. This is status post CABG. He presents to [facility] because he fell as per documentation. At baseline he walks using a walker. Patient denies loss of consciousness. No headache. As per documentation he gained about 10 pounds of weight. He has significant swelling of his lower extremity recently. Patient also presents with urinary retention and hematuria. He has also A. fib with RVR, as per EKG his heart rate was 127 Patient denies to me any headache. No chest pain. Mildly dyspneic/tachypneic. His confident with no specific phlegm. He does not use oxygen at home. Vital signs at [facility] were stable. Labs at [facility] were as follow: INR 1.5 function tests within normal limits. CPK 102. WBC 8.8. Hemoglobin 9.5. Platelets 1H. BNP 380. Glucose 85. Creatinine high at 2.9, compared to baseline around 1. Potassium 4.5. Venous Doppler showing no evidence of DVT . Chest x-ray suspicious for right upper lobe pneumonia as per radiologist's report 06/03/2018 pt is lying in chain , no in distress. still has hematuria from his bell , he has epistaxis from his left nostril that needed ENT to pack it. cardiology follow up is appreciated. pt remains on blood thinner, however it was discontinued today as per cardiology recommendation , his Hb is stable at 9.2. no leukocytosis , sugar is controlled. CXR: no CHF. cr is trending down 3.0 to 2.6. got lasix today by nephrology recommendation, Physical therapy evaluated pt since he came with fall, and they recommended home with no therapy. 06/04/2018 Patient lying in bed with no chest pain or dyspnea. Patient still have hematuria. Patient hemoglobin dropped from 9.2 to 8.5 However his Bell catheter was leaking and was just exchanged. Patient has dull left nasal pack. No abdominal pain. On nausea or vomiting. No fluid or more diuretics. Patient encouraged for oral intake. IV iron is provided for 3 days. Patient Eliquis is on hold as per cardiology recommendation and change Coreg to metoprolol. Patient remains on Rocephin and doxycycline for right upper lobe pneumonia. Consultants from cardiology's last nephrology and infectious disease teams are appreciated. Sugars: Folds. And his creatinine went up from 2.6 to 2.9. Objective - Vital Signs Vital signs: Vital Signs Temp 97.8 F 06/04/18 15:41 Pulse 102 H 06/04/18 17:15 Resp 18 06/04/18 17:15 BP 110/72 06/04/18 15:41 Pulse Ox 95 06/04/18 15:41 Intake & Output 06/03/18 06/04/18 06/04/18 18:59 06:59 18:59 Intake Total 460 1620 1670 Output Total 2300 1650 1150 Balance -1840 -30 520 Weight 143.3 kg Intake: Intake, IV Titration 100 Amount cefTRIAXone 1,000 mg In 100 Sodium Chloride 0.9% 50 ml @ 100 mls/hr IVPB Q24HR [facility] Rx#:[id number] Oral 360 1620 1670 Output: Urine 2300 1650 1150 Uretheral (Bell) 1400 1150 Other: Voiding Method Indwelling Catheter Indwelling Catheter Indwelling Catheter # Bowel Movements 1 - Exam GENERAL: The patient is alert and oriented x3, not in any acute distress. Well developed, well nourished. HEENT: Pupils are round and equally reacting to light. EOMI. No scleral icterus. No conjunctival pallor. Normocephalic, atraumatic. No pharyngeal erythema. No thyromegaly. CARDIOVASCULAR: S1 and S2 present. No murmurs, rubs, or gallops. PULMONARY: Chest is clear to auscultation, no wheezing or crackles. ABDOMEN: Soft, nontender, nondistended, normoactive bowel sounds. No palpable organomegaly. -Urogenital: Patient has Bell catheter in place with red urine in the bag. MUSCULOSKELETAL: No joint swelling or deformity. -EXTREMITIES: No cyanosis, clubbing, bilateral pedal edema. NEUROLOGICAL: Gross neurological examination did not reveal any focal deficits. SKIN: No rashes. - Labs CBC & Chem 7: 06/04/18 06:14 06/04/18 06:14 Labs: Abnormal Lab Results - Last 24 Hours (Table) 06/03/18 06/04/18 06/04/18 Range/Units 20:45 05:53 06:14 RBC (4.30-5.90) m/uL Hgb (13.0-17.5) gm/dL Hct (39.0-53.0) % MCV (80.0-100.0) fL RDW (11.5-15.5) % Chloride 109 H (98-107) mmol/L Carbon Dioxide 21 L (22-30) mmol/L BUN 60 H (9-20) mg/dL Creatinine 2.94 H (0.66-1.25) mg/dL Glucose 103 H (74-99) mg/dL POC Glucose (mg/dL) 140 H 103 H (75-99) mg/dL 06/04/18 06/04/18 06/04/18 Range/Units 06:14 12:03 16:20 RBC 2.57 L (4.30-5.90) m/uL Hgb 8.5 L (13.0-17.5) gm/dL Hct 25.9 L (39.0-53.0) % MCV 100.7 H (80.0-100.0) fL RDW 15.6 H (11.5-15.5) % Chloride (98-107) mmol/L Carbon Dioxide (22-30) mmol/L BUN (9-20) mg/dL Creatinine (0.66-1.25) mg/dL Glucose (74-99) mg/dL POC Glucose (mg/dL) 141 H 126 H (75-99) mg/dL Microbiology - Last 24 Hours (Table) 06/03/18 16:33 Urine Culture - Preliminary Urine,Catheterized 06/02/18 17:30 Gram Stain - Preliminary Lung Aspirate - Left Tissue Culture - Preliminary Assessment and Plan Assessment: Acute renal failure Acute urinary retention with hematuria Community-acquired pneumonia A. fib with RVR. 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 Labs and medication reviews. Continue with antibiotic as per infectious disease. Hot Knife Foxing Cutter evaluation is appreciated and they on Protonix for fluid management. Hold Lasix and losartan as per the recommendation. Cardiology evaluation is appreciated. patient has indwelling Bell catheter currently. DC metformin and put patient on sliding scale. Continue with the same medication. Continue with symptomatic treatment. Resume home medication. Monitor lytes and vitals. DVT and GI prophylaxis. Further recommendation is based on the clinical progress of the patient DVT prophylaxis: No heparin in view of hematuria GI prophylaxis. Pepcid PT/OT: Pending, especially in the view of recurrent falls we will ask for physical therapy evaluation. Prognosis is guarded
[2018-06-04 20:46] LABS: Glucose,Whole Blood 160 mg/dL (75-99)
[2018-06-04] MEDS ORDERED: SENNOSIDES 8.6 MG TAB PO PRN (20:58)
[2018-06-04] MEDS: ATORVASTATIN 20 MG TAB PO SCH (21:06)
[2018-06-04] MEDS: DOCUSATE 100 MG CAP PO SCH (21:06)
[2018-06-05] MEDS: DOXYCYCLINE 100 MG in SODIUM CHLORIDE 0.9% 100 ML IVPB SCH ×2 (06:31→17:55)
[2018-06-05 06:36] LABS: Glucose,Whole Blood 182 mg/dL (75-99)
[2018-06-05 06:58] LABS: HCT 26.3 % (39.0-53.0); HGB 8.3 gm/dL (13.0-17.5); Hypochromasia Slight; MCH 31.1 pg (25.0-35.0); MCHC 31.5 g/dL (31.0-37.0); MCV 98.8 fL (80.0-100.0); Macrocytosis Slight; Mean Platelet Volume 8.3; Platelet Count 225 k/uL (150-450); RBC 2.66 m/uL (4.30-5.90); RDW 15.2 % (11.5-15.5)
[2018-06-05] MEDS: INSULIN ASPART 100 UNIT/ML 1 ML 10 ML VIAL SQ SCH ×4 (06:59→21:06)
[2018-06-05] MEDS: CARVEDILOL 6.25 MG TAB PO SCH (06:59)
[2018-06-05] MEDS: LEVOTHYROXINE 50 MCG TAB PO SCH (06:59)
[2018-06-05 07:13] LABS: Calcium 8.6 mg/dL (8.4-10.2); Magnesium 1.8 mg/dL (1.6-2.3); Potassium 4.6 mmol/L (3.5-5.1)
--- NOTE | 2018-06-05 08:11 | PN ---
PROGRESS NOTE DATE OF SERVICE: 06/04/2018. REASON FOR FOLLOWUP: Possible pneumonia. INTERVAL HISTORY: The patient is afebrile. He is still complaining of some shortness of breath. He did have a cough but not bringing up any sputum. No chest pain. No abdominal pain or any diarrhea. EXAMINATION: Blood pressure is 110/72 with a pulse of 100. Temperature 97.9. He is 97% on 2 L nasal cannula. General description is an elderly male lying in bed in no distress. Respiratory system unlabored breathing. Some coarse breath sounds in the bases. No wheeze. Heart S1, S2. Regular rate and rhythm. Abdomen soft. No tenderness. LABS: Hemoglobin 8.5, white count 6.6 with a BUN of 16, creatinine is 2.94. Sputum culture currently pending. DIAGNOSTIC IMPRESSION AND PLAN: Patient admitted to the hospital with difficulty breathing. The patient did have a congested cough with outpatient x-ray suspicious for pneumonia. The patient is currently covered with Rocephin and doxycycline that will continue narrowing antibiotic on the basis of the culture report. Continue supportive care. MMODL / IJN: [id number] /
[2018-06-05] MEDS: ASPIRIN 81 MG PO SCH (08:39)
[2018-06-05] MEDS: ALLOPURINOL 300 MG TAB PO SCH (08:39)
[2018-06-05] MEDS: TAMSULOSIN 0.4 MG CAP.ER.24H PO SCH (08:39)
[2018-06-05] MEDS: DULoxetine HCL 60 MG CAPSULE.DR PO SCH (08:40)
[2018-06-05] MEDS: GABAPENTIN 100 MG CAP PO SCH ×2 (08:40→21:04)
[2018-06-05] MEDS: hydrALAZINE HCL 50 MG TAB PO SCH ×3 (08:40→22:20)
[2018-06-05] MEDS: DOCUSATE 100 MG CAP PO SCH ×2 (08:40→21:04)
[2018-06-05] MEDS: PANTOPRAZOLE 40 MG TABLET PO SCH ×2 (08:40→21:04)
--- NOTE | 2018-06-05 11:48 | P.PN ---
Subjective Patient is seen in follow-up for acute kidney injury on chronic kidney disease. Renal function is improved since admission. Creatinine is 2.78 today. 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 He is nonoliguric. Patient has a Melchor catheter in place. Denies chest pain. Patient remains in A. fib. Oral intake is good. No vomiting or diarrhea. Melchor catheter was replaced yesterday as he was leaking. Vital signs are stable. General: The patient appeared well nourished and normally developed. HEENT: Head exam is unremarkable. Neck is without jugular venous distension. LUNGS: Lungs are clear to auscultation and percussion. Breath sounds decreased. HEART: Rate and Rhythm are regular. First and second heart sounds normal. No murmurs, rubs or gallops. ABDOMEN: Abdominal exam reveals normal bowel sounds. Non-tender and non- distended. No evidence of peritonitis. EXTREMITITES: 1+ edema in the right lower extremity. Chronic skin changes noted in the left lower extremity. Objective - Vital Signs Vital signs: Vital Signs Temp 97.7 F 06/05/18 08:30 Pulse 132 H 06/05/18 08:30 Resp 20 06/05/18 08:30 BP 159/91 06/05/18 08:30 Pulse Ox 99 06/05/18 08:30 Intake & Output 06/04/18 06/05/18 06/05/18 18:59 06:59 18:59 Intake Total 1670 1150 Output Total 1150 2550 Balance 520 -1400 Weight 145.1 kg Intake: Oral 1670 1150 Output: Urine 1150 2550 Uretheral (Melchor) 1150 Other: Voiding Method Indwelling Catheter Indwelling Catheter Indwelling Catheter # Bowel Movements 1 - Labs CBC & Chem 7: 06/05/18 06:22 06/05/18 06:22 Labs: Abnormal Lab Results - Last 24 Hours (Table) 06/04/18 06/04/18 06/04/18 Range/Units 12:03 16:20 20:40 RBC (4.30-5.90) m/uL Hgb (13.0-17.5) gm/dL Hct (39.0-53.0) % Chloride (98-107) mmol/L Carbon Dioxide (22-30) mmol/L BUN (9-20) mg/dL Creatinine (0.66-1.25) mg/dL Glucose (74-99) mg/dL POC Glucose (mg/dL) 141 H 126 H 160 H (75-99) mg/dL 06/05/18 06/05/18 06/05/18 Range/Units 06:07 06:22 06:22 RBC 2.66 L (4.30-5.90) m/uL Hgb 8.3 L (13.0-17.5) gm/dL Hct 26.3 L (39.0-53.0) % Chloride 111 H (98-107) mmol/L Carbon Dioxide 21 L (22-30) mmol/L BUN 57 H (9-20) mg/dL Creatinine 2.78 H (0.66-1.25) mg/dL Glucose 126 H (74-99) mg/dL POC Glucose (mg/dL) 182 H (75-99) mg/dL Microbiology - Last 24 Hours (Table) 06/03/18 16:33 Urine Culture - Final Urine,Catheterized Assessment and Plan Plan: Assessment: 1. Acute kidney injury secondary to ATN secondary to hemodynamic instability and hypovolemia from diuretics. There is also component of urinary retention. Additionally he was on Bactrim which is now held. Bactrim will impair creatinine secretion and will falsely elevate creatinine levels. Creatinine 3 on admission and is 2.78 today. 2. Chronic kidney disease stage II secondary to solitary left kidney. Baseline creatinine near 1. 3. Urinary retention status post Melchor catheter placement. Urology following. 4. Anemia. iron deficiency noted. 5. A. fib with RVR. Cardiology following. 6. Diabetes mellitus. 7. History of right-sided nephrectomy in 1987. 8. Enlarged left kidney with multiple cysts. This is suggestive of polycystic kidney disease. Patient denies family history of renal disease. 9. Pyuria. Check urine culture. 10. Pneumonia maintained on antibiotics. Infectious disease following. 11. Hydronephrosis in the left kidney. Urology following. 12. Epistaxis status post nasal packing this morning. Eliquis held. Plan: Maintain Melchor catheter. Maintain Flomax. Encouraged oral intake. Continue to hold losartan for now. Ferrlecit 125 mg IV daily for 3 days. thirddose today. Maintain current antihypertensives.
[2018-06-05 11:50] LABS: Glucose,Whole Blood 143 mg/dL (75-99)
--- NOTE | 2018-06-05 12:29 | P.PN ---
Subjective Progress Note Date: 06/05/18 This is a pleasant 73-year-old gentleman who follows with Dr. Toure in the office. He has a known history of diabetes, hypertension, hyperlipidemia , obesity, prior vascular surgery in the left leg with evidence of chronic edema. He was a transfer here from [facility]. Patient presented to [facility] with mainly complaints of pain in his left leg with associated significant increase in swelling in that leg. He states that he's had at least a 10 pound weight gain in the past one week. Patient does complain of mild shortness of breath but states that he is always somewhat short of breath with minimal exertion. Patient states that he also experienced a fall, denies any syncope, just states that he couldn't use his left foot. Patient also states that he recently had a left lower extremity venous Doppler study which was negative for any DVT. He has a chronic indwelling catheter which was recently placed because of urinary retention, there is some blood noted in his urine this morning. Patient does have a prior history of nicotine dependence and also has history of hypothyroidism, history of aortic aneurysm repair, aortobifemoral surgery and nephrectomy. Laboratory data performed at [facility] was reviewed, sodium 137, potassium 4.5, BUN 44, creatinine 2.9. BNP level 380, white blood cell count 8.8, hemoglobin 9.5, platelet count 180. EKG shows atrial fibrillation with a rapid ventricular response, heart rate 127. According to the patient, he has been told to have an irregular heartbeat and was on Eliquis for anticoagulation at home. Patient did have significant epistaxis with large clots, status post packing of the left nare. He is to have hematuria. No further epistaxis noted. Objective - Vital Signs Vital signs: Vital Signs Temp 97.7 F 06/05/18 08:30 Pulse 132 H 06/05/18 08:30 Resp 20 06/05/18 08:30 BP 159/91 06/05/18 08:30 Pulse Ox 99 06/05/18 08:30 Intake & Output 06/04/18 06/05/18 06/05/18 18:59 06:59 18:59 Intake Total 1670 1150 600 Output Total 1150 2550 850 Balance 520 -1400 -250 Weight 145.1 kg Intake: Oral 1670 1150 600 Output: Urine 1150 2550 850 Uretheral (Melchor) 1150 Other: Voiding Method Indwelling Catheter Indwelling Catheter Indwelling Catheter # Bowel Movements 1 - Exam PHYSICAL EXAMINATION: HEENT: Head is atraumatic, normocephalic. Pupils equal, round. Neck is supple. There is no elevated jugular venous pressure. Packing noted to left nare. HEART EXAMINATION: Heart sounds irregular irregular with tachycardia, S1 and S2 normal. No murmur or gallop heard. CHEST EXAMINATION: Lungs reveal diminished air entry bilaterally. No chest wall tenderness is noted on palpation or with deep breathing. ABDOMEN: Soft, obese, nontender. Bowel sounds are heard. No organomegaly noted. Melchor catheter in place with pink tinged urine. EXTREMITIES: 1+ peripheral pulses with no evidence of 3+ peripheral edema in the left lower extremity and 1+ in the right lower extremity and no calf tenderness noted. NEUROLOGIC patient is awake, alert and oriented x3. . - Labs CBC & Chem 7: 06/05/18 06:22 06/05/18 06:22 Labs: Abnormal Lab Results - Last 24 Hours (Table) 06/04/18 06/04/18 06/05/18 Range/Units 16:20 20:40 06:07 RBC (4.30-5.90) m/uL Hgb (13.0-17.5) gm/dL Hct (39.0-53.0) % Chloride (98-107) mmol/L Carbon Dioxide (22-30) mmol/L BUN (9-20) mg/dL Creatinine (0.66-1.25) mg/dL Glucose (74-99) mg/dL POC Glucose (mg/dL) 126 H 160 H 182 H (75-99) mg/dL 06/05/18 06/05/18 06/05/18 Range/Units 06:22 06:22 11:43 RBC 2.66 L (4.30-5.90) m/uL Hgb 8.3 L (13.0-17.5) gm/dL Hct 26.3 L (39.0-53.0) % Chloride 111 H (98-107) mmol/L Carbon Dioxide 21 L (22-30) mmol/L BUN 57 H (9-20) mg/dL Creatinine 2.78 H (0.66-1.25) mg/dL Glucose 126 H (74-99) mg/dL POC Glucose (mg/dL) 143 H (75-99) mg/dL Microbiology - Last 24 Hours (Table) 06/03/18 16:33 Urine Culture - Final Urine,Catheterized Assessment and Plan Assessment: #1 atrial fibrillation with rapid ventricular response, paroxysmal, on Eliquis for anticoagulation #2 acute renal failure #3 diabetes #4 hypertension #5 hyperlipidemia #6 chronic left lower extremity edema, appears to be worse according to the patient, associated pain. #7 obesity #8 prior history of smoking #9 hypothyroidism #10 prior nephrectomy #11 aortic aneurysm repair #12 bilateral fem-pop #13 epistaxis and hematuria, anticoagulation currently on hold Plan: From rehabilitation clerk perspective, continue to hold anticoagulation at this time. We will stop Coreg and put the patient on metoprolol 50 mg by mouth 3 times a day for better heart rate control. Continue to follow patient provide further recommendations accordingly. TELLER VAULT note has been reviewed, I agree with a documented findings and plan of care. Patient was seen and examined.
[2018-06-05 16:31] LABS: Glucose,Whole Blood 138 mg/dL (75-99)
[2018-06-05 20:55] LABS: Glucose,Whole Blood 146 mg/dL (75-99)
[2018-06-05] MEDS ORDERED: ACETAMINOPHEN TAB 325 MG TAB PO PRN (20:59)
[2018-06-05] MEDS: ATORVASTATIN 20 MG TAB PO SCH (21:04)
--- NOTE | 2018-06-05 23:34 | P.PN ---
Subjective This is a pleasant 73 years old male with past medical history of atrial fibrillation, congestive heart failure, diabetes mellitus, hypertension, hyperlipidemia, coronary artery disease, lumbosacral radiculopathy at L5. Morbid obesity. History of gout. Recurrent falls. history of pneumonia and hypothyroidism. This is status post CABG. He presents to [facility] because he fell as per documentation. At baseline he walks using a walker. Patient denies loss of consciousness. No headache. As per documentation he gained about 10 pounds of weight. He has significant swelling of his lower extremity recently. Patient also presents with urinary retention and hematuria. He has also A. fib with RVR, as per EKG his heart rate was 127 Patient denies to me any headache. No chest pain. Mildly dyspneic/tachypneic. His confident with no specific phlegm. He does not use oxygen at home. Vital signs at [facility] were stable. Labs at [facility] were as follow: INR 1.5 function tests within normal limits. CPK 102. WBC 8.8. Hemoglobin 9.5. Platelets 1H. BNP 380. Glucose 85. Creatinine high at 2.9, compared to baseline around 1. Potassium 4.5. Venous Doppler showing no evidence of DVT . Chest x-ray suspicious for right upper lobe pneumonia as per radiologist's report 06/03/2018 pt is lying in chain , no in distress. still has hematuria from his bell , he has epistaxis from his left nostril that needed ENT to pack it. cardiology follow up is appreciated. pt remains on blood thinner, however it was discontinued today as per cardiology recommendation , his Hb is stable at 9.2. no leukocytosis , sugar is controlled. CXR: no CHF. cr is trending down 3.0 to 2.6. got lasix today by nephrology recommendation, Physical therapy evaluated pt since he came with fall, and they recommended home with no therapy. 06/04/2018 Patient lying in bed with no chest pain or dyspnea. Patient still have hematuria. Patient hemoglobin dropped from 9.2 to 8.5 However his Bell catheter was leaking and was just exchanged. Patient has dull left nasal pack. No abdominal pain. On nausea or vomiting. No fluid or more diuretics. Patient encouraged for oral intake. IV iron is provided for 3 days. Patient Eliquis is on hold as per cardiology recommendation and change Coreg to metoprolol. Patient remains on Rocephin and doxycycline for right upper lobe pneumonia. Consultants from cardiology's last nephrology and infectious disease teams are appreciated. Sugars: Folds. And his creatinine went up from 2.6 to 2.9. 06/05/18 pt is lying in bed , not in distress. he still has red urine but is clearing up , bell still in place. today pt got third dose of iv iron today. pt is on ceftriaxone and doxycycline. no leukocytosis and cr is improving slightly from 2.9 to 2.7. sugar is controlled Objective - Vital Signs Vital signs: Vital Signs Temp 97.9 F 06/05/18 16:10 Pulse 103 H 06/05/18 16:10 Resp 20 06/05/18 16:10 BP 132/88 06/05/18 16:10 Pulse Ox 97 06/05/18 16:10 Intake & Output 06/05/18 06/05/18 06/06/18 06:59 18:59 06:59 Intake Total 1150 1200 Output Total 2550 1500 Balance -1400 -300 Weight 145.1 kg Intake: Oral 1150 1200 Output: Urine 2550 1500 Other: Voiding Method Indwelling Catheter Indwelling Catheter # Bowel Movements 1 - Exam GENERAL: The patient is alert and oriented x3, not in any acute distress. Well developed, well nourished. HEENT: Pupils are round and equally reacting to light. EOMI. No scleral icterus. No conjunctival pallor. Normocephalic, atraumatic. No pharyngeal erythema. No thyromegaly. CARDIOVASCULAR: S1 and S2 present. No murmurs, rubs, or gallops. PULMONARY: Chest is clear to auscultation, no wheezing or crackles. ABDOMEN: Soft, nontender, nondistended, normoactive bowel sounds. No palpable organomegaly. -Urogenital: Patient has Bell catheter in place with red urine in the bag. MUSCULOSKELETAL: No joint swelling or deformity. -EXTREMITIES: No cyanosis, clubbing, bilateral pedal edema. NEUROLOGICAL: Gross neurological examination did not reveal any focal deficits. SKIN: No rashes. - Labs CBC & Chem 7: 06/05/18 06:22 06/05/18 06:22 Labs: Abnormal Lab Results - Last 24 Hours (Table) 06/05/18 06/05/18 06/05/18 Range/Units 06:07 06:22 06:22 RBC 2.66 L (4.30-5.90) m/uL Hgb 8.3 L (13.0-17.5) gm/dL Hct 26.3 L (39.0-53.0) % Chloride 111 H (98-107) mmol/L Carbon Dioxide 21 L (22-30) mmol/L BUN 57 H (9-20) mg/dL Creatinine 2.78 H (0.66-1.25) mg/dL Glucose 126 H (74-99) mg/dL POC Glucose (mg/dL) 182 H (75-99) mg/dL 06/05/18 06/05/18 Range/Units 11:43 16:20 RBC (4.30-5.90) m/uL Hgb (13.0-17.5) gm/dL Hct (39.0-53.0) % Chloride (98-107) mmol/L Carbon Dioxide (22-30) mmol/L BUN (9-20) mg/dL Creatinine (0.66-1.25) mg/dL Glucose (74-99) mg/dL POC Glucose (mg/dL) 143 H 138 H (75-99) mg/dL Microbiology - Last 24 Hours (Table) 06/03/18 16:33 Urine Culture - Final Urine,Catheterized Assessment and Plan Assessment: Acute renal failure Acute urinary retention with hematuria Community-acquired pneumonia A. fib with RVR. 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 Labs and medication reviews. Continue with antibiotic as per infectious disease. [employer] Supervisor evaluation is appreciated and they on Protonix for fluid management. Hold Lasix and losartan as per the recommendation. Cardiology evaluation is appreciated. patient has indwelling Bell catheter currently. DC metformin and put patient on sliding scale. Continue with the same medication. Continue with symptomatic treatment. Resume home medication. Monitor lytes and vitals. DVT and GI prophylaxis. Further recommendation is based on the clinical progress of the patient DVT prophylaxis: No heparin in view of hematuria GI prophylaxis. Pepcid PT/OT: Pending, especially in the view of recurrent falls we will ask for physical therapy evaluation. Prognosis is guarded
[2018-06-06 00:11] LABS: HGB 7.3 gm/dL (13.0-17.5); Hypochromasia Moderate; MCH 31.5 pg (25.0-35.0); MCHC 31.5 g/dL (31.0-37.0); MCV 99.9 fL (80.0-100.0); Macrocytosis Slight; Mean Platelet Volume 7.8; Platelet Count 216 k/uL (150-450); RDW 15.4 % (11.5-15.5)
[2018-06-06 00:25] LABS: Calcium 8.4 mg/dL (8.4-10.2); Potassium 4.5 mmol/L (3.5-5.1)
[2018-06-06 05:58] LABS: Glucose,Whole Blood 160 mg/dL (75-99)
[2018-06-06] MEDS: DOXYCYCLINE 100 MG in SODIUM CHLORIDE 0.9% 100 ML IVPB SCH ×2 (06:21→17:09)
[2018-06-06] MEDS: INSULIN ASPART 100 UNIT/ML 1 ML 10 ML VIAL SQ SCH ×4 (06:22→20:33)
[2018-06-06] MEDS: LEVOTHYROXINE 50 MCG TAB PO SCH (06:29)
[2018-06-06 07:08] LABS: Basophils % (A) 0 %; Eosinophils # (A) 0.4 k/uL (0-0.7); Eosinophils % (A) 7 %; HCT 23.5 % (39.0-53.0); HGB 7.4 gm/dL (13.0-17.5); Hypochromasia Slight; Lymphocytes # (A) 1.1 k/uL (1.0-4.8); Lymphocytes % (A) 19 %; MCH 31.4 pg (25.0-35.0); MCHC 31.4 g/dL (31.0-37.0); Macrocytosis Slight; Mean Platelet Volume 7.9; Monocytes # (A) 0.5 k/uL (0-1.0); Monocytes % (A) 8 %; Neutrophils # (A) 3.8 k/uL (1.3-7.7); Neutrophils % (A) 63 %; Platelet Count 228 k/uL (150-450); RBC 2.35 m/uL (4.30-5.90); RDW 15.3 % (11.5-15.5)
[2018-06-06 07:16] LABS: Calcium 8.6 mg/dL (8.4-10.2); Potassium 4.5 mmol/L (3.5-5.1)
--- NOTE | 2018-06-06 08:24 | P.PN ---
Subjective Progress Note Date: 06/06/18 The patient accidentally pulled the catheter out. He is unable to urinate. The catheters been replaced.` The patient will probably need lower tract evaluation including cystoscopy as an outpatient. Objective - Vital Signs Vital signs: Vital Signs Temp 98 F 06/05/18 20:00 Pulse 108 H 06/06/18 04:00 Resp 20 06/06/18 04:00 BP 121/85 06/06/18 04:00 Pulse Ox 95 06/06/18 04:00 Intake & Output 06/05/18 06/06/18 06/06/18 18:59 06:59 18:59 Intake Total 1200 1000 Output Total 1500 1675 Balance -300 -675 Weight 145 kg Intake: Oral 1200 1000 Output: Urine 1500 1675 Other: Voiding Method Indwelling Catheter Urinal - Labs CBC & Chem 7: 06/06/18 06:26 06/06/18 06:26 Labs: Abnormal Lab Results - Last 24 Hours (Table) 06/05/18 06/05/18 06/05/18 Range/Units 11:43 16:20 20:36 RBC (4.30-5.90) m/uL Hgb (13.0-17.5) gm/dL Hct (39.0-53.0) % Chloride (98-107) mmol/L Carbon Dioxide (22-30) mmol/L BUN (9-20) mg/dL Creatinine (0.66-1.25) mg/dL Glucose (74-99) mg/dL POC Glucose (mg/dL) 143 H 138 H 146 H (75-99) mg/dL 06/05/18 06/05/18 06/06/18 Range/Units 23:42 23:42 05:46 RBC 2.30 L (4.30-5.90) m/uL Hgb 7.3 L (13.0-17.5) gm/dL Hct 23.0 L (39.0-53.0) % Chloride 111 H (98-107) mmol/L Carbon Dioxide 21 L (22-30) mmol/L BUN 59 H (9-20) mg/dL Creatinine 2.70 H (0.66-1.25) mg/dL Glucose 110 H (74-99) mg/dL POC Glucose (mg/dL) 160 H (75-99) mg/dL 06/06/18 06/06/18 Range/Units 06:26 06:26 RBC 2.35 L (4.30-5.90) m/uL Hgb 7.4 L (13.0-17.5) gm/dL Hct 23.5 L (39.0-53.0) % Chloride 112 H (98-107) mmol/L Carbon Dioxide (22-30) mmol/L BUN 59 H (9-20) mg/dL Creatinine 2.84 H (0.66-1.25) mg/dL Glucose 123 H (74-99) mg/dL POC Glucose (mg/dL) (75-99) mg/dL Microbiology - Last 24 Hours (Table) 06/02/18 17:30 Gram Stain - Preliminary Lung Aspirate - Left Tissue Culture - Preliminary Kaur albicans
[2018-06-06] MEDS: ALLOPURINOL 300 MG TAB PO SCH (08:51)
[2018-06-06] MEDS: GABAPENTIN 100 MG CAP PO SCH ×2 (08:52→19:56)
[2018-06-06] MEDS: DULoxetine HCL 60 MG CAPSULE.DR PO SCH (08:52)
[2018-06-06] MEDS: TAMSULOSIN 0.4 MG CAP.ER.24H PO SCH (08:52)
[2018-06-06] MEDS: hydrALAZINE HCL 50 MG TAB PO SCH ×3 (08:52→19:56)
[2018-06-06] MEDS: DOCUSATE 100 MG CAP PO SCH ×2 (08:53→19:57)
[2018-06-06] MEDS: PANTOPRAZOLE 40 MG TABLET PO SCH ×2 (08:53→19:56)
[2018-06-06] MEDS: ASPIRIN 81 MG PO SCH (08:53)
--- NOTE | 2018-06-06 10:51 | P.PN ---
Subjective 73 years old male with past medical history of atrial fibrillation, congestive heart failure, diabetes mellitus, hypertension, hyperlipidemia, coronary artery disease, lumbosacral radiculopathy at L5. Morbid obesity. History of gout. Recurrent falls. history of pneumonia and hypothyroidism. This is status post CABG. He presents to [facility] because he fell as per documentation. At baseline he walks using a walker. Patient denies loss of consciousness. No headache. As per documentation he gained about 10 pounds of weight. He has significant swelling of his lower extremity recently. Patient also presents with urinary retention and hematuria. He has also A. fib with RVR , as per EKG his heart rate was 127 Patient denies to me any headache. No chest pain. Mildly dyspneic/tachypneic. His confident with no specific phlegm. He does not use oxygen at home. Vital signs at [facility] were stable. Labs at [facility] were as follow: INR 1.5 function tests within normal limits. CPK 102. WBC 8.8. Hemoglobin 9.5. Platelets 1H. BNP 380. Glucose 85. Creatinine high at 2.9, compared to baseline around 1. Potassium 4.5. Venous Doppler showing no evidence of DVT . Chest x-ray suspicious for right upper lobe pneumonia as per radiologist's report 06/03/2018 pt is lying in chain , no in distress. still has hematuria from his bell , he has epistaxis from his left nostril that needed ENT to pack it. cardiology follow up is appreciated. pt remains on blood thinner, however it was discontinued today as per cardiology recommendation , his Hb is stable at 9.2. no leukocytosis , sugar is controlled. CXR: no CHF. cr is trending down 3.0 to 2.6. got lasix today by nephrology recommendation, Physical therapy evaluated pt since he came with fall, and they recommended home with no therapy. 06/04/2018 Patient lying in bed with no chest pain or dyspnea. Patient still have hematuria. Patient hemoglobin dropped from 9.2 to 8.5 However his Bell catheter was leaking and was just exchanged. Patient has dull left nasal pack. No abdominal pain. On nausea or vomiting. No fluid or more diuretics. Patient encouraged for oral intake. IV iron is provided for 3 days. Patient Eliquis is on hold as per cardiology recommendation and change Coreg to metoprolol. Patient remains on Rocephin and doxycycline for right upper lobe pneumonia. Consultants from cardiology's last nephrology and infectious disease teams are appreciated. Sugars: Folds. And his creatinine went up from 2.6 to 2.9. 06/05/18 pt is lying in bed , not in distress. he still has red urine but is clearing up , bell still in place. today pt got third dose of iv iron today. pt is on ceftriaxone and doxycycline. no leukocytosis and cr is improving slightly from 2.9 to 2.7. sugar is controlled 06/06/2018 Patient's antiplatelet therapy and anti-coagulation are being held because of the nosebleeds ENT is evaluating the patient. Objective - Vital Signs Vital signs: Vital Signs Temp 98 F 06/05/18 20:00 Pulse 108 H 06/06/18 04:00 Resp 20 06/06/18 04:00 BP 121/85 06/06/18 04:00 Pulse Ox 95 06/06/18 04:00 Intake & Output 06/05/18 06/06/18 06/06/18 18:59 06:59 18:59 Intake Total 1200 1000 Output Total 1500 1675 Balance -300 -675 Weight 145 kg Intake: Oral 1200 1000 Output: Urine 1500 1675 Other: Voiding Method Indwelling Catheter Urinal - Exam GENERAL: The patient is alert and oriented x3, not in any acute distress. Well developed, well nourished. HEENT: Pupils are round and equally reacting to light. EOMI. No scleral icterus. No conjunctival pallor. Normocephalic, atraumatic. No pharyngeal erythema. No thyromegaly. CARDIOVASCULAR: S1 and S2 present. No murmurs, rubs, or gallops. PULMONARY: Chest is clear to auscultation, no wheezing or crackles. ABDOMEN: Soft, nontender, nondistended, normoactive bowel sounds. No palpable organomegaly. -Urogenital: Patient has Bell catheter in place with red urine in the bag. MUSCULOSKELETAL: No joint swelling or deformity. -EXTREMITIES: No cyanosis, clubbing, bilateral pedal edema. NEUROLOGICAL: Gross neurological examination did not reveal any focal deficits. SKIN: No rashes. - Labs CBC & Chem 7: 06/06/18 06:26 06/06/18 06:26 Labs: Abnormal Lab Results - Last 24 Hours (Table) 06/05/18 06/05/18 06/05/18 Range/Units 11:43 16:20 20:36 RBC (4.30-5.90) m/uL Hgb (13.0-17.5) gm/dL Hct (39.0-53.0) % Chloride (98-107) mmol/L Carbon Dioxide (22-30) mmol/L BUN (9-20) mg/dL Creatinine (0.66-1.25) mg/dL Glucose (74-99) mg/dL POC Glucose (mg/dL) 143 H 138 H 146 H (75-99) mg/dL 06/05/18 06/05/18 06/06/18 Range/Units 23:42 23:42 05:46 RBC 2.30 L (4.30-5.90) m/uL Hgb 7.3 L (13.0-17.5) gm/dL Hct 23.0 L (39.0-53.0) % Chloride 111 H (98-107) mmol/L Carbon Dioxide 21 L (22-30) mmol/L BUN 59 H (9-20) mg/dL Creatinine 2.70 H (0.66-1.25) mg/dL Glucose 110 H (74-99) mg/dL POC Glucose (mg/dL) 160 H (75-99) mg/dL 06/06/18 06/06/18 Range/Units 06:26 06:26 RBC 2.35 L (4.30-5.90) m/uL Hgb 7.4 L (13.0-17.5) gm/dL Hct 23.5 L (39.0-53.0) % Chloride 112 H (98-107) mmol/L Carbon Dioxide (22-30) mmol/L BUN 59 H (9-20) mg/dL Creatinine 2.84 H (0.66-1.25) mg/dL Glucose 123 H (74-99) mg/dL POC Glucose (mg/dL) (75-99) mg/dL Microbiology - Last 24 Hours (Table) 06/02/18 17:30 Gram Stain - Preliminary Lung Aspirate - Left Tissue Culture - Preliminary Kaur albicans Assessment and Plan Plan: -Atrial fibrillation: Presently rate controlled anti-coagulation is on hold because of above-mentioned reasons -Hematuria urinary attention -20 today quite pneumonia -Type 2 diabetes mellitus -Hypertension -Hyperlipidemia -Acute blood loss anemia from hematuria nosebleeds -epistaxis due to above-mentioned reasons -Chronic kidney disease stage IV: Metformin was discontinued
--- NOTE | 2018-06-06 11:42 | PN ---
PROGRESS NOTE CHIEF COMPLAINT: Left side epistaxis. HISTORY: This patient had left posterior epistaxis earlier this week. A posterior pack was placed on the left. This has controlled his bleeding. He was on Eliquis until yesterday and is now off of the Eliquis, but still on aspirin. He has also had some ongoing hematuria. His vital signs have been stable. He has been on mask oxygen. PHYSICAL EXAM: The right nasal cavity is unremarkable. Left nasal cavity he has a balloon pack in place. It is set to dry anteriorly. The cuff was deflated and was removed. There was some old blood on the lateral aspect of the pack. Intranasal exam shows mild bleeding of the inferior turbinate on the left. This required cauterization with silver nitrate. This controlled the bleeding. No further bleeding was noted anteriorly or posteriorly. Oropharynx shows no blood. ASSESSMENT: 1. Left post epistaxis. 2. Anticoagulation status. PLAN: The patient will avoid nose blowing for one week. MMODL / IJN: [id number] /
[2018-06-06 12:03] LABS: Glucose,Whole Blood 126 mg/dL (75-99)
--- NOTE | 2018-06-06 12:27 | P.PN ---
Subjective Patient is seen in follow-up for acute kidney injury on chronic kidney disease. Creatinine staying in the range of 2.7-2.8.. 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 He is nonoliguric. He pulled out his Melchor catheter last night by accident. Denies chest pain. Patient remains in A. fib. Oral intake is good. No vomiting or diarrhea. Vital signs are stable. General: The patient appeared well nourished and normally developed. HEENT: Head exam is unremarkable. Neck is without jugular venous distension. LUNGS: Lungs are clear to auscultation and percussion. Breath sounds decreased. HEART: Rate and Rhythm are regular. First and second heart sounds normal. No murmurs, rubs or gallops. ABDOMEN: Abdominal exam reveals normal bowel sounds. Non-tender and non- distended. No evidence of peritonitis. EXTREMITITES: 1+ edema in the right lower extremity. Chronic skin changes noted in the left lower extremity. Objective - Vital Signs Vital signs: Vital Signs Temp 98.3 F 06/06/18 08:40 Pulse 98 06/06/18 08:40 Resp 20 06/06/18 08:40 BP 148/84 06/06/18 08:40 Pulse Ox 97 06/06/18 08:40 Intake & Output 06/05/18 06/06/18 06/06/18 18:59 06:59 18:59 Intake Total 1200 1000 Output Total 1500 1675 Balance -300 -675 Weight 145 kg Intake: Oral 1200 1000 Output: Urine 1500 1675 Other: Voiding Method Indwelling Catheter Urinal Urinal - Labs CBC & Chem 7: 06/06/18 06:26 06/06/18 06:26 Labs: Abnormal Lab Results - Last 24 Hours (Table) 06/05/18 06/05/18 06/05/18 Range/Units 16:20 20:36 23:42 RBC 2.30 L (4.30-5.90) m/uL Hgb 7.3 L (13.0-17.5) gm/dL Hct 23.0 L (39.0-53.0) % Chloride (98-107) mmol/L Carbon Dioxide (22-30) mmol/L BUN (9-20) mg/dL Creatinine (0.66-1.25) mg/dL Glucose (74-99) mg/dL POC Glucose (mg/dL) 138 H 146 H (75-99) mg/dL 06/05/18 06/06/18 06/06/18 Range/Units 23:42 05:46 06:26 RBC (4.30-5.90) m/uL Hgb (13.0-17.5) gm/dL Hct (39.0-53.0) % Chloride 111 H 112 H (98-107) mmol/L Carbon Dioxide 21 L (22-30) mmol/L BUN 59 H 59 H (9-20) mg/dL Creatinine 2.70 H 2.84 H (0.66-1.25) mg/dL Glucose 110 H 123 H (74-99) mg/dL POC Glucose (mg/dL) 160 H (75-99) mg/dL 06/06/18 06/06/18 Range/Units 06:26 11:44 RBC 2.35 L (4.30-5.90) m/uL Hgb 7.4 L (13.0-17.5) gm/dL Hct 23.5 L (39.0-53.0) % Chloride (98-107) mmol/L Carbon Dioxide (22-30) mmol/L BUN (9-20) mg/dL Creatinine (0.66-1.25) mg/dL Glucose (74-99) mg/dL POC Glucose (mg/dL) 126 H (75-99) mg/dL Microbiology - Last 24 Hours (Table) 06/02/18 17:30 Gram Stain - Preliminary Lung Aspirate - Left Tissue Culture - Preliminary Kaur albicans Assessment and Plan Plan: Assessment: 1. Acute kidney injury secondary to ATN secondary to hemodynamic instability and hypovolemia from diuretics. There is also component of urinary retention and obstructive uropathy. Additionally he was on Bactrim which is now held. Bactrim will impair creatinine secretion and will falsely elevate creatinine levels. Creatinine 3 on admission and now staying in the range of 2.7-2.8. 2. Chronic kidney disease stage II secondary to solitary left kidney. Baseline creatinine near 1. 3. Urinary retention status post Melchor catheter placement. Patient removed it by accident last night. Urology following. 4. Anemia. iron deficiency noted. Status post 3 doses of IV iron completed June 05. 5. A. fib with RVR. Cardiology following. Anticoagulation held. 6. Diabetes mellitus. 7. History of right-sided nephrectomy in 1987. 8. Enlarged left kidney with multiple cysts. This is suggestive of polycystic kidney disease. Patient denies family history of renal disease. 9. Pyuria. Urine culture negative so far. 10. Pneumonia maintained on antibiotics. Infectious disease following. 11. Hydronephrosis in the left kidney. Urology following. Plan for cystoscopy in the near future. Plan: Monitor postvoid residuals. Maintain Flomax. Encouraged oral intake. Continue to hold losartan for now. Maintain current antihypertensives.
--- NOTE | 2018-06-06 13:11 | P.PN ---
Subjective Progress Note Date: 06/06/18 Principal diagnosis: Atrial fibrillation with rapid ventricular response This is a pleasant 73-year-old gentleman who I follow at [facility] with a past medical history significant for paroxysmal atrial fibrillation on oral anticoagulation, hypertension, chronic kidney disease, known solitary kidney, diabetes, as well as multiple comorbid conditions was transferred from [facility] into [facility] after he was diagnosed was atrial fibrillation with RVR and was found to be in acute renal failure. I'll follow-up with him today, he is feeling overall better. Denies having any chest pain or chest discomfort. He continues to be in atrial fibrillation with a heart rate around 110 beats per minutes. For some reason the metoprolol was dropped from his medications. I am going to restart him back on metoprolol at 50 mg by mouth 3 times a day. Anticoagulation is on hold at this point in view of the acute renal failure as well as bleeding with hematuria and nosebleed. Nephrology is following the patient as well regarding the acute on chronic renal failure. Objective - Vital Signs Vital signs: Vital Signs Temp 98.3 F 06/06/18 08:40 Pulse 98 06/06/18 08:40 Resp 20 06/06/18 08:40 BP 148/84 06/06/18 08:40 Pulse Ox 97 06/06/18 08:40 Intake & Output 06/05/18 06/06/18 06/06/18 18:59 06:59 18:59 Intake Total 1200 1000 Output Total 1500 1675 Balance -300 -675 Weight 145 kg Intake: Oral 1200 1000 Output: Urine 1500 1675 Other: Voiding Method Indwelling Catheter Urinal Urinal - Constitutional General appearance: Present: no acute distress - Respiratory Respiratory: bilateral: CTA - Cardiovascular Rhythm: irregularly irregular Heart sounds: normal: S1, S2 - Labs CBC & Chem 7: 06/06/18 06:26 06/06/18 06:26 Labs: Abnormal Lab Results - Last 24 Hours (Table) 06/05/18 06/05/18 06/05/18 Range/Units 16:20 20:36 23:42 RBC 2.30 L (4.30-5.90) m/uL Hgb 7.3 L (13.0-17.5) gm/dL Hct 23.0 L (39.0-53.0) % Chloride (98-107) mmol/L Carbon Dioxide (22-30) mmol/L BUN (9-20) mg/dL Creatinine (0.66-1.25) mg/dL Glucose (74-99) mg/dL POC Glucose (mg/dL) 138 H 146 H (75-99) mg/dL 06/05/18 06/06/18 06/06/18 Range/Units 23:42 05:46 06:26 RBC (4.30-5.90) m/uL Hgb (13.0-17.5) gm/dL Hct (39.0-53.0) % Chloride 111 H 112 H (98-107) mmol/L Carbon Dioxide 21 L (22-30) mmol/L BUN 59 H 59 H (9-20) mg/dL Creatinine 2.70 H 2.84 H (0.66-1.25) mg/dL Glucose 110 H 123 H (74-99) mg/dL POC Glucose (mg/dL) 160 H (75-99) mg/dL 06/06/18 06/06/18 Range/Units 06:26 11:44 RBC 2.35 L (4.30-5.90) m/uL Hgb 7.4 L (13.0-17.5) gm/dL Hct 23.5 L (39.0-53.0) % Chloride (98-107) mmol/L Carbon Dioxide (22-30) mmol/L BUN (9-20) mg/dL Creatinine (0.66-1.25) mg/dL Glucose (74-99) mg/dL POC Glucose (mg/dL) 126 H (75-99) mg/dL Microbiology - Last 24 Hours (Table) 06/02/18 17:30 Gram Stain - Preliminary Lung Aspirate - Left Tissue Culture - Preliminary Kaur albicans Assessment and Plan Assessment: Assessment #1 atrial fibrillation with rapid ventricular response #2 known paroxysmal atrial fibrillation #3 acute on chronic renal failure #4 known solitary kidney #5 multiple comorbid conditions Plan #1 restart the patient back on metoprolol into 50 mg by mouth 3 times a day #2 continue holding the oral anticoagulation #3 continue monitor the kidney function and electrolytes #4 follow-up with the patient.
--- NOTE | 2018-06-06 15:04 | P.PN ---
Subjective Progress Note Date: 06/06/18 The patient's catheter is now out. He is voiding. His residual is moderate at 380 mL but he is not feel fullness. He is on Flomax. We will continue to observe him. He'll need to be seen as an outpatient. Objective - Vital Signs Vital signs: Vital Signs Temp 98.3 F 06/06/18 08:40 Pulse 98 06/06/18 08:40 Resp 20 06/06/18 08:40 BP 148/84 06/06/18 08:40 Pulse Ox 97 06/06/18 08:40 Intake & Output 06/05/18 06/06/18 06/06/18 18:59 06:59 18:59 Intake Total 1200 1000 480 Output Total 1500 1675 Balance -300 -675 480 Weight 145 kg Intake: Oral 1200 1000 480 Output: Urine 1500 1675 Other: Voiding Method Indwelling Catheter Urinal Urinal # Bowel Movements 1 - Labs CBC & Chem 7: 06/06/18 06:26 06/06/18 06:26 Labs: Abnormal Lab Results - Last 24 Hours (Table) 06/05/18 06/05/18 06/05/18 Range/Units 16:20 20:36 23:42 RBC 2.30 L (4.30-5.90) m/uL Hgb 7.3 L (13.0-17.5) gm/dL Hct 23.0 L (39.0-53.0) % Chloride (98-107) mmol/L Carbon Dioxide (22-30) mmol/L BUN (9-20) mg/dL Creatinine (0.66-1.25) mg/dL Glucose (74-99) mg/dL POC Glucose (mg/dL) 138 H 146 H (75-99) mg/dL 06/05/18 06/06/18 06/06/18 Range/Units 23:42 05:46 06:26 RBC (4.30-5.90) m/uL Hgb (13.0-17.5) gm/dL Hct (39.0-53.0) % Chloride 111 H 112 H (98-107) mmol/L Carbon Dioxide 21 L (22-30) mmol/L BUN 59 H 59 H (9-20) mg/dL Creatinine 2.70 H 2.84 H (0.66-1.25) mg/dL Glucose 110 H 123 H (74-99) mg/dL POC Glucose (mg/dL) 160 H (75-99) mg/dL 06/06/18 06/06/18 Range/Units 06:26 11:44 RBC 2.35 L (4.30-5.90) m/uL Hgb 7.4 L (13.0-17.5) gm/dL Hct 23.5 L (39.0-53.0) % Chloride (98-107) mmol/L Carbon Dioxide (22-30) mmol/L BUN (9-20) mg/dL Creatinine (0.66-1.25) mg/dL Glucose (74-99) mg/dL POC Glucose (mg/dL) 126 H (75-99) mg/dL Microbiology - Last 24 Hours (Table) 06/02/18 17:30 Gram Stain - Preliminary Lung Aspirate - Left Tissue Culture - Preliminary Kaur albicans
[2018-06-06 16:52] LABS: Glucose,Whole Blood 128 mg/dL (75-99)
[2018-06-06] MEDS: METOPROLOL TARTRATE 50 MG TAB PO SCH ×2 (17:09→19:56)
[2018-06-06] MEDS: ATORVASTATIN 20 MG TAB PO SCH (19:56)
[2018-06-06 21:05] LABS: Glucose,Whole Blood 147 mg/dL (75-99)
--- NOTE | 2018-06-06 23:57 | PN ---
PROGRESS NOTE DATE OF SERVICE: 06/06/2018. REASON FOR FOLLOWUP: Pneumonia. INTERVAL HISTORY: The patient is afebrile. He is breathing comfortably on room air now. Denies having any chest pain. Minimal cough, not bringing up any sputum. No abdominal pain, no diarrhea. EXAMINATION: Blood pressure is 116/71 with a pulse of 79, temperature 97.5. He is 92% on room air. GENERAL DESCRIPTION: An elderly male lying in bed in no distress. RESPIRATORY SYSTEM: Unlabored breathing with decreased breath sounds. No wheeze. HEART: S1, S2. Regular rate and rhythm. ABDOMEN: Soft, no tenderness. LABS: Hemoglobin 7.4, white count 6.0, BUN of 59, creatinine is 2.84. DIAGNOSTIC IMPRESSION AND PLAN: Plan patient hospital with multiple comorbidities, also with abnormal normal. Patient with concern for possible pneumonia. The patient seems to have shown clinical improvement on Rocephin and doxy. May finish therapy with short course of Ceftin on discharge. Continue supportive care. MMODL / IJN: [id number] /
[2018-06-07] MEDS: DOXYCYCLINE 100 MG in SODIUM CHLORIDE 0.9% 100 ML IVPB SCH ×2 (05:56→17:28)
[2018-06-07] MEDS: LEVOTHYROXINE 50 MCG TAB PO SCH (05:56)
[2018-06-07 06:00] LABS: Glucose,Whole Blood 158 mg/dL (75-99)
[2018-06-07] MEDS: INSULIN ASPART 100 UNIT/ML 1 ML 10 ML VIAL SQ SCH ×4 (06:39→21:22)
[2018-06-07 08:02] LABS: HGB 7.6 gm/dL (13.0-17.5); Hypochromasia Moderate; MCHC 31.7 g/dL (31.0-37.0); MCV 101.2 fL (80.0-100.0); Macrocytosis Slight; Mean Platelet Volume 7.9; Platelet Count 245 k/uL (150-450); RBC 2.37 m/uL (4.30-5.90); RDW 15.4 % (11.5-15.5); WBC 7.8 k/uL (3.8-10.6)
[2018-06-07 08:19] LABS: Calcium 8.8 mg/dL (8.4-10.2); Potassium 5.3 mmol/L (3.5-5.1)
[2018-06-07] MEDS: ALLOPURINOL 300 MG TAB PO SCH (09:22)
[2018-06-07] MEDS: DOCUSATE 100 MG CAP PO SCH ×2 (09:22→20:29)
[2018-06-07] MEDS: DULoxetine HCL 60 MG CAPSULE.DR PO SCH (09:22)
[2018-06-07] MEDS: GABAPENTIN 100 MG CAP PO SCH ×2 (09:22→20:29)
[2018-06-07] MEDS: ASPIRIN 81 MG PO SCH (09:23)
[2018-06-07] MEDS: hydrALAZINE HCL 50 MG TAB PO SCH ×3 (09:23→20:29)
[2018-06-07] MEDS: METOPROLOL TARTRATE 50 MG TAB PO SCH ×3 (09:25→20:29)
[2018-06-07] MEDS: TAMSULOSIN 0.4 MG CAP.ER.24H PO SCH (09:25)
[2018-06-07] MEDS: PANTOPRAZOLE 40 MG TABLET PO SCH ×2 (09:26→20:29)
--- NOTE | 2018-06-07 11:33 | P.PN ---
Subjective Progress Note Date: 06/07/18 This is a pleasant 73-year-old gentleman who follows with Dr. Toure in the office. He has a known history of diabetes, hypertension, hyperlipidemia , obesity, prior vascular surgery in the left leg with evidence of chronic edema. He was a transfer here from [facility]. Patient presented to [facility] with mainly complaints of pain in his left leg with associated significant increase in swelling in that leg. He states that he's had at least a 10 pound weight gain in the past one week. Patient does complain of mild shortness of breath but states that he is always somewhat short of breath with minimal exertion. Patient states that he also experienced a fall, denies any syncope, just states that he couldn't use his left foot. Patient also states that he recently had a left lower extremity venous Doppler study which was negative for any DVT. He has a chronic indwelling catheter which was recently placed because of urinary retention, there is some blood noted in his urine this morning. Patient does have a prior history of nicotine dependence and also has history of hypothyroidism, history of aortic aneurysm repair, aortobifemoral surgery and nephrectomy. Laboratory data performed at [facility] was reviewed, sodium 137, potassium 4.5, BUN 44, creatinine 2.9. BNP level 380, white blood cell count 8.8, hemoglobin 9.5, platelet count 180. EKG shows atrial fibrillation with a rapid ventricular response, heart rate 127. According to the patient, he has been told to have an irregular heartbeat and was on Eliquis for anticoagulation at home. Blood pressure 134/60 with a heart rate of 100 this morning, 93% on 4 L of oxygen. Sodium this morning 142, potassium 4.5, BUN 46, creatinine 3.0, troponin 0.020. Patient's creatinine on April 26 of this year was 0.8. At the time of my examination this morning, patient feels well, no complaints, still having some mild discomfort in his left leg. 06/03/2018 Patient was seen and examined this morning, he had a few episodes of epistaxis passing large clots, he was also having significant hematuria passing clots as well,he has been in and out of atrial fibrillation today through most of the day. Currently in normal sinus rhythm.blood pressure 138/60 with a heart rate in the 80s, 94% on room air.White blood cell count 8.4, hemoglobin 9.2, platelet count 196.patient had been on Eliquis, we will discontinue it at this time. Repeat an H&H this afternoon . 06/04/2018 Patient was seen and examined this morning, continues to have hematuria, no further epistaxis. Hemoglobin today 8.5. Continues to be in and out of atrial fibrillation.blood pressure 126/80, heart rate in the 80s to the 120s. Sodium 141, potassium 4.5, BUN 60, creatinine 2.9, magnesium 1.9. 06/07/2018 Patient was seen and examined this morning, sitting up in the chair at bedside. Feels well overall. Breathing is stable. Continues to be in atrial fibrillation, heart rate 70s to 90s.White blood cell count 7.8, hemoglobin 7.6, platelet count 245. Sodium 140, potassium 5.3, BUN 57, creatinine 2.6. Objective - Vital Signs Vital signs: Vital Signs Temp 97.4 F L 06/07/18 08:00 Pulse 90 06/07/18 08:00 Resp 18 06/07/18 08:00 BP 141/87 06/07/18 08:00 Pulse Ox 98 06/07/18 08:00 Intake & Output 06/06/18 06/07/18 06/07/18 18:59 06:59 18:59 Intake Total 480 Output Total 200 950 300 Balance 280 -950 -300 Weight 145 kg Intake: Oral 480 Output: Urine 200 950 300 Other: Voiding Method Urinal Urinal Urinal # Bowel Movements 1 - Exam PHYSICAL EXAMINATION: GENERAL: 73-year-old gentleman in no acute distress at the time of my examination HEENT: Head is atraumatic, normocephalic. Pupils equal, round. Sclera anicteric. Conjunctiva are clear. Mucous membranes of the mouth are moist. Neck is supple. There is no elevated jugular venous pressure. No carotid bruit is heard. HEART EXAMINATION: Heart S1-S2 normal CHEST EXAMINATION: Lungs are clear diminished air entry to bilateral bases. ABDOMEN: Soft, obese, nontender. Bowel sounds are heard. No organomegaly noted. EXTREMITIES: 1+ peripheral pulses with evidence of 2-3+ peripheral edema in the left lower extremity, 1+ in the right lower extremity . NEUROLOGIC patient is awake, alert and oriented X3. - Labs CBC & Chem 7: 06/07/18 07:12 06/07/18 07:12 Labs: Abnormal Lab Results - Last 24 Hours (Table) 06/06/18 06/06/18 06/06/18 Range/Units 11:44 16:47 20:22 RBC (4.30-5.90) m/uL Hgb (13.0-17.5) gm/dL Hct (39.0-53.0) % MCV (80.0-100.0) fL Potassium (3.5-5.1) mmol/L Chloride (98-107) mmol/L BUN (9-20) mg/dL Creatinine (0.66-1.25) mg/dL Glucose (74-99) mg/dL POC Glucose (mg/dL) 126 H 128 H 147 H (75-99) mg/dL 06/07/18 06/07/18 06/07/18 Range/Units 05:55 07:12 07:12 RBC 2.37 L (4.30-5.90) m/uL Hgb 7.6 L (13.0-17.5) gm/dL Hct 24.0 L (39.0-53.0) % MCV 101.2 H (80.0-100.0) fL Potassium 5.3 H (3.5-5.1) mmol/L Chloride 111 H (98-107) mmol/L BUN 57 H (9-20) mg/dL Creatinine 2.63 H (0.66-1.25) mg/dL Glucose 110 H (74-99) mg/dL POC Glucose (mg/dL) 158 H (75-99) mg/dL Microbiology - Last 24 Hours (Table) 06/02/18 17:30 Gram Stain - Preliminary Lung Aspirate - Left Tissue Culture - Preliminary Kaur albicans Kaur glabrata Gram Positive Bacilli Isolated Coagulase Negative Staph Alpha Hemolytic Streptococcus Assessment and Plan Plan: Assessment and plan #1 atrial fibrillation with rapid ventricular response, paroxysmal, on Eliquis for anticoagulation #2 acute renal failure #3 diabetes #4 hypertension #5 hyperlipidemia #6 chronic left lower extremity edema, appears to be worse according to the patient, associated pain. #7 obesity #8 prior history of smoking #9 hypothyroidism #10 prior nephrectomy #11 aortic aneurysm repair #12 bilateral fem-pop Plan At this point we will continue to hold the patient's Eliquis. continue metoprolol 50 mg one tablet by mouth 3 times a day. DNP note has been reviewed, I agree with a documented findings and plan of care. Patient was seen and examined.
--- NOTE | 2018-06-07 11:36 | P.PN ---
Subjective 73 years old male with past medical history of atrial fibrillation, congestive heart failure, diabetes mellitus, hypertension, hyperlipidemia, coronary artery disease, lumbosacral radiculopathy at L5. Morbid obesity. History of gout. Recurrent falls. history of pneumonia and hypothyroidism. This is status post CABG. He presents to [facility] because he fell as per documentation. At baseline he walks using a walker. Patient denies loss of consciousness. No headache. As per documentation he gained about 10 pounds of weight. He has significant swelling of his lower extremity recently. Patient also presents with urinary retention and hematuria. He has also A. fib with RVR , as per EKG his heart rate was 127 Patient denies to me any headache. No chest pain. Mildly dyspneic/tachypneic. His confident with no specific phlegm. He does not use oxygen at home. Vital signs at [facility] were stable. Labs at [facility] were as follow: INR 1.5 function tests within normal limits. CPK 102. WBC 8.8. Hemoglobin 9.5. Platelets 1H. BNP 380. Glucose 85. Creatinine high at 2.9, compared to baseline around 1. Potassium 4.5. Venous Doppler showing no evidence of DVT . Chest x-ray suspicious for right upper lobe pneumonia as per radiologist's report 06/03/2018 pt is lying in chain , no in distress. still has hematuria from his bell , he has epistaxis from his left nostril that needed ENT to pack it. cardiology follow up is appreciated. pt remains on blood thinner, however it was discontinued today as per cardiology recommendation , his Hb is stable at 9.2. no leukocytosis , sugar is controlled. CXR: no CHF. cr is trending down 3.0 to 2.6. got lasix today by nephrology recommendation, Physical therapy evaluated pt since he came with fall, and they recommended home with no therapy. 06/04/2018 Patient lying in bed with no chest pain or dyspnea. Patient still have hematuria. Patient hemoglobin dropped from 9.2 to 8.5 However his Bell catheter was leaking and was just exchanged. Patient has dull left nasal pack. No abdominal pain. On nausea or vomiting. No fluid or more diuretics. Patient encouraged for oral intake. IV iron is provided for 3 days. Patient Eliquis is on hold as per cardiology recommendation and change Coreg to metoprolol. Patient remains on Rocephin and doxycycline for right upper lobe pneumonia. Consultants from cardiology's last nephrology and infectious disease teams are appreciated. Sugars: Folds. And his creatinine went up from 2.6 to 2.9. 06/05/18 pt is lying in bed , not in distress. he still has red urine but is clearing up , bell still in place. today pt got third dose of iv iron today. pt is on ceftriaxone and doxycycline. no leukocytosis and cr is improving slightly from 2.9 to 2.7. sugar is controlled 06/06/2018 Patient's antiplatelet therapy and anti-coagulation are being held because of the nosebleeds ENT is evaluating the patient. 06/07/2018 No overnight events no more nasal bleed, anticoagulation is on hold because of hematuria and nosebleed Constitutional: Denied any fatigue denied any fever. Cardio vascular: denied any chest pain, palpitations Gastrointestinal denied any nausea vomiting Pulmonary: Denied any shortness of breath cough Neurologic denied any new focal deficits Objective - Vital Signs Vital signs: Vital Signs Temp 97.4 F L 06/07/18 08:00 Pulse 90 06/07/18 08:00 Resp 18 06/07/18 08:00 BP 141/87 06/07/18 08:00 Pulse Ox 98 06/07/18 08:00 Intake & Output 06/06/18 06/07/18 06/07/18 18:59 06:59 18:59 Intake Total 480 Output Total 200 950 300 Balance 280 -950 -300 Weight 145 kg Intake: Oral 480 Output: Urine 200 950 300 Other: Voiding Method Urinal Urinal Urinal # Bowel Movements 1 - Exam GENERAL: The patient is alert and oriented x3, not in any acute distress. Well developed, well nourished. HEENT: Pupils are round and equally reacting to light. EOMI. No scleral icterus. No conjunctival pallor. Normocephalic, atraumatic. No pharyngeal erythema. No thyromegaly. CARDIOVASCULAR: S1 and S2 present. No murmurs, rubs, or gallops. PULMONARY: Chest is clear to auscultation, no wheezing or crackles. ABDOMEN: Soft, nontender, nondistended, normoactive bowel sounds. No palpable organomegaly. -Urogenital: Patient has Bell catheter in place with red urine in the bag. MUSCULOSKELETAL: No joint swelling or deformity. -EXTREMITIES: No cyanosis, clubbing, bilateral pedal edema. NEUROLOGICAL: Gross neurological examination did not reveal any focal deficits. SKIN: No rashes. - Labs CBC & Chem 7: 06/07/18 07:12 06/07/18 07:12 Labs: Abnormal Lab Results - Last 24 Hours (Table) 06/06/18 06/06/18 06/06/18 Range/Units 11:44 16:47 20:22 RBC (4.30-5.90) m/uL Hgb (13.0-17.5) gm/dL Hct (39.0-53.0) % MCV (80.0-100.0) fL Potassium (3.5-5.1) mmol/L Chloride (98-107) mmol/L BUN (9-20) mg/dL Creatinine (0.66-1.25) mg/dL Glucose (74-99) mg/dL POC Glucose (mg/dL) 126 H 128 H 147 H (75-99) mg/dL 06/07/18 06/07/18 06/07/18 Range/Units 05:55 07:12 07:12 RBC 2.37 L (4.30-5.90) m/uL Hgb 7.6 L (13.0-17.5) gm/dL Hct 24.0 L (39.0-53.0) % MCV 101.2 H (80.0-100.0) fL Potassium 5.3 H (3.5-5.1) mmol/L Chloride 111 H (98-107) mmol/L BUN 57 H (9-20) mg/dL Creatinine 2.63 H (0.66-1.25) mg/dL Glucose 110 H (74-99) mg/dL POC Glucose (mg/dL) 158 H (75-99) mg/dL Microbiology - Last 24 Hours (Table) 06/02/18 17:30 Gram Stain - Preliminary Lung Aspirate - Left Tissue Culture - Preliminary Kaur albicans Kaur glabrata Gram Positive Bacilli Isolated Coagulase Negative Staph Alpha Hemolytic Streptococcus Assessment and Plan Plan: -Atrial fibrillation: Presently rate controlled anti-coagulation is on hold because of above-mentioned reasons -Hematuria urinary attention - community-acquired pneumonia patient is on ceftriaxone and oxide cream which will be continued -Type 2 diabetes mellitus -Hypertension -Hyperlipidemia -Acute blood loss anemia from hematuria nosebleeds, improved now -epistaxis due to above-mentioned reasons -Chronic kidney disease stage IV: Metformin was discontinued
--- NOTE | 2018-06-07 11:44 | P.PN ---
Subjective Patient is seen in follow-up for acute kidney injury on chronic kidney disease. Creatinine staying in the range of 2.7-2.8 the last few days - 2.63 today. 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 He is nonoliguric. He pulled out his Melchor catheter by accident. He has been voiding. Denies chest pain. Heart rate controlled today. Oral intake is good. No vomiting or diarrhea. Vital signs are stable. General: The patient appeared well nourished and normally developed. HEENT: Head exam is unremarkable. Neck is without jugular venous distension. LUNGS: Lungs are clear to auscultation and percussion. Breath sounds decreased. HEART: Rate and Rhythm are regular. First and second heart sounds normal. No murmurs, rubs or gallops. ABDOMEN: Abdominal exam reveals normal bowel sounds. Non-tender and non- distended. No evidence of peritonitis. EXTREMITITES: 1+ edema in the right lower extremity. Chronic skin changes noted in the left lower extremity. Objective - Vital Signs Vital signs: Vital Signs Temp 97.4 F L 06/07/18 08:00 Pulse 90 06/07/18 08:00 Resp 18 06/07/18 08:00 BP 141/87 06/07/18 08:00 Pulse Ox 98 06/07/18 08:00 Intake & Output 06/06/18 06/07/18 06/07/18 18:59 06:59 18:59 Intake Total 480 Output Total 200 950 300 Balance 280 -950 -300 Weight 145 kg Intake: Oral 480 Output: Urine 200 950 300 Other: Voiding Method Urinal Urinal Urinal # Bowel Movements 1 - Labs CBC & Chem 7: 06/07/18 07:12 06/07/18 07:12 Labs: Abnormal Lab Results - Last 24 Hours (Table) 06/06/18 06/06/18 06/06/18 Range/Units 11:44 16:47 20:22 RBC (4.30-5.90) m/uL Hgb (13.0-17.5) gm/dL Hct (39.0-53.0) % MCV (80.0-100.0) fL Potassium (3.5-5.1) mmol/L Chloride (98-107) mmol/L BUN (9-20) mg/dL Creatinine (0.66-1.25) mg/dL Glucose (74-99) mg/dL POC Glucose (mg/dL) 126 H 128 H 147 H (75-99) mg/dL 06/07/18 06/07/18 06/07/18 Range/Units 05:55 07:12 07:12 RBC 2.37 L (4.30-5.90) m/uL Hgb 7.6 L (13.0-17.5) gm/dL Hct 24.0 L (39.0-53.0) % MCV 101.2 H (80.0-100.0) fL Potassium 5.3 H (3.5-5.1) mmol/L Chloride 111 H (98-107) mmol/L BUN 57 H (9-20) mg/dL Creatinine 2.63 H (0.66-1.25) mg/dL Glucose 110 H (74-99) mg/dL POC Glucose (mg/dL) 158 H (75-99) mg/dL Microbiology - Last 24 Hours (Table) 06/02/18 17:30 Gram Stain - Preliminary Lung Aspirate - Left Tissue Culture - Preliminary Kaur albicans Kaur glabrata Gram Positive Bacilli Isolated Coagulase Negative Staph Alpha Hemolytic Streptococcus Assessment and Plan Plan: Assessment: 1. Acute kidney injury secondary to ATN secondary to hemodynamic instability and hypovolemia from diuretics. There is also component of urinary retention and obstructive uropathy. Additionally he was on Bactrim which is now held. Bactrim will impair creatinine secretion and will falsely elevate creatinine levels. Creatinine 3 on admission and now staying in the range of 2.7-2.8. 2.63 today. 2. Chronic kidney disease stage II secondary to solitary left kidney. Baseline creatinine near 1. 3. Urinary retention status post Melchor catheter placement. Patient removed it by accident last night. Urology following. 4. Anemia. iron deficiency noted. Status post 3 doses of IV iron completed June 05. 5. A. fib with RVR. Cardiology following. Anticoagulation held. Heart rate better controlled today. 6. Diabetes mellitus. 7. History of right-sided nephrectomy in 1987. 8. Enlarged left kidney with multiple cysts. This is suggestive of polycystic kidney disease. Patient denies family history of renal disease. 9. Pyuria. Urine culture negative so far. 10. Pneumonia maintained on antibiotics. Infectious disease following. 11. Hydronephrosis in the left kidney. Urology following. Plan for cystoscopy in the near future. Plan: Monitor postvoid residuals. Maintain Flomax. Encouraged oral intake. Continue to hold losartan for now. Maintain current antihypertensives. Low potassium diet. Repeat electrolytes in the morning.
[2018-06-07 11:46] LABS: Glucose,Whole Blood 132 mg/dL (75-99)
[2018-06-07 16:41] LABS: Glucose,Whole Blood 171 mg/dL (75-99)
[2018-06-07] MEDS: ATORVASTATIN 20 MG TAB PO SCH (20:29)
[2018-06-07 21:21] LABS: Glucose,Whole Blood 119 mg/dL (75-99)
--- NOTE | 2018-06-08 00:19 | PN ---
PROGRESS NOTE DATE OF SERVICE: 06/07/2018. REASON FOR FOLLOWUP: Pneumonia. INTERVAL HISTORY: The patient is currently afebrile, has been breathing more comfortably. No significant chest pain. Very minimal cough. No nausea, vomiting, abdominal pain, or any diarrhea. EXAMINATION: Blood pressure is 121/68 with a pulse of 73. Temperature is 97.6. He is 96% on room air. General description is an elderly male lying in bed in no distress. Respiratory system: Unlabored breathing. Decreased breath sounds in the bases, with no wheeze. Heart S1, S2. Regular rate and rhythm. LABS: Hemoglobin 7.7, white count 7.8. BUN of 57, creatinine is 2.63. Sputum has been Kaur and . DIAGNOSTIC IMPRESSION AND PLAN: Patient admitted to the hospital with right-sided pneumonia. The patient is currently covered with Rocephin and doxycycline and has shown overall clinical improvement. Plan to finish therapy with oral Ceftin. Continue supportive care. MMODL / PETEYN: [id number] /
[2018-06-08] MEDS: DOXYCYCLINE 100 MG in SODIUM CHLORIDE 0.9% 100 ML IVPB SCH ×2 (06:18→18:12)
[2018-06-08] MEDS: INSULIN ASPART 100 UNIT/ML 1 ML 10 ML VIAL SQ SCH ×4 (06:18→22:04)
[2018-06-08] MEDS: LEVOTHYROXINE 50 MCG TAB PO SCH (06:19)
[2018-06-08 06:20] LABS: Glucose,Whole Blood 131 mg/dL (75-99)
[2018-06-08 06:54] LABS: Calcium 8.5 mg/dL (8.4-10.2); Potassium 5.5 mmol/L (3.5-5.1)
[2018-06-08] MEDS: TAMSULOSIN 0.4 MG CAP.ER.24H PO SCH (08:58)
[2018-06-08] MEDS: PANTOPRAZOLE 40 MG TABLET PO SCH ×2 (08:58→20:50)
[2018-06-08] MEDS: GABAPENTIN 100 MG CAP PO SCH ×2 (08:58→20:49)
[2018-06-08] MEDS: METOPROLOL TARTRATE 50 MG TAB PO SCH ×3 (08:58→22:39)
[2018-06-08] MEDS: hydrALAZINE HCL 50 MG TAB PO SCH ×3 (08:58→22:39)
[2018-06-08] MEDS: DOCUSATE 100 MG CAP PO SCH ×2 (08:59→20:49)
[2018-06-08] MEDS: DULoxetine HCL 60 MG CAPSULE.DR PO SCH (08:59)
[2018-06-08] MEDS: ALLOPURINOL 100 MG TAB PO SCH (09:02)
[2018-06-08 09:15] LABS: Basophils % (A) 0 %; Eosinophils # (A) 0.4 k/uL (0-0.7); Eosinophils % (A) 6 %; HCT 24.1 % (39.0-53.0); HGB 7.4 gm/dL (13.0-17.5); Hypochromasia Marked; Lymphocytes # (A) 1.5 k/uL (1.0-4.8); Lymphocytes % (A) 20 %; MCH 31.6 pg (25.0-35.0); MCHC 30.6 g/dL (31.0-37.0); MCV 103.2 fL (80.0-100.0); Macrocytosis Moderate; Mean Platelet Volume 8.5; Monocytes # (A) 0.6 k/uL (0-1.0); Monocytes % (A) 8 %; Neutrophils # (A) 4.7 k/uL (1.3-7.7); Neutrophils % (A) 64 %; Platelet Count 273 k/uL (150-450); RBC 2.33 m/uL (4.30-5.90); RDW 15.6 % (11.5-15.5); WBC 7.4 k/uL (3.8-10.6)
[2018-06-08] MEDS ORDERED: FUROSEMIDE 10 MG/ML 4 ML VIAL IV STA (11:55)
--- NOTE | 2018-06-08 11:56 | P.PN ---
Subjective Patient is seen in follow-up for acute kidney injury on chronic kidney disease. Creatinine staying in the range of 2.7-2.8 the last few days - 2.7 today. 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 He is nonoliguric. He pulled out his Melchor catheter by accident. He has been voiding. He did pass blood clots this morning in the urine. Better now. Denies chest pain. Heart rate controlled still on the higher side. Oral intake is good. No vomiting or diarrhea. Vital signs are stable. General: The patient appeared well nourished and normally developed. HEENT: Head exam is unremarkable. Neck is without jugular venous distension. LUNGS: Lungs are clear to auscultation and percussion. Breath sounds decreased. HEART: Rate and Rhythm are regular. First and second heart sounds normal. No murmurs, rubs or gallops. ABDOMEN: Abdominal exam reveals normal bowel sounds. Non-tender and non- distended. No evidence of peritonitis. EXTREMITITES: 1+ edema in the right lower extremity. Chronic skin changes noted in the left lower extremity. Objective - Vital Signs Vital signs: Vital Signs Temp 98.2 F 06/08/18 08:57 Pulse 111 H 06/08/18 08:57 Resp 20 06/08/18 08:57 BP 123/89 06/08/18 08:57 Pulse Ox 98 06/08/18 08:57 Intake & Output 06/07/18 06/08/18 06/08/18 18:59 06:59 18:59 Intake Total 340 400 Output Total 650 Balance -310 400 Weight 147.9 kg Intake: Oral 340 400 Output: Urine 650 Other: Voiding Method Urinal Urinal Urinal # Voids 2 # Bowel Movements 1 - Labs CBC & Chem 7: 06/08/18 06:09 06/08/18 06:09 Labs: Abnormal Lab Results - Last 24 Hours (Table) 06/07/18 06/07/18 06/08/18 Range/Units 16:37 21:19 06:09 RBC (4.30-5.90) m/uL Hgb (13.0-17.5) gm/dL Hct (39.0-53.0) % MCV (80.0-100.0) fL MCHC (31.0-37.0) g/dL RDW (11.5-15.5) % Potassium 5.5 H (3.5-5.1) mmol/L Chloride 109 H (98-107) mmol/L Carbon Dioxide 19 L (22-30) mmol/L BUN 66 H (9-20) mg/dL Creatinine 2.70 H (0.66-1.25) mg/dL Glucose 107 H (74-99) mg/dL POC Glucose (mg/dL) 171 H 119 H (75-99) mg/dL 06/08/18 06/08/18 Range/Units 06:09 06:18 RBC 2.33 L (4.30-5.90) m/uL Hgb 7.4 L (13.0-17.5) gm/dL Hct 24.1 L (39.0-53.0) % MCV 103.2 H (80.0-100.0) fL MCHC 30.6 L (31.0-37.0) g/dL RDW 15.6 H (11.5-15.5) % Potassium (3.5-5.1) mmol/L Chloride (98-107) mmol/L Carbon Dioxide (22-30) mmol/L BUN (9-20) mg/dL Creatinine (0.66-1.25) mg/dL Glucose (74-99) mg/dL POC Glucose (mg/dL) 131 H (75-99) mg/dL Microbiology - Last 24 Hours (Table) 06/02/18 17:30 Gram Stain - Final Lung Aspirate - Left Tissue Culture - Final Kaur albicans Kaur glabrata Gram Positive Bacilli Isolated Coagulase Negative Staph Alpha Hemolytic Streptococcus Assessment and Plan Plan: Assessment: 1. Acute kidney injury secondary to ATN secondary to hemodynamic instability and hypovolemia from diuretics. There is also component of urinary retention and obstructive uropathy. Additionally he was on Bactrim which is now held. Bactrim will impair creatinine secretion and will falsely elevate creatinine levels. Creatinine 3 on admission and now staying in the range of 2.7-2.8. 2.7 today. 2. Chronic kidney disease stage II secondary to solitary left kidney. Baseline creatinine near 1. 3. Urinary retention status post Melchor catheter placement. Patient removed it by accident. Urology following. 4. Anemia. iron deficiency noted. Status post 3 doses of IV iron completed June 05. 5. A. fib with RVR. Cardiology following. Anticoagulation held. 6. Diabetes mellitus. 7. History of right-sided nephrectomy in 1987. 8. Enlarged left kidney with multiple cysts. This is suggestive of polycystic kidney disease. Patient denies family history of renal disease. 9. Pyuria. Urine culture negative so far. 10. Pneumonia maintained on antibiotics. Infectious disease following. 11. Hydronephrosis in the left solitary kidney. Urology following. 12. Hyperkalemia secondary to acute kidney injury and metabolic acidosis. 13. Metabolic acidosis secondary to acute kidney injury. Plan: Monitor postvoid residuals. Maintain Flomax. Encouraged oral intake. Continue to hold losartan for now. Maintain current antihypertensives. Low potassium diet. Repeat electrolytes in the morning. Add sodium bicarbonate. 40 mg of Lasix once today. Follow-up chest x-ray. Repeat potassium level this evening. Discussed with urology for cystoscopy this admission.
[2018-06-08 12:00] LABS: Glucose,Whole Blood 125 mg/dL (75-99)
[2018-06-08] MEDS: SODIUM BICARBONATE TAB 650 MG TAB PO SCH ×2 (12:38→20:48)
--- NOTE | 2018-06-08 12:43 | XR ---
EXAMINATION TYPE: XR chest 1V DATE OF EXAM: 06/08/2018 COMPARISON: 06/03/2018 HISTORY: Shortness of breath and congestive heart failure. TECHNIQUE: Single frontal view of the chest is obtained. FINDINGS: There is improved aeration of the right hemithorax, however there is a persistent opacity within the retrocardiac airspace. Pulmonary vascular congestion has also improved. Enlargement of the cardiomediastinal silhouette remains. Extensive degenerative changes of the right glenohumeral joint and loose body are redemonstrated. IMPRESSION: Improved sequela of congestive heart failure. Persistent retrocardiac opacity may relate to trace pleural effusion with atelectasis or less likely pneumonia in the appropriate clinical sett ing.
[2018-06-08 12:45] LABS: HCT 22.7 % (39.0-53.0); HGB 7.3 gm/dL (13.0-17.5); Hypochromasia Moderate; MCH 32.7 pg (25.0-35.0); MCHC 32.3 g/dL (31.0-37.0); MCV 101.4 fL (80.0-100.0); Macrocytosis Slight; Mean Platelet Volume 8.1; Platelet Count 250 k/uL (150-450); RBC 2.24 m/uL (4.30-5.90); RDW 15.7 % (11.5-15.5); WBC 7.1 k/uL (3.8-10.6)
--- NOTE | 2018-06-08 13:15 | P.PN ---
Subjective Progress Note Date: 06/08/18 Still with some blood per urethra due to self removal of catheter and secondary trauma. It is aggravated by the anticoagulation. The patients cr remains high at 3 On us there is some hydronephrosis. I suspect this is due to chronic retention [incontinent wearing a condom cath] prior to this admission Dr Augustine and I discussed the situation and will order a ct scan of abdomen and pelvis He will also be set up for possible cysto with retrograde pyelograms tomorrow. Objective - Vital Signs Vital signs: Vital Signs Temp 97.2 F L 06/08/18 11:55 Pulse 129 H 06/08/18 11:55 Resp 18 06/08/18 11:55 BP 106/70 06/08/18 11:55 Pulse Ox 98 06/08/18 08:57 Intake & Output 06/07/18 06/08/18 06/08/18 18:59 06:59 18:59 Intake Total 340 400 Output Total 650 Balance -310 400 Weight 147.9 kg Intake: Oral 340 400 Output: Urine 650 Other: Voiding Method Urinal Urinal Urinal # Voids 2 # Bowel Movements 1 - Labs CBC & Chem 7: 06/08/18 06:09 06/08/18 06:09 Labs: Abnormal Lab Results - Last 24 Hours (Table) 06/07/18 06/07/18 06/08/18 Range/Units 16:37 21:19 06:09 RBC (4.30-5.90) m/uL Hgb (13.0-17.5) gm/dL Hct (39.0-53.0) % MCV (80.0-100.0) fL MCHC (31.0-37.0) g/dL RDW (11.5-15.5) % Potassium 5.5 H (3.5-5.1) mmol/L Chloride 109 H (98-107) mmol/L Carbon Dioxide 19 L (22-30) mmol/L BUN 66 H (9-20) mg/dL Creatinine 2.70 H (0.66-1.25) mg/dL Glucose 107 H (74-99) mg/dL POC Glucose (mg/dL) 171 H 119 H (75-99) mg/dL 06/08/18 06/08/18 06/08/18 Range/Units 06:09 06:18 11:46 RBC 2.33 L (4.30-5.90) m/uL Hgb 7.4 L (13.0-17.5) gm/dL Hct 24.1 L (39.0-53.0) % MCV 103.2 H (80.0-100.0) fL MCHC 30.6 L (31.0-37.0) g/dL RDW 15.6 H (11.5-15.5) % Potassium (3.5-5.1) mmol/L Chloride (98-107) mmol/L Carbon Dioxide (22-30) mmol/L BUN (9-20) mg/dL Creatinine (0.66-1.25) mg/dL Glucose (74-99) mg/dL POC Glucose (mg/dL) 131 H 125 H (75-99) mg/dL Microbiology - Last 24 Hours (Table) 06/02/18 17:30 Gram Stain - Final Lung Aspirate - Left Tissue Culture - Final Kaur albicans Kaur glabrata Gram Positive Bacilli Isolated Coagulase Negative Staph Alpha Hemolytic Streptococcus
--- NOTE | 2018-06-08 13:15 | P.PN ---
Subjective 73 years old male with past medical history of atrial fibrillation, congestive heart failure, diabetes mellitus, hypertension, hyperlipidemia, coronary artery disease, lumbosacral radiculopathy at L5. Morbid obesity. History of gout. Recurrent falls. history of pneumonia and hypothyroidism. This is status post CABG. He presents to [facility] because he fell as per documentation. At baseline he walks using a walker. Patient denies loss of consciousness. No headache. As per documentation he gained about 10 pounds of weight. He has significant swelling of his lower extremity recently. Patient also presents with urinary retention and hematuria. He has also A. fib with RVR , as per EKG his heart rate was 127 Patient denies to me any headache. No chest pain. Mildly dyspneic/tachypneic. His confident with no specific phlegm. He does not use oxygen at home. Vital signs at [facility] were stable. Labs at [facility] were as follow: INR 1.5 function tests within normal limits. CPK 102. WBC 8.8. Hemoglobin 9.5. Platelets 1H. BNP 380. Glucose 85. Creatinine high at 2.9, compared to baseline around 1. Potassium 4.5. Venous Doppler showing no evidence of DVT . Chest x-ray suspicious for right upper lobe pneumonia as per radiologist's report 06/03/2018 pt is lying in chain , no in distress. still has hematuria from his bell , he has epistaxis from his left nostril that needed ENT to pack it. cardiology follow up is appreciated. pt remains on blood thinner, however it was discontinued today as per cardiology recommendation , his Hb is stable at 9.2. no leukocytosis , sugar is controlled. CXR: no CHF. cr is trending down 3.0 to 2.6. got lasix today by nephrology recommendation, Physical therapy evaluated pt since he came with fall, and they recommended home with no therapy. 06/04/2018 Patient lying in bed with no chest pain or dyspnea. Patient still have hematuria. Patient hemoglobin dropped from 9.2 to 8.5 However his Bell catheter was leaking and was just exchanged. Patient has dull left nasal pack. No abdominal pain. On nausea or vomiting. No fluid or more diuretics. Patient encouraged for oral intake. IV iron is provided for 3 days. Patient Eliquis is on hold as per cardiology recommendation and change Coreg to metoprolol. Patient remains on Rocephin and doxycycline for right upper lobe pneumonia. Consultants from cardiology's last nephrology and infectious disease teams are appreciated. Sugars: Folds. And his creatinine went up from 2.6 to 2.9. 06/05/18 pt is lying in bed , not in distress. he still has red urine but is clearing up , bell still in place. today pt got third dose of iv iron today. pt is on ceftriaxone and doxycycline. no leukocytosis and cr is improving slightly from 2.9 to 2.7. sugar is controlled 06/06/2018 Patient's antiplatelet therapy and anti-coagulation are being held because of the nosebleeds ENT is evaluating the patient. 06/07/2018 No overnight events no more nasal bleed, anticoagulation is on hold because of hematuria and nosebleed 06/08/2018 Patient continues to have hematuria aspirin is being discontinued is significantly short of breath I'm obtaining chest x-ray. Constitutional: Denied any fatigue denied any fever. Cardio vascular: denied any chest pain, palpitations Gastrointestinal denied any nausea vomiting Pulmonary: Denied any shortness of breath cough Neurologic denied any new focal deficits Objective - Vital Signs Vital signs: Vital Signs Temp 97.2 F L 06/08/18 11:55 Pulse 129 H 06/08/18 11:55 Resp 18 06/08/18 11:55 BP 106/70 06/08/18 11:55 Pulse Ox 98 06/08/18 08:57 Intake & Output 06/07/18 06/08/18 06/08/18 18:59 06:59 18:59 Intake Total 340 400 Output Total 650 Balance -310 400 Weight 147.9 kg Intake: Oral 340 400 Output: Urine 650 Other: Voiding Method Urinal Urinal Urinal # Voids 2 # Bowel Movements 1 - Exam GENERAL: The patient is alert and oriented x3, not in any acute distress. Well developed, well nourished. HEENT: Pupils are round and equally reacting to light. EOMI. No scleral icterus. No conjunctival pallor. Normocephalic, atraumatic. No pharyngeal erythema. No thyromegaly. CARDIOVASCULAR: S1 and S2 present. No murmurs, rubs, or gallops. PULMONARY: Chest is clear to auscultation, no wheezing or crackles. ABDOMEN: Soft, nontender, nondistended, normoactive bowel sounds. No palpable organomegaly. -Urogenital: Patient has Bell catheter in place with red urine in the bag. MUSCULOSKELETAL: No joint swelling or deformity. -EXTREMITIES: No cyanosis, clubbing, bilateral pedal edema. NEUROLOGICAL: Gross neurological examination did not reveal any focal deficits. SKIN: No rashes. - Labs CBC & Chem 7: 06/08/18 06:09 06/08/18 06:09 Labs: Abnormal Lab Results - Last 24 Hours (Table) 06/07/18 06/07/18 06/08/18 Range/Units 16:37 21:19 06:09 RBC (4.30-5.90) m/uL Hgb (13.0-17.5) gm/dL Hct (39.0-53.0) % MCV (80.0-100.0) fL MCHC (31.0-37.0) g/dL RDW (11.5-15.5) % Potassium 5.5 H (3.5-5.1) mmol/L Chloride 109 H (98-107) mmol/L Carbon Dioxide 19 L (22-30) mmol/L BUN 66 H (9-20) mg/dL Creatinine 2.70 H (0.66-1.25) mg/dL Glucose 107 H (74-99) mg/dL POC Glucose (mg/dL) 171 H 119 H (75-99) mg/dL 06/08/18 06/08/18 06/08/18 Range/Units 06:09 06:18 11:46 RBC 2.33 L (4.30-5.90) m/uL Hgb 7.4 L (13.0-17.5) gm/dL Hct 24.1 L (39.0-53.0) % MCV 103.2 H (80.0-100.0) fL MCHC 30.6 L (31.0-37.0) g/dL RDW 15.6 H (11.5-15.5) % Potassium (3.5-5.1) mmol/L Chloride (98-107) mmol/L Carbon Dioxide (22-30) mmol/L BUN (9-20) mg/dL Creatinine (0.66-1.25) mg/dL Glucose (74-99) mg/dL POC Glucose (mg/dL) 131 H 125 H (75-99) mg/dL Microbiology - Last 24 Hours (Table) 06/02/18 17:30 Gram Stain - Final Lung Aspirate - Left Tissue Culture - Final Kaur albicans Kaur glabrata Gram Positive Bacilli Isolated Coagulase Negative Staph Alpha Hemolytic Streptococcus Assessment and Plan Plan: -Atrial fibrillation: Presently rate controlled anti-coagulation is on hold because of above-mentioned reasons -Hematuria, hydronephrosis: Nephrology discussed with urology regarding cystoscopy - community-acquired pneumonia patient is on ceftriaxone and doxycycline which will be continued -Shortness of breath multifactorial secondary to his heart failure exacerbation along with severe anemia Will repeat the CBC tomorrow if it is below 7 patient will be transfused -Type 2 diabetes mellitus -Hypertension -Hyperlipidemia -Acute blood loss anemia from hematuria nosebleeds, epistaxis improved continues to have hematuria -epistaxis due to above-mentioned reasons -Chronic kidney disease stage IV with a possible hydronephrosis and unilateral kidney
[2018-06-08 13:39] VITALS: BMI 45.4
[2018-06-08 14:19] LABS: Eosinophils # (M) 0.43 k/uL (0-0.7); Lymphocytes # (M) 1.56 k/uL (1.0-4.8); Monocytes # (M) 0.36 k/uL (0-1.0); Neutrophils # (M) 4.76 k/uL (1.3-7.7); Neutrophils % (M) 67 %; Nucleated Red Blood Cells 0 /100 WBC (0-0); Total Cells Counted 100
[2018-06-08 14:20] LABS: Anisocytosis (M) Present
--- NOTE | 2018-06-08 14:45 | P.PN ---
Subjective Progress Note Date: 06/08/18 This is a pleasant 73-year-old gentleman who follows with Dr. Toure in the office. He has a known history of diabetes, hypertension, hyperlipidemia , obesity, prior vascular surgery in the left leg with evidence of chronic edema. He was a transfer here from [facility]. Patient presented to [facility] with mainly complaints of pain in his left leg with associated significant increase in swelling in that leg. He states that he's had at least a 10 pound weight gain in the past one week. Patient does complain of mild shortness of breath but states that he is always somewhat short of breath with minimal exertion. Patient states that he also experienced a fall, denies any syncope, just states that he couldn't use his left foot. Patient also states that he recently had a left lower extremity venous Doppler study which was negative for any DVT. He has a chronic indwelling catheter which was recently placed because of urinary retention, there is some blood noted in his urine this morning. Patient does have a prior history of nicotine dependence and also has history of hypothyroidism, history of aortic aneurysm repair, aortobifemoral surgery and nephrectomy. Laboratory data performed at [facility] was reviewed, sodium 137, potassium 4.5, BUN 44, creatinine 2.9. BNP level 380, white blood cell count 8.8, hemoglobin 9.5, platelet count 180. EKG shows atrial fibrillation with a rapid ventricular response, heart rate 127. According to the patient, he has been told to have an irregular heartbeat and was on Eliquis for anticoagulation at home. Blood pressure 134/60 with a heart rate of 100 this morning, 93% on 4 L of oxygen. Sodium this morning 142, potassium 4.5, BUN 46, creatinine 3.0, troponin 0.020. Patient's creatinine on April 26 of this year was 0.8. At the time of my examination this morning, patient feels well, no complaints, still having some mild discomfort in his left leg. 06/03/2018 Patient was seen and examined this morning, he had a few episodes of epistaxis passing large clots, he was also having significant hematuria passing clots as well,he has been in and out of atrial fibrillation today through most of the day. Currently in normal sinus rhythm.blood pressure 138/60 with a heart rate in the 80s, 94% on room air.White blood cell count 8.4, hemoglobin 9.2, platelet count 196.patient had been on Eliquis, we will discontinue it at this time. Repeat an H&H this afternoon . 06/04/2018 Patient was seen and examined this morning, continues to have hematuria, no further epistaxis. Hemoglobin today 8.5. Continues to be in and out of atrial fibrillation.blood pressure 126/80, heart rate in the 80s to the 120s. Sodium 141, potassium 4.5, BUN 60, creatinine 2.9, magnesium 1.9. 06/07/2018 Patient was seen and examined this morning, sitting up in the chair at bedside. Feels well overall. Breathing is stable. Continues to be in atrial fibrillation, heart rate 70s to 90s.White blood cell count 7.8, hemoglobin 7.6, platelet count 245. Sodium 140, potassium 5.3, BUN 57, creatinine 2.6. 06/08/2018 Patient was seen and examined this morning, continues to have hematuria with evidence of large clots, aspirin discontinued.blood pressure 106/70 with a heart rate 90-110 Objective - Vital Signs Vital signs: Vital Signs Temp 97.2 F L 06/08/18 11:55 Pulse 129 H 06/08/18 11:55 Resp 18 06/08/18 11:55 BP 106/70 06/08/18 11:55 Pulse Ox 98 06/08/18 08:57 Intake & Output 06/07/18 06/08/18 06/08/18 18:59 06:59 18:59 Intake Total 340 400 Output Total 650 Balance -310 400 Weight 147.9 kg 147.9 kg Intake: Oral 340 400 Output: Urine 650 Other: Voiding Method Urinal Urinal Urinal # Voids 2 # Bowel Movements 1 - Exam PHYSICAL EXAMINATION: GENERAL: 73-year-old gentleman in no acute distress at the time of my examination HEENT: Head is atraumatic, normocephalic. Pupils equal, round. Sclera anicteric. Conjunctiva are clear. Mucous membranes of the mouth are moist. Neck is supple. There is no elevated jugular venous pressure. No carotid bruit is heard. HEART EXAMINATION: Heart S1-S2 normal CHEST EXAMINATION: Lungs are clear diminished air entry to bilateral bases. ABDOMEN: Soft, obese, nontender. Bowel sounds are heard. No organomegaly noted. EXTREMITIES: 1+ peripheral pulses with evidence of 2-3+ peripheral edema in the left lower extremity, 1+ in the right lower extremity . NEUROLOGIC patient is awake, alert and oriented X3. - Labs CBC & Chem 7: 06/08/18 11:47 06/08/18 06:09 Labs: Abnormal Lab Results - Last 24 Hours (Table) 06/07/18 06/07/18 06/08/18 Range/Units 16:37 21:19 06:09 RBC (4.30-5.90) m/uL Hgb (13.0-17.5) gm/dL Hct (39.0-53.0) % MCV (80.0-100.0) fL MCHC (31.0-37.0) g/dL RDW (11.5-15.5) % Potassium 5.5 H (3.5-5.1) mmol/L Chloride 109 H (98-107) mmol/L Carbon Dioxide 19 L (22-30) mmol/L BUN 66 H (9-20) mg/dL Creatinine 2.70 H (0.66-1.25) mg/dL Glucose 107 H (74-99) mg/dL POC Glucose (mg/dL) 171 H 119 H (75-99) mg/dL 06/08/18 06/08/18 06/08/18 Range/Units 06:09 06:18 11:46 RBC 2.33 L (4.30-5.90) m/uL Hgb 7.4 L (13.0-17.5) gm/dL Hct 24.1 L (39.0-53.0) % MCV 103.2 H (80.0-100.0) fL MCHC 30.6 L (31.0-37.0) g/dL RDW 15.6 H (11.5-15.5) % Potassium (3.5-5.1) mmol/L Chloride (98-107) mmol/L Carbon Dioxide (22-30) mmol/L BUN (9-20) mg/dL Creatinine (0.66-1.25) mg/dL Glucose (74-99) mg/dL POC Glucose (mg/dL) 131 H 125 H (75-99) mg/dL 06/08/18 Range/Units 11:47 RBC 2.24 L (4.30-5.90) m/uL Hgb 7.3 L (13.0-17.5) gm/dL Hct 22.7 L (39.0-53.0) % MCV 101.4 H (80.0-100.0) fL MCHC (31.0-37.0) g/dL RDW 15.7 H (11.5-15.5) % Potassium (3.5-5.1) mmol/L Chloride (98-107) mmol/L Carbon Dioxide (22-30) mmol/L BUN (9-20) mg/dL Creatinine (0.66-1.25) mg/dL Glucose (74-99) mg/dL POC Glucose (mg/dL) (75-99) mg/dL Microbiology - Last 24 Hours (Table) 06/02/18 17:30 Gram Stain - Final Lung Aspirate - Left Tissue Culture - Final Kaur albicans Kaur glabrata Gram Positive Bacilli Isolated Coagulase Negative Staph Alpha Hemolytic Streptococcus Assessment and Plan Plan: Assessment and plan #1 atrial fibrillation with rapid ventricular response, paroxysmal, on Eliquis for anticoagulation #2 acute renal failure #3 diabetes #4 hypertension #5 hyperlipidemia #6 chronic left lower extremity edema, appears to be worse according to the patient, associated pain. #7 obesity #8 prior history of smoking #9 hypothyroidism #10 prior nephrectomy #11 aortic aneurysm repair #12 bilateral fem-pop Plan Aspirin has been discontinued today.hemoglobin 7.4.We we'll continue with current dose of beta chin. DNP note has been reviewed, I agree with a documented findings and plan of care. Patient was seen and examined.
--- NOTE | 2018-06-08 15:53 | CT ---
EXAMINATION TYPE: CT abdomen pelvis wo con DATE OF EXAM: 06/08/2018 COMPARISON: Ultrasound kidneys 06/02/2018 HISTORY: Hydronephrosis, renal failure, solitary kidney. CT DLP: 1673 mGycm Automated exposure control for dose reduction was used. TECHNIQUE: Helical acquisition of images from the lung bases through the pelvis. FINDINGS: Lack of intravenous contrast could compromise sensitivity. The heart is enlarged. No perica rdial effusion. There is an anterior abdominal wall hernia in the subxiphoid location containing fat and colon. Surgi shabbir clips are present along the rectus musculature. Ostomy is present in the left lower quadrant whic h contains bowel loops and fat. Within the subcutaneous fat along the anterior abdominal wall there i s increased attenuation possibly due to inflammatory change, skin thickening in the lower anterior ab domen could indicate cellulitis. LUNG BASES: There is motion present. No pleural or pericardial effusion. Some minimal pleural thicken ing is present at the posterior costophrenic angles. AORTA: Atheromatous changes are present. Patient is status post anterior bifemoral bypass graft. At the level of the left common iliac artery there is aneurysmal dilation to approximately 7.7 cm in tra nsverse dimension by 13 cm in cephalad to caudal dimension and 7.6 cm in anterior posterior dimension . Embolization coils are thought present within the internal iliac vasculature, likely also external iliac artery on the left possibly due to exclusion, there are surgical clips posterior to the distal abdominal aorta. The aneurysm shows mass effect on the urinary bladder LIVER/GB: The liver is enlarged. Liver shows low attenuation possibly due to hepatic steatosis. Gallb ladder unremarkable as seen. PANCREAS: No significant abnormality is seen. SPLEEN: No significant abnormality is seen. ADRENALS: No significant abnormality is seen. KIDNEYS: There is a single left kidney. There is hydronephrosis present with left-sided hydroureter w hich terminates at the level of the iliac vasculature on the left. Cortical cysts are associated with the left kidney measuring 4.7 cm laterally at the inferior aspect exophytic location and in the post erior upper pole measuring 5.6 cm. The anterior aspect of the lower pole there is a low-attenuation f ocus extending to the level of the Gerota's fascia measuring 6 cm shows a somewhat thickened wall low attenuation, 0 Hounsfield units. REPRODUCTIVE ORGANS: Calcifications present within the prostate. URINARY BLADDER: Mass effect is noted due to the iliac aneurysm.. BOWEL: No significant abnormality is seen. FREE AIR: No Free Air is visible. ASCITES: None visible. PELVIC ADENOPATHY: None visualized. RETROPERITONEAL ADENOPATHY: No Retroperitoneal Adenopathy visible. OSSEOUS STRUCTURES: Degenerative disc changes, facet arthropathy noted in the lower lumbar spine IMPRESSION: LEFT ILIAC ANEURYSM DESCRIBED WITH LOCAL MASS EFFECT LIKELY ON THE DISTAL LEFT URETER, URINARY BRYCE DDER CAUSING HYDRONEPHROSIS, POSTOP CHANGES DESCRIBED STATUS POST AORTOBIFEM BYPASS GRAFT. NONCONT RAST EXAM. REPORT RELAYED TO DR. VALERA TELEPHONICALLY AT THE TIME OF INTERPRETATION. CARDIOMEGALY. HEPATOMEGALY WITH HEPATIC STEATOSIS. POSTOP CHANGES. CYSTIC FOCI ASSOCIATED WITH THE LE FT KIDNEY.
[2018-06-08 17:15] LABS: Glucose,Whole Blood 117 mg/dL (75-99)
--- NOTE | 2018-06-08 17:21 | P.PN ---
Progress Note - Text Progress Note Date: 06/08/18 The patient had an abdominal pelvic computed tomography scan without contrast this afternoon. I was contacted by Dr. Verdugo of radiology. The patient has a 7.5 cm wide by 7.5 cm deep by 13 cm long left common iliac aneurysm causing compression a left ureter. This obviously changes to situation. Vascular surgery input will be required. Whether this is something that would be handled here or outside of [place] will have to be determined. The correct management of the ureter also will need to be discussed with vascular surgery.
[2018-06-08] MEDS ORDERED: INSULIN REGULAR 100 UNIT/ML VIAL IV ONE (19:49)
[2018-06-08] MEDS ORDERED: DEXTROSE 50%-WATER 50 ML SYRINGE IVP STA (19:49)
[2018-06-08] MEDS: ATORVASTATIN 20 MG TAB PO SCH (20:49)
[2018-06-08 20:51] LABS: Glucose,Whole Blood 135 mg/dL (75-99)
--- NOTE | 2018-06-08 23:04 | PN ---
PROGRESS NOTE DATE OF SERVICE: 06/08/2018. REASON FOR FOLLOWUP: Pneumonia. INTERVAL HISTORY: The patient is currently afebrile. He seems to be breathing more comfortably. Denies significant chest pain. Occasional cough. No abdominal pain. No diarrhea. EXAMINATION: Blood pressure 107/57 with a pulse of 87, temperature 97.9. GENERAL DESCRIPTION: An elderly male, lying in bed in no distress. RESPIRATORY SYSTEM: Unlabored breathing with decreased breath sounds in the bases. No wheeze. HEART: S1, S2. Regular rate and rhythm. ABDOMEN: Soft. EXTREMITIES: No edema of the feet. LABS: Hemoglobin 7.8, white count 7.1. The patient has . Urine culture has been negative. DIAGNOSTIC IMPRESSION AND PLAN: Patient admitted to the hospital with multiple symptoms. He did have an x-ray done in the outpatient facility which was suspicious for a right upper lobe pneumonia, possible community-acquired. The patient did have overall improvement on Rocephin and doxy antibiotic and Rocephin. Continue current therapy, short course of oral Ceftin. Discontinue the doxycycline. Continue supportive care. MMODL / IJN: [id number] /
[2018-06-09] MEDS: INSULIN ASPART 100 UNIT/ML 1 ML 10 ML VIAL SQ SCH ×2 (05:52→13:46)
[2018-06-09 05:53] LABS: Glucose,Whole Blood 96 mg/dL (75-99)
[2018-06-09] MEDS: LEVOTHYROXINE 50 MCG TAB PO SCH (05:53)
[2018-06-09 07:22] LABS: HCT 23.9 % (39.0-53.0); HGB 7.4 gm/dL (13.0-17.5); Hypochromasia Marked; MCH 31.7 pg (25.0-35.0); MCHC 31.1 g/dL (31.0-37.0); MCV 101.9 fL (80.0-100.0); Macrocytosis Slight; Platelet Count 227 k/uL (150-450); RBC 2.34 m/uL (4.30-5.90); RDW 15.8 % (11.5-15.5); WBC 8.4 k/uL (3.8-10.6)
[2018-06-09 07:31] LABS: Calcium 8.9 mg/dL (8.4-10.2)
[2018-06-09 07:49] LABS: Potassium 6.5 mmol/L (3.5-5.1)
[2018-06-09] MEDS ORDERED: SODIUM BICARB 8.4% 50 ML VIAL (1 MEQ/ML) IV ONE ×2 (09:17→09:18)
[2018-06-09] MEDS ORDERED: INSULIN REGULAR 100 UNIT/ML VIAL IV ONE (09:18)
[2018-06-09] MEDS ORDERED: FUROSEMIDE 10 MG/ML 4 ML VIAL IV STA (09:19)
[2018-06-09] MEDS ORDERED: DEXTROSE 50%-WATER 50 ML SYRINGE IVP STA (09:19)
[2018-06-09] MEDS ORDERED: CALCIUM GLUCONATE 1,000 MG in SODIUM CHLORIDE 0.9% 100 ML IVPB ONE (09:19)
[2018-06-09 09:27] VITALS: RESP 18
[2018-06-09] MEDS ORDERED: SODIUM BICARB 8.4% 50 ML SYR (1 MEQ/ML) IV ONE ×2 (09:30)
[2018-06-09] MEDS: DOCUSATE 100 MG CAP PO SCH (10:57)
[2018-06-09] MEDS: PANTOPRAZOLE 40 MG TABLET PO SCH (10:57)
[2018-06-09] MEDS: GABAPENTIN 100 MG CAP PO SCH (10:57)
[2018-06-09] MEDS: METOPROLOL TARTRATE 50 MG TAB PO SCH ×3 (10:57→16:41)
[2018-06-09] MEDS: SODIUM BICARBONATE TAB 650 MG TAB PO SCH (10:58)
[2018-06-09] MEDS: DULoxetine HCL 60 MG CAPSULE.DR PO SCH (10:58)
[2018-06-09] MEDS: TAMSULOSIN 0.4 MG CAP.ER.24H PO SCH (10:58)
[2018-06-09] MEDS: ALLOPURINOL 100 MG TAB PO SCH (10:58)
[2018-06-09] MEDS: hydrALAZINE HCL 50 MG TAB PO SCH (11:02)
[2018-06-09 11:31] LABS: Glucose,Whole Blood 159 mg/dL (75-99)
--- NOTE | 2018-06-09 11:53 | P.PN ---
Subjective Progress Note Date: 06/09/18 This is a pleasant 73-year-old gentleman who follows with Dr. Toure in the office. He has a known history of diabetes, hypertension, hyperlipidemia , obesity, prior vascular surgery in the left leg with evidence of chronic edema. He was a transfer here from [facility]. Patient presented to [facility] with mainly complaints of pain in his left leg with associated significant increase in swelling in that leg. He states that he's had at least a 10 pound weight gain in the past one week. Patient does complain of mild shortness of breath but states that he is always somewhat short of breath with minimal exertion. Patient states that he also experienced a fall, denies any syncope, just states that he couldn't use his left foot. Patient also states that he recently had a left lower extremity venous Doppler study which was negative for any DVT. He has a chronic indwelling catheter which was recently placed because of urinary retention, there is some blood noted in his urine this morning. Patient does have a prior history of nicotine dependence and also has history of hypothyroidism, history of aortic aneurysm repair, aortobifemoral surgery and nephrectomy. Laboratory data performed at [facility] was reviewed, sodium 137, potassium 4.5, BUN 44, creatinine 2.9. BNP level 380, white blood cell count 8.8, hemoglobin 9.5, platelet count 180. EKG shows atrial fibrillation with a rapid ventricular response, heart rate 127. According to the patient, he has been told to have an irregular heartbeat and was on Eliquis for anticoagulation at home. Blood pressure 134/60 with a heart rate of 100 this morning, 93% on 4 L of oxygen. Sodium this morning 142, potassium 4.5, BUN 46, creatinine 3.0, troponin 0.020. Patient's creatinine on April 26 of this year was 0.8. At the time of my examination this morning, patient feels well, no complaints, still having some mild discomfort in his left leg. 06/03/2018 Patient was seen and examined this morning, he had a few episodes of epistaxis passing large clots, he was also having significant hematuria passing clots as well,he has been in and out of atrial fibrillation today through most of the day. Currently in normal sinus rhythm.blood pressure 138/60 with a heart rate in the 80s, 94% on room air.White blood cell count 8.4, hemoglobin 9.2, platelet count 196.patient had been on Eliquis, we will discontinue it at this time. Repeat an H&H this afternoon . 06/04/2018 Patient was seen and examined this morning, continues to have hematuria, no further epistaxis. Hemoglobin today 8.5. Continues to be in and out of atrial fibrillation.blood pressure 126/80, heart rate in the 80s to the 120s. Sodium 141, potassium 4.5, BUN 60, creatinine 2.9, magnesium 1.9. 06/07/2018 Patient was seen and examined this morning, sitting up in the chair at bedside. Feels well overall. Breathing is stable. Continues to be in atrial fibrillation, heart rate 70s to 90s.White blood cell count 7.8, hemoglobin 7.6, platelet count 245. Sodium 140, potassium 5.3, BUN 57, creatinine 2.6. 06/08/2018 Patient was seen and examined this morning, continues to have hematuria with evidence of large clots, aspirin discontinued.blood pressure 106/70 with a heart rate 90-110. 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 Arrangements are being made for the patient to be transferred to [facility] this morning. Blood pressure this morning 110/60 with a heart rate in the 50s, 98% on room air. White blood cell count 8.4, hemoglobin 7.4, platelet count 227. Sodium 139, potassium 6.5, BUN 75 and creatinine 2.7. Overall the patient states he feels better this morning, no overt complaints. Currently in a normal sinus rhythm. Objective - Vital Signs Vital signs: Vital Signs Temp 97.5 F L 06/09/18 11:02 Pulse 61 06/09/18 11:02 Resp 18 06/09/18 11:02 BP 99/58 06/09/18 11:02 Pulse Ox 98 06/09/18 09:21 Intake & Output 06/08/18 06/09/18 06/09/18 18:59 06:59 18:59 Intake Total 280 Output Total 1775 1 Balance -1495 -1 Weight 147.9 kg 147.5 kg Intake: Intake, IV Titration 100 Amount Doxycycline 100 mg In 100 Sodium Chloride 0.9% 100 ml @ 66.67 mls/hr IVPB Q12H [facility] Rx#:[id number] Oral 180 Output: Urine 1775 Urine/Stool Mix 1 Other: Voiding Method Urinal Bedside Commode Bedside Commode Urinal Urinal # Voids 1 1 # Bowel Movements 1 1 - Exam PHYSICAL EXAMINATION: GENERAL: 73-year-old gentleman in no acute distress at the time of my examination HEENT: Head is atraumatic, normocephalic. Pupils equal, round. Sclera anicteric. Conjunctiva are clear. Mucous membranes of the mouth are moist. Neck is supple. There is no elevated jugular venous pressure. No carotid bruit is heard. HEART EXAMINATION: Heart S1-S2 normal CHEST EXAMINATION: Lungs are clear diminished air entry to bilateral bases. ABDOMEN: Soft, obese, nontender. Bowel sounds are heard. No organomegaly noted. EXTREMITIES: 1+ peripheral pulses with evidence of 2+ peripheral edema in the left lower extremity, 1+ in the right lower extremity . NEUROLOGIC patient is awake, alert and oriented X3. - Labs CBC & Chem 7: 06/09/18 07:04 06/09/18 07:04 Labs: Abnormal Lab Results - Last 24 Hours (Table) 06/08/18 06/08/18 06/08/18 Range/Units 11:46 11:47 17:11 RBC 2.24 L (4.30-5.90) m/uL Hgb 7.3 L (13.0-17.5) gm/dL Hct 22.7 L (39.0-53.0) % MCV 101.4 H (80.0-100.0) fL RDW 15.7 H (11.5-15.5) % Potassium (3.5-5.1) mmol/L Chloride (98-107) mmol/L Carbon Dioxide (22-30) mmol/L BUN (9-20) mg/dL Creatinine (0.66-1.25) mg/dL POC Glucose (mg/dL) 125 H 117 H (75-99) mg/dL 06/08/18 06/08/18 06/09/18 Range/Units 18:25 20:50 07:04 RBC (4.30-5.90) m/uL Hgb (13.0-17.5) gm/dL Hct (39.0-53.0) % MCV (80.0-100.0) fL RDW (11.5-15.5) % Potassium 5.5 H 6.5 H* (3.5-5.1) mmol/L Chloride 110 H (98-107) mmol/L Carbon Dioxide 20 L (22-30) mmol/L BUN 75 H (9-20) mg/dL Creatinine 2.79 H (0.66-1.25) mg/dL POC Glucose (mg/dL) 135 H (75-99) mg/dL 06/09/18 06/09/18 Range/Units 07:04 11:22 RBC 2.34 L (4.30-5.90) m/uL Hgb 7.4 L (13.0-17.5) gm/dL Hct 23.9 L (39.0-53.0) % MCV 101.9 H (80.0-100.0) fL RDW 15.8 H (11.5-15.5) % Potassium (3.5-5.1) mmol/L Chloride (98-107) mmol/L Carbon Dioxide (22-30) mmol/L BUN (9-20) mg/dL Creatinine (0.66-1.25) mg/dL POC Glucose (mg/dL) 159 H (75-99) mg/dL Assessment and Plan Plan: Assessment and plan #1 atrial fibrillation with rapid ventricular response, paroxysmal, on Eliquis for anticoagulation #2 acute renal failure #3 diabetes #4 hypertension #5 hyperlipidemia #6 chronic left lower extremity edema, appears to be worse according to the patient, associated pain. #7 obesity #8 prior history of smoking #9 hypothyroidism #10 prior nephrectomy #11 aortic aneurysm repair #12 bilateral fem-pop Plan CT of the abdomen was performed yesterday afternoon and revealed a significant left iliac aneurysm this described previously with local mass effect likely on the distal left ureter, urinary bladder causing hydronephrosis. Arrangements are currently being made for the patient to be transferred to for today. DNP note has been reviewed, I agree with a documented findings and plan of care. Patient was seen and examined.
--- NOTE | 2018-06-09 13:15 | P.PN ---
Subjective Patient is seen in follow-up for acute kidney injury on chronic kidney disease. Creatinine staying in the range of 2.7-2.8 the last few days - 2.79 today. 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 He is nonoliguric. He pulled out his Melchor catheter by accident. He has been voiding. Denies chest pain. Heart rate controlled. Oral intake is good. No vomiting or diarrhea. Potassium level .5 this morning. This was medically treated. Repeat potassium level is 5.5. He had a CAT scan of the abdomen and pelvis done yesterday which revealed large left iliac aneurysm compressing on the left ureter causing hydronephrosis. He was evaluated by vascular surgery and is currently in the process of being transferred to [facility]. Vital signs are stable. General: The patient appeared well nourished and normally developed. HEENT: Head exam is unremarkable. Neck is without jugular venous distension. LUNGS: Lungs are clear to auscultation and percussion. Breath sounds decreased. HEART: Rate and Rhythm are regular. First and second heart sounds normal. No murmurs, rubs or gallops. ABDOMEN: Abdominal exam reveals normal bowel sounds. Non-tender and non- distended. No evidence of peritonitis. EXTREMITITES: 1+ edema in the right lower extremity. Chronic skin changes noted in the left lower extremity. Objective - Vital Signs Vital signs: Vital Signs Temp 97.5 F L 06/09/18 11:02 Pulse 61 06/09/18 11:02 Resp 18 06/09/18 11:02 BP 99/58 06/09/18 11:02 Pulse Ox 98 06/09/18 09:21 Intake & Output 06/08/18 06/09/18 06/09/18 18:59 06:59 18:59 Intake Total 280 240 Output Total 1775 1 Balance -1495 -1 240 Weight 147.9 kg 147.5 kg Intake: Intake, IV Titration 100 Amount Doxycycline 100 mg In 100 Sodium Chloride 0.9% 100 ml @ 66.67 mls/hr IVPB Q12H [facility] Rx#:[id number] Oral 180 240 Output: Urine 1775 Urine/Stool Mix 1 Other: Voiding Method Urinal Bedside Commode Bedside Commode Urinal Urinal # Voids 1 1 1 # Bowel Movements 1 1 - Labs CBC & Chem 7: 06/09/18 07:04 06/09/18 12:15 Labs: Abnormal Lab Results - Last 24 Hours (Table) 06/08/18 06/08/18 06/08/18 Range/Units 11:47 17:11 18:25 RBC 2.24 L (4.30-5.90) m/uL Hgb 7.3 L (13.0-17.5) gm/dL Hct 22.7 L (39.0-53.0) % MCV 101.4 H (80.0-100.0) fL RDW 15.7 H (11.5-15.5) % Potassium 5.5 H (3.5-5.1) mmol/L Chloride (98-107) mmol/L Carbon Dioxide (22-30) mmol/L BUN (9-20) mg/dL Creatinine (0.66-1.25) mg/dL POC Glucose (mg/dL) 117 H (75-99) mg/dL 06/08/18 06/09/18 06/09/18 Range/Units 20:50 07:04 07:04 RBC 2.34 L (4.30-5.90) m/uL Hgb 7.4 L (13.0-17.5) gm/dL Hct 23.9 L (39.0-53.0) % MCV 101.9 H (80.0-100.0) fL RDW 15.8 H (11.5-15.5) % Potassium 6.5 H* (3.5-5.1) mmol/L Chloride 110 H (98-107) mmol/L Carbon Dioxide 20 L (22-30) mmol/L BUN 75 H (9-20) mg/dL Creatinine 2.79 H (0.66-1.25) mg/dL POC Glucose (mg/dL) 135 H (75-99) mg/dL 06/09/18 06/09/18 Range/Units 11:22 12:15 RBC (4.30-5.90) m/uL Hgb (13.0-17.5) gm/dL Hct (39.0-53.0) % MCV (80.0-100.0) fL RDW (11.5-15.5) % Potassium 5.5 H (3.5-5.1) mmol/L Chloride (98-107) mmol/L Carbon Dioxide (22-30) mmol/L BUN (9-20) mg/dL Creatinine (0.66-1.25) mg/dL POC Glucose (mg/dL) 159 H (75-99) mg/dL Assessment and Plan Plan: Assessment: 1. Acute kidney injury secondary to ATN secondary to obstructive uropathy. Creatinine 3 on admission and now staying in the range of 2.7-2.8. 2.79 today. 2. Chronic kidney disease stage II secondary to solitary left kidney. Baseline creatinine near 1. 3. Urinary retention status post Melchor catheter placement. Patient removed it by accident. Urology following. 4. Anemia. iron deficiency noted. Status post 3 doses of IV iron completed June 05. 5. A. fib with RVR. Cardiology following. Anticoagulation held. 6. Diabetes mellitus. 7. History of right-sided nephrectomy in 1987. 8. Enlarged left kidney with multiple cysts. This is suggestive of polycystic kidney disease. Patient denies family history of renal disease. 9. Pyuria. Urine culture negative so far. 10. Pneumonia maintained on antibiotics. Infectious disease following. 11. Hydronephrosis in the left solitary kidney. Urology following. 12. Hyperkalemia secondary to acute kidney injury and metabolic acidosis. Improved with medical management. Repeat potassium level V.5. 13. Metabolic acidosis secondary to acute kidney injury. 14. Large left iliac aneurysm compressing on the left ureter causing hydronephrosis. Patient has been in relatively vascular surgery. He is in the process of being transferred to [facility]. Plan: Monitor postvoid residuals. Maintain Flomax. Encouraged oral intake. Continue to hold losartan for now. Maintain current antihypertensives. Low potassium diet. Repeat electrolytes in the morning. Maintain sodium bicarbonate. Plan to transfer to [facility] for further evaluation of the left iliac aneurysm.
[2018-06-09 16:21] VITALS: BP 125/78; PULSE 62; TEMP 97.6
[2018-06-09 16:25] LABS: Glucose,Whole Blood 150 mg/dL (75-99)
== END 2018-06-09 18:30 | disposition short-term general hospital (02) | DRG 682 ==
LOC: 3SCARD 22:06
PROVIDERS: ADMIT Internal Medicine; ATTEND Internal Medicine
DX: N17.0 Acute kidney failure with tubular necrosis (principal); J18.9 Pneumonia, unspecified organism; E87.2 Acidosis; I13.0 Hypertensive heart and chronic kidney disease with heart failure and stage 1 through stage 4 chronic kidney disease, or unspecified chronic kidney disease; N13.8 Other obstructive and reflux uropathy; Z68.42 Body mass index [BMI] 45.0-49.9, adult; D62 Acute posthemorrhagic anemia; I48.0 Paroxysmal atrial fibrillation; I50.9 Heart failure, unspecified; I72.3 Aneurysm of iliac artery; E87.5 Hyperkalemia; E11.22 Type 2 diabetes mellitus with diabetic chronic kidney disease; E66.01 Morbid (severe) obesity due to excess calories; D50.9 Iron deficiency anemia, unspecified; E03.9 Hypothyroidism, unspecified; E78.5 Hyperlipidemia, unspecified; E86.1 Hypovolemia; F32.9 Major depressive disorder, single episode, unspecified; I25.10 Atherosclerotic heart disease of native coronary artery without angina pectoris; I25.2 Old myocardial infarction; N18.4 Chronic kidney disease, stage 4 (severe); N40.0 Benign prostatic hyperplasia without lower urinary tract symptoms; R04.0 Epistaxis; R29.6 Repeated falls; R32 Unspecified urinary incontinence; M10.9 Gout, unspecified; M54.17 Radiculopathy, lumbosacral region; R31.9 Hematuria, unspecified; G89.29 Other chronic pain; M79.605 Pain in left leg; N13.30 Unspecified hydronephrosis; R60.0 Localized edema; R33.9 Retention of urine, unspecified; T50.2X5A Adverse effect of carbonic-anhydrase inhibitors, benzothiadiazides and other diuretics, initial encounter; Y92.9 Unspecified place or not applicable; Z79.84 Long term (current) use of oral hypoglycemic drugs; Z79.01 Long term (current) use of anticoagulants; Z79.899 Other long term (current) drug therapy; Z79.82 Long term (current) use of aspirin; Z79.890 Hormone replacement therapy; Z87.891 Personal history of nicotine dependence; Z90.5 Acquired absence of kidney; Z95.1 Presence of aortocoronary bypass graft; Z87.01 Personal history of pneumonia (recurrent); Z86.79 Personal history of other diseases of the circulatory system
CPT/HCPCS: 71045; 74176; 76770; 80048; 81001; 82728; 83036; 83540; 83550; 83735; 84132; 84443; 84484; 85025; 85027; 85610; 85730; 87070; 87086; 87205; 94760